=== PATIENT | female | born 1965 | race African-American/Black ===

== ENCOUNTER 2018-12-10 16:48 | Inpatient (IN) | payer MEDICAID, OTHER ==
[~2018-12-10] VITALS: Ht 157.5 cm; Wt 142.2 kg
[~2018-12-10 16:48] MED LIST: AMI2 PO; ATOR-2 PO; CARV6.2548 PO; CLOP75TA15 PO; FERR-63 PO; FURO20TA4 PO; LOSA25TA3 PO; NITR0.4T49 SL
[2018-12-10] MEDS ORDERED: FUROSEMIDE 40MG/4ML VIAL IV ONE (18:30)
[2018-12-10] MEDS ORDERED: NITROGLYCERIN OINT 1GM/INCH UDPKT TD ONE (18:30)
[2018-12-10] MEDS ORDERED: ASPIRIN 81MG TABLET PO ONE (18:30)
[2018-12-10 19:12] LABS: BASOPHILS % 0.8 % (0.0-2.0); EOSINOPHILS % 0.6 % (0.0-5.0); HEMATOCRIT. 39.2 % (36.0-48.0); HEMOGLOBIN. 12.6 g/dL (12.0-16.0); LYMPHOCYTES % 16.9 % (20.0-50.0); MEAN CORPUSCULAR HEMOGLOBIN 26.7 pg (28.0-32.0); MEAN CORPUSCULAR VOLUME 83.1 fL (81.0-99.0); MEAN PLATELET VOLUME 8.8 fl (7.4-10.4); MONOCYTES % 7.5 % (2.0-8.0); NEUTROPHILS % 74.2 % (40.0-76.0); PLATELET 317 x1000/uL (130-400); RED BLOOD CELL COUNT 4.72 mill/uL (4.2-5.4); RED CELL DISTRIBUTION WIDTH 15.3 % (11.6-14.6)
[2018-12-10 19:13] LABS: CHLORIDE 110 mEq/L (98-107)
[2018-12-10 19:16] LABS: INR 1.2; PARTIAL THROMBOPLASTIN TIME 27.7 sec (23.4-31.0)
[2018-12-10] MEDS ORDERED: MAGNESIUM/ALUMINUM HYDROXIDE/SIMETHICONE 30ML UDC PO PRN (21:00)
[2018-12-10] MEDS ORDERED: CLONIDINE 0.1MG TABLET PO PRN (21:00)
[2018-12-10] MEDS ORDERED: IPRATROPIUM/ALBUTEROL 0.5-3(2.5)MG/3ML NEB INH PRN (21:00)
[2018-12-10] MEDS ORDERED: GUAIFENESIN 200MG/10ML SUGAR FREE UDC PO PRN (21:00)
[2018-12-10] MEDS ORDERED: ACETAMINOPHEN 325MG TABLET PO PRN (21:00)
[2018-12-10] MEDS ORDERED: DOCUSATE SODIUM 100MG CAPSULE PO PRN (21:00)
[2018-12-10] MEDS ORDERED: ONDANSETRON HCL 4MG/2ML INJ IV PRN (21:00)
[2018-12-10] MEDS ORDERED: ENOXAPARIN 40MG/0.4ML SYR SUBCUT SCH (21:00)
[2018-12-11 00:39] LABS: CHLORIDE 108 mEq/L (98-107)
[2018-12-11 00:48] LABS: CREATINE KINASE 56 IU/L (26-192)
[2018-12-11 00:50] LABS: CREATINE KINASE MB FRACTION < 1.0 ng/mL (0.5-3.6)
[2018-12-11 05:55] LABS: BASOPHILS % 0.6 % (0.0-2.0); EOSINOPHILS % 0.5 % (0.0-5.0); HEMATOCRIT. 39.4 % (36.0-48.0); HEMOGLOBIN. 12.6 g/dL (12.0-16.0); LYMPHOCYTES % 17.3 % (20.0-50.0); MEAN CORPUSCULAR HEMOGLOBIN 26.4 pg (28.0-32.0); MEAN CORPUSCULAR VOLUME 82.5 fL (81.0-99.0); MEAN PLATELET VOLUME 8.9 fl (7.4-10.4); MONOCYTES % 8.4 % (2.0-8.0); NEUTROPHILS % 73.2 % (40.0-76.0); PLATELET 307 x1000/uL (130-400); RED BLOOD CELL COUNT 4.78 mill/uL (4.2-5.4)
[2018-12-11 05:59] LABS: LDL CHOLESTEROL 97 mg/dL (5-100)
[2018-12-11 06:00] LABS: CREATINE KINASE 61 IU/L (26-192); HDL CHOLESTEROL 45 mg/dL (40-59)
[2018-12-11 06:02] LABS: CREATINE KINASE MB FRACTION < 1.0 ng/mL (0.5-3.6)
[2018-12-11 08:30] VITALS: BP 168/88
[2018-12-11] MEDS: FUROSEMIDE 40MG/4ML VIAL IV SCH ×2 (10:22→17:49)
[2018-12-11] MEDS: HYDROCODONE/ACETAMINOPHEN 5/325MG TABLET PO PRN ×3 (10:23→21:57)
[2018-12-11] MEDS: ENOXAPARIN 30MG/0.3ML SYR SUBCUT SCH ×2 (10:24→21:57)
[2018-12-11 12:00] VITALS: BP 120/56
[2018-12-11 16:00] VITALS: BP 124/70
[2018-12-11 20:28] VITALS: BP 123/52
[2018-12-12] VITALS: BP 135/80
[2018-12-12 04:00] VITALS: BP 128/77
[2018-12-12] MEDS: HYDROCODONE/ACETAMINOPHEN 5/325MG TABLET PO PRN ×2 (05:27→13:01)
[2018-12-12] MEDS: FUROSEMIDE 40MG/4ML VIAL IV SCH ×2 (06:27→17:15)
[2018-12-12 07:51] LABS: CHLORIDE 102 mEq/L (98-107)
[2018-12-12 08:00] VITALS: BP 146/81
[2018-12-12] MEDS ORDERED: CARVEDILOL 6.25 MG TABLET PO SCH (09:00)
[2018-12-12] MEDS ORDERED: CLOPIDOGREL 75MG TABLET PO SCH (09:00)
[2018-12-12] MEDS ORDERED: LOSARTAN POTASSIUM 25 MG TABLET PO SCH (09:00)
[2018-12-12] MEDS ORDERED: AMIODARONE HCL 200 MG TABLET PO SCH (09:00)
[2018-12-12] MEDS: ENOXAPARIN 30MG/0.3ML SYR SUBCUT SCH (09:19)
[2018-12-12 12:00] VITALS: BP 153/84
[2018-12-12] MEDS: FERROUS SULFATE 325MG TABLET PO SCH ×2 (12:53→17:16)
[2018-12-12 14:16] VITALS: BP 140/84
[2018-12-12] MEDS ORDERED: ENOXAPARIN 40MG/0.4ML SYR SUBCUT SCH ×2 (15:57→21:00)
[2018-12-12 16:00] VITALS: BP 140/80
[2018-12-12] MEDS ORDERED: ATORVASTATIN CALCIUM 40MG TABLET PO SCH (21:00)
== END 2018-12-12 17:56 | disposition home or self-care (01) | DRG 194 ==
LOC: ER 16:48 → 6WST 21:54 → EDBEDREQ 21:55 → EDBEDREQTM 21:55 → ENRESERV 12-11 07:15
PROVIDERS: ADMIT Internal Medicine; ATTEND Internal Medicine
DX: I11.0 Hypertensive heart disease with heart failure (principal); J96.10 Chronic respiratory failure, unspecified whether with hypoxia or hypercapnia; I27.20 Pulmonary hypertension, unspecified; I50.23 Acute on chronic systolic (congestive) heart failure; E78.5 Hyperlipidemia, unspecified; D72.829 Elevated white blood cell count, unspecified; G47.00 Insomnia, unspecified; I25.10 Atherosclerotic heart disease of native coronary artery without angina pectoris; I25.2 Old myocardial infarction; Z95.810 Presence of automatic (implantable) cardiac defibrillator; Z86.79 Personal history of other diseases of the circulatory system; Z95.5 Presence of coronary angioplasty implant and graft; Z79.899 Other long term (current) drug therapy
CPT/HCPCS: 36415; 71045; 80048; 80061; 82550; 82553; 83735; 83880; 84443; 84484; 85379; 93005; 93306; 93970; 96374; 99285; J1650; J1940

== ENCOUNTER 2018-12-27 18:05 | Emergency (ER) | payer MEDICAID, OTHER ==
[~2018-12-27] VITALS: Ht 160 cm; Wt 136.0 kg
[2018-12-27] MEDS ORDERED: ACETAMINOPHEN 325MG TABLET PO STA (18:54)
[2018-12-27 19:03] LABS: BASOPHILS % 0.4 % (0.0-2.0); EOSINOPHILS % 0.8 % (0.0-5.0); HEMATOCRIT. 41.2 % (36.0-48.0); HEMOGLOBIN. 13.4 g/dL (12.0-16.0); LYMPHOCYTES % 25.2 % (20.0-50.0); MEAN CORPUSCULAR VOLUME 83.4 fL (81.0-99.0); MONOCYTES % 12.3 % (2.0-8.0); NEUTROPHILS % 61.3 % (40.0-76.0); PLATELET 249 x1000/uL (130-400); RED BLOOD CELL COUNT 4.94 mill/uL (4.2-5.4); RED CELL DISTRIBUTION WIDTH 14.7 % (11.6-14.6)
[2018-12-27 19:07] LABS: CHLORIDE 92 mEq/L (98-107)
[2018-12-27 19:08] LABS: INR 1.1; PROTHROMBIN TIME 11.4 sec (9.6-11.0)
[2018-12-27 20:30] VITALS: BP 127/81
[2018-12-27] MEDS: POTASSIUM CHLORIDE 20MEQ TABLET SR PO NR (20:30)
== END 2018-12-27 20:57 | disposition home or self-care (01) ==
LOC: ER 18:27
DX: I11.0 Hypertensive heart disease with heart failure (principal); I50.9 Heart failure, unspecified; R07.9 Chest pain, unspecified; R06.02 Shortness of breath; I25.2 Old myocardial infarction; Z79.899 Other long term (current) drug therapy; Z88.6 Allergy status to analgesic agent; Z95.0 Presence of cardiac pacemaker
CPT/HCPCS: 36415; 71045; 81025; 84484; 93005; 99284

== ENCOUNTER 2019-01-31 23:36 | Emergency (ER) | payer MEDICAID ==
[~2019-01-31] VITALS: Ht 162.6 cm; Wt 127.0 kg
[2019-02-01] MEDS ORDERED: FUROSEMIDE 40MG/4ML VIAL IV ONE
[2019-02-01] MEDS ORDERED: ASPIRIN 81MG TABLET PO ONE
[2019-02-01 01:01] LABS: CHLORIDE 104 mEq/L (98-107)
[2019-02-01 01:04] LABS: BASOPHILS % 0.4 % (0.0-2.0); EOSINOPHILS % 0.4 % (0.0-5.0); HEMATOCRIT. 37.3 % (36.0-48.0); HEMOGLOBIN. 12.4 g/dL (12.0-16.0); LYMPHOCYTES % 18.3 % (20.0-50.0); MEAN CORPUSCULAR VOLUME 84.5 fL (81.0-99.0); MEAN PLATELET VOLUME 8.6 fl (7.4-10.4); MONOCYTES % 8.7 % (2.0-8.0); NEUTROPHILS % 72.2 % (40.0-76.0); PLATELET 263 x1000/uL (130-400); RED BLOOD CELL COUNT 4.42 mill/uL (4.2-5.4); RED CELL DISTRIBUTION WIDTH 15.5 % (11.6-14.6)
[2019-02-01] MEDS ORDERED: KETOROLAC 30MG/ML VIAL IV ONE (04:00)
[2019-02-01 05:03] VITALS: BP 122/63
== END 2019-02-01 05:04 | disposition home or self-care (01) ==
LOC: ER 23:38
DX: I11.0 Hypertensive heart disease with heart failure (principal); I50.9 Heart failure, unspecified; J44.9 Chronic obstructive pulmonary disease, unspecified; E78.00 Pure hypercholesterolemia, unspecified; Z79.899 Other long term (current) drug therapy; Z88.6 Allergy status to analgesic agent
CPT/HCPCS: 36415; 71045; 80053; 83880; 84484; 85025; 93005; 96374; 96375; 99284; J1885; J1940; Z7610

== ENCOUNTER 2019-02-23 06:32 | Inpatient (IN) | payer MEDICAID, OTHER ==
[~2019-02-23] VITALS: Ht 157.5 cm; Wt 131.1 kg
[2019-02-23 07:33] LABS: BASOPHILS % 0.3 % (0.0-2.0); EOSINOPHILS % 0.8 % (0.0-5.0); HEMOGLOBIN. 13.5 g/dL (12.0-16.0); LYMPHOCYTES % 21.8 % (20.0-50.0); MEAN CORPUSCULAR HEMOGLOBIN 27.5 pg (28.0-32.0); MEAN CORPUSCULAR VOLUME 83.3 fL (81.0-99.0); MONOCYTES % 10.9 % (2.0-8.0); NEUTROPHILS % 66.2 % (40.0-76.0); PLATELET 287 x1000/uL (130-400); RED BLOOD CELL COUNT 4.92 mill/uL (4.2-5.4); RED CELL DISTRIBUTION WIDTH 15.3 % (11.6-14.6)
[2019-02-23 07:50] LABS: CHLORIDE 95 mEq/L (98-107)
[2019-02-23 08:03] LABS: INR 1.2; PARTIAL THROMBOPLASTIN TIME 25.9 sec (23.4-31.0); PROTHROMBIN TIME 11.8 sec (9.6-11.0)
[2019-02-23] MEDS ORDERED: POTASSIUM CHLORIDE 20MEQ TABLET SR PO ONE (08:15)
[2019-02-23] MEDS ORDERED: NITROGLYCERIN OINT 1GM/INCH UDPKT TD ONE (08:15)
[2019-02-23] MEDS ORDERED: MORPHINE SULFATE 4 MG/ML CPJ (NOT FOR IM USE) IV ONE (08:15)
[2019-02-23] MEDS ORDERED: ONDANSETRON HCL 4MG/2ML INJ IV ONE (08:15)
[2019-02-23 09:41] VITALS: BP 116/72
[2019-02-23] MEDS ORDERED: POTA-79 MT (10:07)
[2019-02-23] MEDS ORDERED: NITROGLYCERIN 0.4MG TABLET SL SL PRN (10:45)
[2019-02-23 10:49] VITALS: BP 116/72
[2019-02-23] MEDS: LOSARTAN POTASSIUM 25 MG TABLET PO SCH (11:53)
[2019-02-23] MEDS: CLOPIDOGREL 75MG TABLET PO SCH (11:53)
[2019-02-23] MEDS: FERROUS SULFATE 325MG TABLET PO SCH ×2 (11:54→18:02)
[2019-02-23] MEDS: TRAMADOL 50MG TABLET PO PRN ×2 (11:59→18:02)
[2019-02-23 12:00] VITALS: BP 118/67
[2019-02-23 12:25] VITALS: BP 112/52
[2019-02-23 16:30] VITALS: BP 110/54
[2019-02-23 20:00] VITALS: BP 91/43
[2019-02-23] MEDS: ATORVASTATIN CALCIUM 40MG TABLET PO SCH (20:33)
[2019-02-23] MEDS: CARVEDILOL 6.25 MG TABLET PO SCH (20:33)
[2019-02-23] MEDS ORDERED: CLONIDINE 0.1MG TABLET PO PRN (20:45)
[2019-02-23] MEDS ORDERED: TEMAZEPAM 15MG CAPSULE PO PRN (20:45)
[2019-02-23] MEDS ORDERED: MAGNESIUM HYDROXIDE 400MG/5ML 30ML UDC PO PRN (20:45)
[2019-02-23] MEDS ORDERED: MAGNESIUM/ALUMINUM HYDROXIDE/SIMETHICONE 30ML UDC PO PRN (20:45)
[2019-02-23] MEDS ORDERED: ONDANSETRON HCL 4MG/2ML INJ IV PRN (20:45)
[2019-02-23] MEDS ORDERED: DIPHENHYDRAMINE 50MG/ML VIAL IV PRN (20:45)
[2019-02-23] MEDS ORDERED: GUAIFENESIN 200MG/10ML SUGAR FREE UDC PO PRN (20:45)
[2019-02-23] MEDS ORDERED: CARVEDILOL 6.25 MG TABLET PO SCH (21:00)
[2019-02-23] MEDS ORDERED: AMIODARONE HCL 200 MG TABLET PO SCH (21:00)
[2019-02-23] MEDS ORDERED: ATORVASTATIN CALCIUM 40MG TABLET PO SCH (21:00)
[2019-02-23] MEDS: FAMOTIDINE 20MG TABLET PO SCH (21:13)
[2019-02-23] MEDS: ENOXAPARIN 30MG/0.3ML SYR SUBCUT SCH (21:17)
[2019-02-23] MEDS: SODIUM CHLORIDE 0.9% INJ 3ML FLUSH IVF SCH (22:29)
[2019-02-24] VITALS: BP 97/42
[2019-02-24 04:00] VITALS: BP 111/47
[2019-02-24] MEDS: SODIUM CHLORIDE 0.9% INJ 3ML FLUSH IVF SCH ×3 (05:53→21:17)
[2019-02-24 07:36] VITALS: BP 112/61
[2019-02-24 07:45] LABS: BASOPHILS % 0.5 % (0.0-2.0); EOSINOPHILS % 0.4 % (0.0-5.0); HEMATOCRIT. 37.5 % (36.0-48.0); HEMOGLOBIN. 12.2 g/dL (12.0-16.0); LYMPHOCYTES % 22.5 % (20.0-50.0); MEAN CORPUSCULAR HEMOGLOBIN 27.2 pg (28.0-32.0); MEAN CORPUSCULAR VOLUME 83.8 fL (81.0-99.0); MEAN PLATELET VOLUME 8.9 fl (7.4-10.4); MONOCYTES % 13.4 % (2.0-8.0); NEUTROPHILS % 63.2 % (40.0-76.0); PLATELET 263 x1000/uL (130-400); RED BLOOD CELL COUNT 4.48 mill/uL (4.2-5.4); RED CELL DISTRIBUTION WIDTH 15.1 % (11.6-14.6)
[2019-02-24 08:20] LABS: CHLORIDE 96 mEq/L (98-107)
[2019-02-24] MEDS: FAMOTIDINE 20MG TABLET PO SCH (08:37)
[2019-02-24] MEDS: AMIODARONE HCL 200 MG TABLET PO SCH ×2 (08:38→21:17)
[2019-02-24] MEDS: POTASSIUM CHLORIDE 20MEQ TABLET SR PO SCH (08:39)
[2019-02-24] MEDS: CLOPIDOGREL 75MG TABLET PO SCH (08:39)
[2019-02-24] MEDS: LOSARTAN POTASSIUM 25 MG TABLET PO SCH (08:40)
[2019-02-24] MEDS: FERROUS SULFATE 325MG TABLET PO SCH ×3 (08:40→16:54)
[2019-02-24] MEDS: TRAMADOL 50MG TABLET PO PRN ×2 (08:43→19:20)
[2019-02-24] MEDS: FUROSEMIDE 40MG/4ML VIAL IVP SCH (08:45)
[2019-02-24] MEDS ORDERED: FERROUS SULFATE 325MG TABLET PO SCH (09:00)
[2019-02-24] MEDS ORDERED: LOSARTAN POTASSIUM 25 MG TABLET PO SCH (09:00)
[2019-02-24] MEDS: CARVEDILOL 6.25 MG TABLET PO SCH ×2 (09:00→20:38)
[2019-02-24] MEDS ORDERED: CLOPIDOGREL 75MG TABLET PO SCH (09:00)
[2019-02-24] MEDS ORDERED: POTASSIUM CHLORIDE 20MEQ TABLET SR PO NR ×2 (10:00→12:00)
[2019-02-24] MEDS: ENOXAPARIN 30MG/0.3ML SYR SUBCUT SCH ×2 (10:51→21:16)
[2019-02-24 11:41] LABS: T4 FREE 1.08 ng/dL (0.76-1.46)
[2019-02-24 12:11] VITALS: BP 106/54
[2019-02-24 15:21] LABS: CREATINE KINASE 40 IU/L (26-192)
[2019-02-24 15:22] LABS: CREATINE KINASE MB FRACTION < 1.0 ng/mL (0.5-3.6)
[2019-02-24 16:25] VITALS: BP 96/46
[2019-02-24 20:00] VITALS: BP 109/40
[2019-02-24] MEDS: ATORVASTATIN CALCIUM 40MG TABLET PO SCH (21:17)
[2019-02-25] VITALS: BP 142/87
[2019-02-25 00:21] LABS: CREATINE KINASE 47 IU/L (26-192)
[2019-02-25 00:22] LABS: CREATINE KINASE MB FRACTION < 1.0 ng/mL (0.5-3.6)
[2019-02-25] MEDS: TRAMADOL 50MG TABLET PO PRN ×4 (03:26→20:27)
[2019-02-25 04:00] VITALS: BP 110/45
[2019-02-25 07:47] LABS: CREATINE KINASE 50 IU/L (26-192); CREATINE KINASE MB FRACTION < 1.0 ng/mL (0.5-3.6)
[2019-02-25 08:00] VITALS: BP 114/53
[2019-02-25] MEDS: POTASSIUM CHLORIDE 20MEQ TABLET SR PO SCH (08:31)
[2019-02-25] MEDS: CLOPIDOGREL 75MG TABLET PO SCH (08:31)
[2019-02-25] MEDS: ASPIRIN 81MG TABLET PO SCH (08:31)
[2019-02-25] MEDS: FERROUS SULFATE 325MG TABLET PO SCH ×3 (08:31→20:24)
[2019-02-25] MEDS: AMIODARONE HCL 200 MG TABLET PO SCH ×2 (08:31→20:26)
[2019-02-25] MEDS: FUROSEMIDE 40MG/4ML VIAL IVP SCH (08:32)
[2019-02-25] MEDS: ENOXAPARIN 30MG/0.3ML SYR SUBCUT SCH (08:32)
[2019-02-25] MEDS: LOSARTAN POTASSIUM 25 MG TABLET PO SCH (08:32)
[2019-02-25] MEDS: CARVEDILOL 6.25 MG TABLET PO SCH ×2 (08:32→20:26)
[2019-02-25 12:32] VITALS: BP 98/49
[2019-02-25] MEDS: SODIUM CHLORIDE 0.9% INJ 3ML FLUSH IVF SCH ×2 (14:11→14:12)
[2019-02-25 16:58] VITALS: BP 100/51
[2019-02-25 20:00] VITALS: BP 100/63
[2019-02-25] MEDS: ATORVASTATIN CALCIUM 40MG TABLET PO SCH (20:24)
[2019-02-25] MEDS: FAMOTIDINE 20MG TABLET PO SCH (20:27)
[2019-02-25] MEDS: ENOXAPARIN 40MG/0.4ML SYR SUBCUT SCH (20:28)
[2019-02-26] VITALS: BP 102/55
[2019-02-26] MEDS: TRAMADOL 50MG TABLET PO PRN ×2 (03:36→09:22)
[2019-02-26 04:00] VITALS: BP 101/54
[2019-02-26] MEDS: SODIUM CHLORIDE 0.9% INJ 3ML FLUSH IVF SCH (06:35)
[2019-02-26 08:00] VITALS: BP 102/43
[2019-02-26] MEDS: LOSARTAN POTASSIUM 25 MG TABLET PO SCH ×2 (09:00→09:06)
[2019-02-26] MEDS: CARVEDILOL 6.25 MG TABLET PO SCH (09:00)
[2019-02-26] MEDS: AMIODARONE HCL 200 MG TABLET PO SCH (09:04)
[2019-02-26] MEDS: FUROSEMIDE 40MG/4ML VIAL IVP SCH (09:04)
[2019-02-26] MEDS: ENOXAPARIN 40MG/0.4ML SYR SUBCUT SCH (09:04)
[2019-02-26] MEDS: FERROUS SULFATE 325MG TABLET PO SCH (09:06)
[2019-02-26] MEDS: POTASSIUM CHLORIDE 20MEQ TABLET SR PO SCH (09:06)
[2019-02-26] MEDS: ASPIRIN 81MG TABLET PO SCH (09:06)
[2019-02-26] MEDS: CLOPIDOGREL 75MG TABLET PO SCH (09:06)
[2019-02-26 11:48] VITALS: BP 113/43
[2019-02-26 12:14] VITALS: BP 113/46
[2019-03-08] MEDS ORDERED: CLOP75TA4 PO (01:25)
[2019-03-08] MEDS ORDERED: TRAM50TA3 PO (01:25)
[2019-03-08] MEDS ORDERED: SIMV20TA6 PO (01:25)
== END 2019-02-26 14:40 | disposition home or self-care (01) | DRG 198 ==
LOC: ER 06:32 → EDBEDREQ 07:41 → ENRESERV 08:10 → 7WST 09:25
PROVIDERS: ADMIT Internal Medicine; ATTEND Internal Medicine
DX: I25.9 Chronic ischemic heart disease, unspecified (principal); I50.23 Acute on chronic systolic (congestive) heart failure; I27.20 Pulmonary hypertension, unspecified; I42.9 Cardiomyopathy, unspecified; E66.01 Morbid (severe) obesity due to excess calories; Z68.43 Body mass index [BMI] 50.0-59.9, adult; I11.0 Hypertensive heart disease with heart failure; E78.00 Pure hypercholesterolemia, unspecified; E78.5 Hyperlipidemia, unspecified; I25.10 Atherosclerotic heart disease of native coronary artery without angina pectoris; J44.9 Chronic obstructive pulmonary disease, unspecified; Z95.0 Presence of cardiac pacemaker; Z95.810 Presence of automatic (implantable) cardiac defibrillator; I25.2 Old myocardial infarction; Z88.8 Allergy status to other drugs, medicaments and biological substances; Z95.5 Presence of coronary angioplasty implant and graft; Z88.6 Allergy status to analgesic agent; Z79.899 Other long term (current) drug therapy; Z98.891 History of uterine scar from previous surgery; Z90.49 Acquired absence of other specified parts of digestive tract
CPT/HCPCS: 36415; 71045; 78582; 80048; 80061; 82550; 82553; 83036; 83880; 84439; 84443; 84484; 85379; 93005; 93306; 93970; 99285; A9558; C1893; J1650; J1940; J2270; J2405; J7050

== ENCOUNTER 2019-03-19 15:58 | Emergency (ER) | payer MEDICAID, MEDICARE, OTHER ==
[~2019-03-19] VITALS: Ht 167.6 cm; Wt 136.0 kg
[~2019-03-19 15:58] MED LIST changes: +CLOP75TA4 PO; +POTA-79 MT; +SIMV20TA6 PO; +TRAM50TA3 PO
[2019-03-19 16:45] LABS: BASOPHILS % 0.2 % (0.0-2.0); EOSINOPHILS % 1.3 % (0.0-5.0); HEMATOCRIT. 35.2 % (36.0-48.0); HEMOGLOBIN. 11.4 g/dL (12.0-16.0); LYMPHOCYTES % 12.6 % (20.0-50.0); MEAN CORPUSCULAR HEMOGLOBIN 27.2 pg (28.0-32.0); MEAN CORPUSCULAR VOLUME 84.1 fL (81.0-99.0); MEAN PLATELET VOLUME 8.7 fl (7.4-10.4); MONOCYTES % 10.2 % (2.0-8.0); NEUTROPHILS % 75.7 % (40.0-76.0); PLATELET 247 x1000/uL (130-400); RED BLOOD CELL COUNT 4.19 mill/uL (4.2-5.4); RED CELL DISTRIBUTION WIDTH 15.6 % (11.6-14.6)
[2019-03-19 16:48] LABS: CHLORIDE 104 mEq/L (98-107)
[2019-03-19] MEDS ORDERED: FUROSEMIDE 40MG/4ML VIAL IVP ONE (17:00)
[2019-03-19 18:30] VITALS: BP 132/76
== END 2019-03-19 19:03 | disposition home or self-care (01) ==
LOC: ER 15:58
DX: R06.02 Shortness of breath (principal); D72.829 Elevated white blood cell count, unspecified; D64.9 Anemia, unspecified; I25.2 Old myocardial infarction; J44.9 Chronic obstructive pulmonary disease, unspecified; I11.0 Hypertensive heart disease with heart failure; I50.9 Heart failure, unspecified; Z88.6 Allergy status to analgesic agent; Z79.899 Other long term (current) drug therapy
CPT/HCPCS: 36415; 71045; 80053; 83880; 84484; 85025; 93005; 96374; 99284; J1940

== ENCOUNTER 2019-03-22 18:40 | Inpatient (IN) | payer MEDICAID, OTHER ==
[~2019-03-22] VITALS: Ht 157.5 cm; Wt 115.2 kg
[2019-03-22] MEDS ORDERED: SODIUM CHLORIDE 0.9% 1,000 ML IV ONE (19:34)
[2019-03-22 20:28] LABS: BASOPHILS % 0.3 % (0.0-2.0); EOSINOPHILS % 1.7 % (0.0-5.0); HEMATOCRIT. 37.1 % (36.0-48.0); HEMOGLOBIN. 12.1 g/dL (12.0-16.0); LYMPHOCYTES % 13.4 % (20.0-50.0); MEAN CORPUSCULAR HEMOGLOBIN 27.5 pg (28.0-32.0); MEAN CORPUSCULAR VOLUME 84.6 fL (81.0-99.0); MEAN PLATELET VOLUME 8.8 fl (7.4-10.4); MONOCYTES % 8.1 % (2.0-8.0); NEUTROPHILS % 76.5 % (40.0-76.0); PLATELET 273 x1000/uL (130-400); RED BLOOD CELL COUNT 4.38 mill/uL (4.2-5.4); RED CELL DISTRIBUTION WIDTH 15.6 % (11.6-14.6)
[2019-03-22] MEDS ORDERED: FUROSEMIDE 40MG/4ML VIAL IV ONE (20:45)
[2019-03-22] MEDS ORDERED: ASPIRIN 81MG TABLET PO ONE (20:45)
[2019-03-22] MEDS ORDERED: NITROGLYCERIN OINT 1GM/INCH UDPKT TD ONE (20:45)
[2019-03-22 20:50] LABS: CHLORIDE 102 mEq/L (98-107)
[2019-03-23] VITALS (8 sets, daily range): BP systolic 108–130; BP diastolic 61–92
[2019-03-23] MEDS ORDERED: POTA-9 PO (00:56)
[2019-03-23] MEDS ORDERED: FURO40TA5 PO (00:56)
[2019-03-23] MEDS ORDERED: CARV25TA47 MT (01:02)
[2019-03-23] MEDS ORDERED: MORPHINE SULFATE 2 MG/ML CPJ (NOT FOR IM USE) IV PRN (01:15)
[2019-03-23] MEDS ORDERED: NITROGLYCERIN 0.4MG TABLET SL SL PRN (01:30)
[2019-03-23 06:35] LABS: BASOPHILS % 0.3 % (0.0-2.0); EOSINOPHILS % 1.7 % (0.0-5.0); HEMATOCRIT. 35.1 % (36.0-48.0); HEMOGLOBIN. 11.6 g/dL (12.0-16.0); LYMPHOCYTES % 18.6 % (20.0-50.0); MEAN CORPUSCULAR HEMOGLOBIN 27.8 pg (28.0-32.0); MEAN CORPUSCULAR VOLUME 84.1 fL (81.0-99.0); MEAN PLATELET VOLUME 8.8 fl (7.4-10.4); MONOCYTES % 11.3 % (2.0-8.0); NEUTROPHILS % 68.1 % (40.0-76.0); PLATELET 254 x1000/uL (130-400); RED BLOOD CELL COUNT 4.17 mill/uL (4.2-5.4)
[2019-03-23 06:52] LABS: CHLORIDE 105 mEq/L (98-107)
[2019-03-23] MEDS: FERROUS SULFATE 325MG TABLET PO SCH ×3 (07:50→17:15)
[2019-03-23] MEDS ORDERED: FUROSEMIDE 40MG TABLET PO SCH (09:00)
[2019-03-23] MEDS: FUROSEMIDE 40MG/4ML VIAL IVP SCH ×2 (11:34→17:15)
[2019-03-23] MEDS: ENOXAPARIN 40MG/0.4ML SYR SUBCUT SCH ×2 (11:35→21:46)
[2019-03-23] MEDS: CARVEDILOL 12.5MG TABLET PO SCH ×2 (11:35→21:45)
[2019-03-23] MEDS: POTASSIUM CHLORIDE 10MEQ TABLET SR PO SCH ×2 (11:35→17:15)
[2019-03-23] MEDS: AMIODARONE HCL 200 MG TABLET PO SCH ×2 (11:36→21:45)
[2019-03-23] MEDS: CLOPIDOGREL 75MG TABLET PO SCH (11:36)
[2019-03-23] MEDS ORDERED: ACETAMINOPHEN 325MG TABLET PO PRN (13:15)
[2019-03-23] MEDS: LOSARTAN POTASSIUM 25 MG TABLET PO SCH (13:31)
[2019-03-23] MEDS: TRAMADOL 50MG TABLET PO PRN ×2 (13:38→20:49)
[2019-03-23 14:46] LABS: CLARITY URINE CLEAR (CLEAR); COLOR URINE YELLOW (YELLOW); KETONES URINE NEGATIVE (NEGATIVE); LEUKOCYTE ESTERASE URINE NEGATIVE (NEGATIVE); NITRITE URINE NEGATIVE (NEGATIVE); OCCULT BLOOD URINE NEGATIVE (NEGATIVE); PH URINE 6.5 (4.5-8.0); PROTEIN URINE NEGATIVE (NEGATIVE); SPECIFIC GRAVITY URINE 1.008 (1.005-1.030); UROBILINOGEN URINE 0.2 E.U./dL (0.2-1.0)
[2019-03-23 15:02] LABS: *AMPHETAMINES SCREEN URINE NEGATIVE (NEGATIVE); CANNABINOID URINE SCREEN NEGATIVE (NEGATIVE); PHENCYCLIDINE URINE SCREEN NEGATIVE (NEGATIVE)
[2019-03-23 15:03] LABS: *BARBITURATES SCREEN URINE NEGATIVE (NEGATIVE); *BENZODIAZEPINES SCREEN URINE NEGATIVE (NEGATIVE); *COCAINE SCREEN URINE NEGATIVE (NEGATIVE); METHADONE URINE SCREEN NEGATIVE (NEGATIVE); OPIATES URINE SCREEN PRESUMTIVE POSITIVE (NEGATIVE)
[2019-03-23] MEDS ORDERED: ATORVASTATIN CALCIUM 20MG TABLET PO SCH (21:00)
[2019-03-23] MEDS ORDERED: DOCUSATE SODIUM 250MG CAPSULE PO PRN (21:15)
[2019-03-23] MEDS ORDERED: NA PHOS,M-B/NA PHOS,DI-BA ENEMA 118ML PR PRN (21:15)
[2019-03-24] VITALS: BP 106/53
[2019-03-24 04:30] VITALS: BP 131/60
[2019-03-24] MEDS ORDERED: DOCUSATE SODIUM 250MG CAPSULE PO PRN (05:30)
[2019-03-24] MEDS: TRAMADOL 50MG TABLET PO PRN ×2 (06:41→12:15)
[2019-03-24 08:04] LABS: BASOPHILS % 0.2 % (0.0-2.0); EOSINOPHILS % 0.8 % (0.0-5.0); HEMATOCRIT. 37.9 % (36.0-48.0); HEMOGLOBIN. 12.3 g/dL (12.0-16.0); LYMPHOCYTES % 14.9 % (20.0-50.0); MEAN CORPUSCULAR HEMOGLOBIN 27.7 pg (28.0-32.0); MEAN CORPUSCULAR VOLUME 85.1 fL (81.0-99.0); MEAN PLATELET VOLUME 8.9 fl (7.4-10.4); MONOCYTES % 6.8 % (2.0-8.0); NEUTROPHILS % 77.3 % (40.0-76.0); PLATELET 291 x1000/uL (130-400); RED BLOOD CELL COUNT 4.46 mill/uL (4.2-5.4); RED CELL DISTRIBUTION WIDTH 15.9 % (11.6-14.6)
[2019-03-24 08:13] VITALS: BP 106/64
[2019-03-24 08:13] LABS: CHLORIDE 102 mEq/L (98-107)
[2019-03-24] MEDS: FUROSEMIDE 40MG/4ML VIAL IVP SCH (08:13)
[2019-03-24] MEDS: AMIODARONE HCL 200 MG TABLET PO SCH (08:19)
[2019-03-24] MEDS: CARVEDILOL 12.5MG TABLET PO SCH (08:19)
[2019-03-24] MEDS: CLOPIDOGREL 75MG TABLET PO SCH (08:19)
[2019-03-24] MEDS: LOSARTAN POTASSIUM 25 MG TABLET PO SCH (08:20)
[2019-03-24] MEDS: FERROUS SULFATE 325MG TABLET PO SCH ×2 (08:20→12:10)
[2019-03-24] MEDS: POTASSIUM CHLORIDE 10MEQ TABLET SR PO SCH (08:20)
[2019-03-24] MEDS: ENOXAPARIN 40MG/0.4ML SYR SUBCUT SCH (08:20)
[2019-03-24 12:00] VITALS: BP 105/57
[2019-03-24 13:53] VITALS: BP 105/57
[2019-03-24] MEDS ORDERED: ENOXAPARIN 30MG/0.3ML SYR SUBCUT SCH (21:00)
== END 2019-03-24 15:25 | disposition home or self-care (01) | DRG 194 ==
LOC: ER 18:40 → 6WST 21:23 → EDBEDREQ 21:24 → EDBEDREQTM 21:24 → ENRESERV 23:01
PROVIDERS: ADMIT Internal Medicine; ATTEND Internal Medicine
DX: I11.0 Hypertensive heart disease with heart failure (principal); E66.01 Morbid (severe) obesity due to excess calories; I50.43 Acute on chronic combined systolic (congestive) and diastolic (congestive) heart failure; J44.9 Chronic obstructive pulmonary disease, unspecified; G90.8 Other disorders of autonomic nervous system; I25.10 Atherosclerotic heart disease of native coronary artery without angina pectoris; E78.5 Hyperlipidemia, unspecified; Z95.810 Presence of automatic (implantable) cardiac defibrillator; Z90.49 Acquired absence of other specified parts of digestive tract; I25.2 Old myocardial infarction; Z68.42 Body mass index [BMI] 45.0-49.9, adult; Z88.6 Allergy status to analgesic agent; Z79.899 Other long term (current) drug therapy; Z79.02 Long term (current) use of antithrombotics/antiplatelets; Z71.3 Dietary counseling and surveillance
CPT/HCPCS: 36415; 71045; 80048; 80305; 82962; 83880; 84484; 93005; 96374; 99285; J1650; J1940; J2270; J7030

== ENCOUNTER 2019-05-31 10:40 | Inpatient (IN) | payer MEDICAID ==
[~2019-05-31] VITALS: Ht 160 cm; Wt 128.4 kg
[~2019-05-31 10:40] MED LIST changes: -ATOR-2 PO; +CARV25TA47 MT; -CARV6.2548 PO; -CLOP75TA4 PO; -FURO20TA4 PO; +FURO40TA5 PO; -POTA-79 MT; +POTA-9 PO
[2019-05-31] MEDS ORDERED: SODIUM CHLORIDE 0.9% 1,000 ML IV ONE (11:49)
[2019-05-31] MEDS ORDERED: ONDANSETRON HCL 4MG/2ML INJ IV ONE (12:15)
[2019-05-31 12:16] LABS: BASOPHILS % 0.4 % (0.0-2.0); EOSINOPHILS % 0.4 % (0.0-5.0); HEMATOCRIT. 37.6 % (36.0-48.0); HEMOGLOBIN. 12.3 g/dL (12.0-16.0); LYMPHOCYTES % 18.7 % (20.0-50.0); MEAN CORPUSCULAR HEMOGLOBIN 28.1 pg (28.0-32.0); MEAN CORPUSCULAR VOLUME 85.7 fL (81.0-99.0); MONOCYTES % 7.5 % (2.0-8.0); PLATELET 248 x1000/uL (130-400); RED BLOOD CELL COUNT 4.38 mill/uL (4.2-5.4); RED CELL DISTRIBUTION WIDTH 15.4 % (11.6-14.6)
[2019-05-31 12:19] LABS: CLARITY URINE CLEAR (CLEAR); COLOR URINE YELLOW (YELLOW); KETONES URINE NEGATIVE (NEGATIVE); LEUKOCYTE ESTERASE URINE NEGATIVE (NEGATIVE); NITRITE URINE NEGATIVE (NEGATIVE); OCCULT BLOOD URINE NEGATIVE (NEGATIVE); PROTEIN URINE NEGATIVE (NEGATIVE); SPECIFIC GRAVITY URINE 1.018 (1.005-1.030); UROBILINOGEN URINE 0.2 E.U./dL (0.2-1.0)
[2019-05-31 12:20] LABS: CHLORIDE 103 mEq/L (98-107)
[2019-05-31] MEDS ORDERED: SODIUM CHLORIDE 0.9% 1000ML BAG (SEPSIS BOLUS) IV ONE (13:00)
[2019-05-31] MEDS ORDERED: LEVOFLOXACIN 750MG PREMIX 150 ML IV ONE (13:00)
[2019-05-31] MEDS ORDERED: ASPIRIN 325MG EC TABLET PO ONE (13:00)
[2019-05-31] MEDS ORDERED: POTASSIUM CHLORIDE 20MEQ TABLET SR PO ONE (13:00)
[2019-05-31] MEDS ORDERED: FUROSEMIDE 40MG/4ML VIAL IVP ONE (13:30)
[2019-05-31 17:10] VITALS: BP 127/73
[2019-05-31] MEDS ORDERED: HYDR-4005 MT (18:08)
[2019-05-31] MEDS ORDERED: CLOP75TA4 PO (18:08)
[2019-05-31] MEDS ORDERED: FUROSEMIDE 40MG/4ML VIAL IVP SCH (18:30)
[2019-05-31] MEDS ORDERED: POTASSIUM CHLORIDE 20MEQ TABLET SR PO SCH (18:30)
[2019-05-31] MEDS: CLOPIDOGREL 75MG TABLET PO SCH (18:54)
[2019-05-31] MEDS: HYDROCODONE/ACETAMINOPHEN 10/325MG TABLET PO PRN (18:55)
[2019-05-31 20:00] VITALS: BP 128/65
[2019-05-31] MEDS ORDERED: ONDANSETRON HCL 4MG/2ML INJ IV PRN (20:00)
[2019-05-31] MEDS: CARVEDILOL 12.5MG TABLET PO SCH (21:07)
[2019-05-31] MEDS: ENOXAPARIN 30MG/0.3ML SYR SUBCUT SCH (21:07)
[2019-05-31] MEDS: ATORVASTATIN CALCIUM 20MG TABLET PO SCH (21:08)
[2019-05-31 22:50] VITALS: BP 127/73
[2019-06-01] VITALS: BP 110/57
[2019-06-01] MEDS: HYDROCODONE/ACETAMINOPHEN 10/325MG TABLET PO PRN ×4 (00:58→21:26)
[2019-06-01 04:00] VITALS: BP 111/51
[2019-06-01] MEDS: FUROSEMIDE 40MG/4ML VIAL IVP SCH ×2 (06:27→17:10)
[2019-06-01 08:00] VITALS: BP 107/71
[2019-06-01] MEDS: POTASSIUM CHLORIDE 20MEQ TABLET SR PO SCH ×2 (08:38→17:10)
[2019-06-01] MEDS: CLOPIDOGREL 75MG TABLET PO SCH ×2 (08:38→17:10)
[2019-06-01] MEDS: CARVEDILOL 12.5MG TABLET PO SCH ×2 (08:39→21:06)
[2019-06-01] MEDS: ENOXAPARIN 30MG/0.3ML SYR SUBCUT SCH ×2 (08:39→21:06)
[2019-06-01 12:00] VITALS: BP 105/59
[2019-06-01 16:00] VITALS: BP 115/61
[2019-06-01 20:00] VITALS: BP 117/77
[2019-06-01] MEDS: ATORVASTATIN CALCIUM 20MG TABLET PO SCH (21:05)
[2019-06-02] VITALS: BP 114/65
[2019-06-02 04:00] VITALS: BP 106/59
[2019-06-02] MEDS: HYDROCODONE/ACETAMINOPHEN 10/325MG TABLET PO PRN ×2 (06:27→13:39)
[2019-06-02] MEDS: FUROSEMIDE 40MG/4ML VIAL IVP SCH (06:27)
[2019-06-02 08:00] VITALS: BP 109/60
[2019-06-02 08:05] LABS: CHLORIDE 104 mEq/L (98-107)
[2019-06-02] MEDS ORDERED: LOSARTAN POTASSIUM 25 MG TABLET PO SCH (09:00)
[2019-06-02] MEDS: CARVEDILOL 12.5MG TABLET PO SCH (09:22)
[2019-06-02] MEDS: CLOPIDOGREL 75MG TABLET PO SCH (09:22)
[2019-06-02] MEDS: POTASSIUM CHLORIDE 20MEQ TABLET SR PO SCH (09:22)
[2019-06-02] MEDS: ENOXAPARIN 30MG/0.3ML SYR SUBCUT SCH (09:22)
[2019-06-02 12:00] VITALS: BP 105/61
[2019-06-02 15:37] VITALS: BP 117/60
[2019-06-02] MEDS ORDERED: ENOXAPARIN 40MG/0.4ML SYR SUBCUT SCH (21:00)
== END 2019-06-02 16:37 | disposition home or self-care (01) | DRG 194 ==
LOC: ER 10:40 → 7WST 15:12 → EDBEDREQTM 15:19 → EDBEDREQ 15:19 → EDBEDREQTM 15:21 → ENRESERV 16:11
PROVIDERS: ADMIT Internal Medicine; ATTEND Internal Medicine
DX: I13.0 Hypertensive heart and chronic kidney disease with heart failure and stage 1 through stage 4 chronic kidney disease, or unspecified chronic kidney disease (principal); E11.22 Type 2 diabetes mellitus with diabetic chronic kidney disease; I42.9 Cardiomyopathy, unspecified; Z68.43 Body mass index [BMI] 50.0-59.9, adult; I50.23 Acute on chronic systolic (congestive) heart failure; E66.9 Obesity, unspecified; E78.00 Pure hypercholesterolemia, unspecified; E78.5 Hyperlipidemia, unspecified; E87.6 Hypokalemia; I25.10 Atherosclerotic heart disease of native coronary artery without angina pectoris; K80.20 Calculus of gallbladder without cholecystitis without obstruction; J44.9 Chronic obstructive pulmonary disease, unspecified; N18.9 Chronic kidney disease, unspecified; Z95.810 Presence of automatic (implantable) cardiac defibrillator; Z88.8 Allergy status to other drugs, medicaments and biological substances; Z79.899 Other long term (current) drug therapy; Z71.3 Dietary counseling and surveillance; I25.2 Old myocardial infarction; Z90.49 Acquired absence of other specified parts of digestive tract; Z98.891 History of uterine scar from previous surgery
CPT/HCPCS: 36415; 71045; 80048; 81003; 83605; 83880; 84484; 93005; 96374; 99285; J1650; J1940; J1956; J2405; J7030; J7042

== ENCOUNTER 2019-07-05 21:44 | Inpatient (IN) | payer MEDICAID ==
[~2019-07-05] VITALS: Ht 165.1 cm; Wt 82.0 kg
[~2019-07-05 21:44] MED LIST changes: -AMI2 PO; -CLOP75TA15 PO; +CLOP75TA4 PO; -FERR-63 PO; +HYDR-4005 MT; -LOSA25TA3 PO; -NITR0.4T49 SL; -TRAM50TA3 PO
[2019-07-05] MEDS ORDERED: ASPIRIN 81MG TABLET PO ONE (22:00)
[2019-07-05] MEDS ORDERED: ONDANSETRON HCL 4MG/2ML INJ IV ONE (22:45)
[2019-07-05 23:14] LABS: CHLORIDE 105 mEq/L (98-107)
[2019-07-06 00:50] LABS: BASOPHILS % 0.3 % (0.0-2.0); EOSINOPHILS % 0.7 % (0.0-5.0); HEMATOCRIT. 40.9 % (36.0-48.0); HEMOGLOBIN. 13.4 g/dL (12.0-16.0); LYMPHOCYTES % 20.7 % (20.0-50.0); MEAN CORPUSCULAR HEMOGLOBIN 27.5 pg (28.0-32.0); MEAN CORPUSCULAR VOLUME 83.9 fL (81.0-99.0); MEAN PLATELET VOLUME 8.8 fl (7.4-10.4); NEUTROPHILS % 71.3 % (40.0-76.0); PLATELET 290 x1000/uL (130-400); RED BLOOD CELL COUNT 4.88 mill/uL (4.2-5.4); RED CELL DISTRIBUTION WIDTH 14.9 % (11.6-14.6)
[2019-07-06] MEDS ORDERED: ACETAMINOPHEN 500MG TABLET PO ONE (01:15)
[2019-07-06] MEDS ORDERED: GUAIFENESIN 200MG/10ML SUGAR FREE UDC PO PRN (03:30)
[2019-07-06] MEDS ORDERED: ACETAMINOPHEN 325MG TABLET PO PRN (03:30)
[2019-07-06] MEDS ORDERED: MORPHINE SULFATE 2 MG/ML CPJ (NOT FOR IM USE) IV PRN (03:30)
[2019-07-06] MEDS ORDERED: CLONIDINE 0.1MG TABLET PO PRN (03:30)
[2019-07-06] MEDS ORDERED: ONDANSETRON HCL 4MG/2ML INJ IV PRN (03:30)
[2019-07-06] MEDS ORDERED: FUROSEMIDE 40MG/4ML VIAL IV SCH (09:00)
[2019-07-06] MEDS ORDERED: ENOXAPARIN 40MG/0.4ML SYR SUBCUT SCH (09:00)
[2019-07-06] MEDS ORDERED: CLOPIDOGREL 75MG TABLET PO SCH (09:00)
[2019-07-06] MEDS ORDERED: CARVEDILOL 12.5MG TABLET PO SCH (09:00)
[2019-07-06 10:35] VITALS: BP 128/71
== END 2019-07-06 13:02 | disposition home or self-care (01) | DRG 194 ==
LOC: ER 21:44 → 7WST 07-06 00:03 → EDBEDREQDT 07-06 00:07 → EDBEDREQTM 07-06 00:07 → EDBEDREQ 07-06 00:07 → ENRESERV 07-06 06:56
PROVIDERS: ADMIT Hospitalist; ATTEND Hospitalist
DX: I11.0 Hypertensive heart disease with heart failure (principal); E78.5 Hyperlipidemia, unspecified; I50.21 Acute systolic (congestive) heart failure; I25.10 Atherosclerotic heart disease of native coronary artery without angina pectoris; Z95.5 Presence of coronary angioplasty implant and graft; Z88.6 Allergy status to analgesic agent; Z95.810 Presence of automatic (implantable) cardiac defibrillator
CPT/HCPCS: 36415; 71045; 83880; 84484; 93005; 99285; J2270; J2405

== ENCOUNTER 2019-08-14 00:51 | Inpatient (IN) | payer MEDICAID ==
[~2019-08-14] VITALS: Ht 160 cm; Wt 128.8 kg
[2019-08-14 04:30] LABS: EOSINOPHILS % 1.8 % (0.0-5.0); HEMOGLOBIN. 11.4 g/dL (12.0-16.0); LYMPHOCYTES % 25.9 % (20.0-50.0); MEAN CORPUSCULAR HEMOGLOBIN 27.2 pg (28.0-32.0); MEAN CORPUSCULAR VOLUME 83.3 fL (81.0-99.0); MEAN PLATELET VOLUME 8.6 fl (7.4-10.4); MONOCYTES % 7.7 % (2.0-8.0); NEUTROPHILS % 63.6 % (40.0-76.0); PLATELET 234 x1000/uL (130-400); RED BLOOD CELL COUNT 4.19 mill/uL (4.2-5.4); RED CELL DISTRIBUTION WIDTH 14.7 % (11.6-14.6)
[2019-08-14] MEDS ORDERED: ASPIRIN 81MG TABLET PO ONE (04:30)
[2019-08-14 04:38] LABS: CHLORIDE 110 mEq/L (98-107)
[2019-08-14] MEDS ORDERED: NITROGLYCERIN 0.4MG TABLET SL SL ONE (05:30)
[2019-08-14 10:00] VITALS: BP 135/62
[2019-08-14 10:33] VITALS: BP 135/62
[2019-08-14] MEDS: ASPIRIN 81MG TABLET PO SCH (14:10)
[2019-08-14] MEDS: CARVEDILOL 6.25 MG TABLET PO SCH ×2 (14:10→21:30)
[2019-08-14] MEDS: AMLODIPINE 5MG TABLET PO SCH ×2 (14:11→21:30)
[2019-08-14] MEDS: FUROSEMIDE 40MG TABLET PO SCH (14:11)
[2019-08-14] MEDS ORDERED: ACETAMINOPHEN 325MG TABLET PO PRN (15:15)
[2019-08-14] MEDS ORDERED: CLONIDINE 0.1MG TABLET PO PRN (15:15)
[2019-08-14] MEDS ORDERED: ONDANSETRON HCL 4MG/2ML INJ IV PRN (15:15)
[2019-08-14 16:00] VITALS: BP 121/62
[2019-08-14 20:00] VITALS: BP 121/76
[2019-08-14] MEDS ORDERED: ATORVASTATIN CALCIUM 20MG TABLET PO SCH (21:00)
[2019-08-14] MEDS: ENOXAPARIN 40MG/0.4ML SYR SUBCUT SCH (21:29)
[2019-08-14] MEDS: HYDROCODONE/APAP 7.5/325MG 1 TAB TABLET PO PRN (21:37)
[2019-08-15] VITALS (8 sets, daily range): BP systolic 107–124; BP diastolic 54–70
[2019-08-15 05:49] LABS: CHLORIDE 108 mEq/L (98-107)
[2019-08-15 05:58] LABS: CREATINE KINASE 43 IU/L (26-192)
[2019-08-15 06:00] LABS: BASOPHILS % 0.7 % (0.0-2.0); CREATINE KINASE MB FRACTION < 1.0 ng/mL (0.5-3.6); EOSINOPHILS % 1.7 % (0.0-5.0); HEMATOCRIT. 36.9 % (36.0-48.0); LYMPHOCYTES % 27.9 % (20.0-50.0); MEAN CORPUSCULAR HEMOGLOBIN 27.4 pg (28.0-32.0); MEAN CORPUSCULAR VOLUME 84.5 fL (81.0-99.0); MONOCYTES % 7.8 % (2.0-8.0); NEUTROPHILS % 61.9 % (40.0-76.0); PLATELET 249 x1000/uL (130-400); RED BLOOD CELL COUNT 4.37 mill/uL (4.2-5.4); RED CELL DISTRIBUTION WIDTH 14.8 % (11.6-14.6)
[2019-08-15] MEDS: HYDROCODONE/APAP 7.5/325MG 1 TAB TABLET PO PRN ×3 (06:11→19:26)
[2019-08-15] MEDS: CARVEDILOL 6.25 MG TABLET PO SCH (08:38)
[2019-08-15] MEDS: AMLODIPINE 5MG TABLET PO SCH (08:42)
[2019-08-15] MEDS: FUROSEMIDE 40MG TABLET PO SCH (08:46)
[2019-08-15] MEDS: ASPIRIN 81MG TABLET PO SCH (08:46)
[2019-08-15] MEDS: ENOXAPARIN 40MG/0.4ML SYR SUBCUT SCH (09:47)
[2019-08-15] MEDS ORDERED: MECL-109 PO (17:49)
[2019-08-15] MEDS ORDERED: CLOPIDOGREL 75MG TABLET PO NR (18:00)
[2019-08-15] MEDS ORDERED: MECLIZINE 25MG TABLET PO NR (18:00)
== END 2019-08-15 20:05 | disposition home or self-care (01) | DRG 203 ==
LOC: ER 00:51 → 7WST 06:58 → EDBEDREQ 07:00 → EDBEDREQTM 07:00 → ENRESERV 08:14
PROVIDERS: ADMIT Internal Medicine; ATTEND Internal Medicine
DX: M94.0 Chondrocostal junction syndrome [Tietze] (principal); I11.0 Hypertensive heart disease with heart failure; I50.9 Heart failure, unspecified; I42.9 Cardiomyopathy, unspecified; I25.10 Atherosclerotic heart disease of native coronary artery without angina pectoris; E66.9 Obesity, unspecified; E78.00 Pure hypercholesterolemia, unspecified; E78.5 Hyperlipidemia, unspecified; Z95.5 Presence of coronary angioplasty implant and graft; Z95.810 Presence of automatic (implantable) cardiac defibrillator; Z79.899 Other long term (current) drug therapy; Z68.43 Body mass index [BMI] 50.0-59.9, adult
CPT/HCPCS: 36415; 71045; 80048; 80053; 82550; 82553; 83880; 84484; 85025; 93005; 93970; 99285; J1650; J8597

== ENCOUNTER 2019-09-08 19:31 | Emergency (ER) | payer MEDICAID ==
[~2019-09-08] VITALS: Ht 165.1 cm; Wt 120.0 kg
[~2019-09-08 19:31] MED LIST changes: +MECL-159 PO; +SIMV-43 PO; -SIMV20TA6 PO
[2019-09-08] MEDS ORDERED: MAGNESIUM/ALUMINUM HYDROXIDE/SIMETHICONE 30ML UDC PO ONE (20:00)
[2019-09-08] MEDS ORDERED: VISCOUS LIDOCAINE 2% 15 ML UDC PO ONE (20:00)
[2019-09-08 20:53] LABS: BASOPHILS % 0.7 % (0.0-2.0); EOSINOPHILS % 1.2 % (0.0-5.0); HEMOGLOBIN. 11.7 g/dL (12.0-16.0); LYMPHOCYTES % 22.5 % (20.0-50.0); MEAN CORPUSCULAR HEMOGLOBIN 27.2 pg (28.0-32.0); MEAN CORPUSCULAR VOLUME 83.6 fL (81.0-99.0); MEAN PLATELET VOLUME 8.8 fl (7.4-10.4); MONOCYTES % 7.9 % (2.0-8.0); NEUTROPHILS % 67.7 % (40.0-76.0); PLATELET 259 x1000/uL (130-400); RED CELL DISTRIBUTION WIDTH 15.5 % (11.6-14.6)
[2019-09-08 20:57] LABS: CHLORIDE 109 mEq/L (98-107)
[2019-09-08] MEDS ORDERED: KETOROLAC 30MG/ML VIAL IV NR (21:30)
[2019-09-08 23:14] VITALS: BP 124/57
== END 2019-09-08 23:27 | disposition home or self-care (01) ==
LOC: ER 19:38
DX: R07.89 Other chest pain (principal); I11.0 Hypertensive heart disease with heart failure; I50.9 Heart failure, unspecified; I25.2 Old myocardial infarction; Z95.0 Presence of cardiac pacemaker; Z98.890 Other specified postprocedural states; Z79.899 Other long term (current) drug therapy
CPT/HCPCS: 36415; 71045; 80053; 83880; 84484; 85025; 93005; 96374; 99284; J1885

== ENCOUNTER 2019-09-27 19:34 | Emergency (ER) | payer MEDICAID ==
[~2019-09-27] VITALS: Ht 165.1 cm; Wt 96.0 kg
[2019-09-28] MEDS ORDERED: KETOROLAC 30MG/ML VIAL IV STA ×2 (01:41→06:40)
[2019-09-28] MEDS ORDERED: SODIUM CHLORIDE 0.9% 1,000 ML IV ONE (01:41)
[2019-09-28] MEDS ORDERED: ONDANSETRON HCL 4MG/2ML INJ IV ONE (01:45)
[2019-09-28] MEDS ORDERED: MAGNESIUM/ALUMINUM HYDROXIDE/SIMETHICONE 30ML UDC PO ONE (01:45)
[2019-09-28] MEDS ORDERED: FAMOTIDINE 20MG/2ML VIAL IV ONE ×2 (01:45→06:45)
[2019-09-28 02:06] LABS: CHLORIDE 108 mEq/L (98-107)
[2019-09-28 02:07] LABS: BASOPHILS % 0.8 % (0.0-2.0); HEMATOCRIT. 35.4 % (36.0-48.0); HEMOGLOBIN. 11.5 g/dL (12.0-16.0); LYMPHOCYTES % 19.9 % (20.0-50.0); MEAN CORPUSCULAR VOLUME 83.3 fL (81.0-99.0); MEAN PLATELET VOLUME 8.7 fl (7.4-10.4); MONOCYTES % 6.9 % (2.0-8.0); NEUTROPHILS % 71.4 % (40.0-76.0); PLATELET 244 x1000/uL (130-400); RED BLOOD CELL COUNT 4.25 mill/uL (4.2-5.4); RED CELL DISTRIBUTION WIDTH 15.2 % (11.6-14.6)
[2019-09-28 07:00] VITALS: BP 118/70
== END 2019-09-28 07:25 | disposition home or self-care (01) ==
LOC: ER 19:34
DX: K21.9 Gastro-esophageal reflux disease without esophagitis (principal); R07.9 Chest pain, unspecified; I11.0 Hypertensive heart disease with heart failure; I50.9 Heart failure, unspecified; Z95.0 Presence of cardiac pacemaker; Z98.890 Other specified postprocedural states
CPT/HCPCS: 36415; 71045; 80053; 82962; 83880; 84484; 85025; 93005; 96374; 96375; 96376; 99284; J1885; J2405; J3490; J7030

== ENCOUNTER 2019-10-14 19:49 | Emergency (ER) | payer MEDICAID ==
[~2019-10-14] VITALS: Ht 167.6 cm; Wt 95.0 kg
[2019-10-15] MEDS ORDERED: ONDANSETRON 4MG ODT PO STA (00:04)
[2019-10-15] MEDS ORDERED: HYDROCODONE/ACETAMINOPHEN 5/325MG TABLET PO STA (00:04)
[2019-10-15] MEDS ORDERED: MAGNESIUM/ALUMINUM HYDROXIDE/SIMETHICONE 30ML UDC PO ONE (00:15)
[2019-10-15 00:50] LABS: BASOPHILS % 0.9 % (0.0-2.0); EOSINOPHILS % 0.7 % (0.0-5.0); HEMATOCRIT. 37.9 % (36.0-48.0); HEMOGLOBIN. 12.4 g/dL (12.0-16.0); MEAN CORPUSCULAR HEMOGLOBIN 27.4 pg (28.0-32.0); MEAN CORPUSCULAR VOLUME 83.6 fL (81.0-99.0); MEAN PLATELET VOLUME 8.7 fl (7.4-10.4); MONOCYTES % 8.2 % (2.0-8.0); NEUTROPHILS % 65.2 % (40.0-76.0); PLATELET 251 x1000/uL (130-400); RED BLOOD CELL COUNT 4.54 mill/uL (4.2-5.4); RED CELL DISTRIBUTION WIDTH 15.3 % (11.6-14.6)
[2019-10-15 01:42] LABS: CHLORIDE 106 mEq/L (98-107)
[2019-10-15 03:07] VITALS: BP 112/68
== END 2019-10-15 03:48 | disposition home or self-care (01) ==
LOC: ER 19:49
DX: K21.9 Gastro-esophageal reflux disease without esophagitis (principal); R07.89 Other chest pain; I11.0 Hypertensive heart disease with heart failure; I50.9 Heart failure, unspecified; J44.9 Chronic obstructive pulmonary disease, unspecified; Z88.6 Allergy status to analgesic agent; Z79.899 Other long term (current) drug therapy; Z98.890 Other specified postprocedural states
CPT/HCPCS: 36415; 71045; 80053; 83690; 84484; 85025; 93005; 99285; Q0162

== ENCOUNTER 2019-10-15 04:54 | Emergency (ER) | payer MEDICAID ==
[~2019-10-15] VITALS: Ht 167.6 cm; Wt 111.0 kg
[2019-10-15 05:03] VITALS: BP 126/72
== END 2019-10-15 06:23 | disposition left against medical advice (07) ==
LOC: ER 04:54
DX: R07.9 Chest pain, unspecified (principal); Z53.21 Procedure and treatment not carried out due to patient leaving prior to being seen by health care provider

== ENCOUNTER 2019-11-11 20:12 | Inpatient (IN) | payer MEDICAID ==
[~2019-11-11] VITALS: Ht 165.1 cm; Wt 113.4 kg
[~2019-11-11 20:12] MED LIST changes: +ASPI-1160 PO; -CARV25TA47 MT; +COR12 PO; +FURO20TA4 PO; -FURO40TA5 PO; -POTA-9 PO
[2019-11-11] MEDS ORDERED: MAGNESIUM/ALUMINUM HYDROXIDE/SIMETHICONE 30ML UDC PO ONE (20:30)
[2019-11-11] MEDS ORDERED: VISCOUS LIDOCAINE 2% 15 ML UDC PO ONE (20:30)
[2019-11-11 21:01] LABS: EOSINOPHILS % 2.3 % (0.0-5.0); HEMATOCRIT. 34.7 % (36.0-48.0); HEMOGLOBIN. 11.6 g/dL (12.0-16.0); LYMPHOCYTES % 22.4 % (20.0-50.0); MEAN CORPUSCULAR HEMOGLOBIN 27.8 pg (28.0-32.0); MEAN CORPUSCULAR VOLUME 82.8 fL (81.0-99.0); MONOCYTES % 9.4 % (2.0-8.0); NEUTROPHILS % 64.9 % (40.0-76.0); PLATELET 226 x1000/uL (130-400); RED BLOOD CELL COUNT 4.19 mill/uL (4.2-5.4); RED CELL DISTRIBUTION WIDTH 15.2 % (11.6-14.6)
[2019-11-11 21:05] LABS: CHLORIDE 104 mEq/L (98-107)
[2019-11-11] MEDS ORDERED: ASPIRIN 325MG TABLET PO ONE (22:15)
[2019-11-11] MEDS ORDERED: NITROGLYCERIN 0.4MG TABLET SL SL ONE (22:15)
[2019-11-11] MEDS ORDERED: KETOROLAC 30MG/ML VIAL IV ONE (23:00)
[2019-11-11] MEDS ORDERED: ONDANSETRON HCL 4MG/2ML INJ IV PRN (23:30)
[2019-11-11] MEDS ORDERED: HYDROCODONE/ACETAMINOPHEN 5/325MG TABLET PO PRN (23:30)
[2019-11-11] MEDS ORDERED: LORAZEPAM 2MG/ML CPJ IV PRN (23:30)
[2019-11-12] MEDS ORDERED: THIAMINE HCL 100MG TABLET PO NR (00:15)
[2019-11-12] MEDS: POTASSIUM CHLORIDE 20MEQ TABLET SR PO SCH (01:59)
[2019-11-12] MEDS: MORPHINE SULFATE 2 MG/ML CPJ (NOT FOR IM USE) IV PRN ×4 (03:46→19:12)
[2019-11-12 03:54] VITALS: BP 139/69
[2019-11-12 04:00] VITALS: BP 152/67
[2019-11-12 08:00] VITALS: BP 139/80
[2019-11-12] MEDS: ASPIRIN 81MG EC TABLET PO SCH (08:44)
[2019-11-12] MEDS: ENOXAPARIN 30MG/0.3ML SYR SUBCUT SCH ×2 (08:45→21:08)
[2019-11-12] MEDS: FERROUS SULFATE 325MG TABLET PO SCH (09:00)
[2019-11-12 10:22] LABS: BASOPHILS % 0.4 % (0.0-2.0); EOSINOPHILS % 2.4 % (0.0-5.0); HEMATOCRIT. 37.8 % (36.0-48.0); LYMPHOCYTES % 25.5 % (20.0-50.0); MEAN CORPUSCULAR HEMOGLOBIN 27.2 pg (28.0-32.0); MEAN CORPUSCULAR VOLUME 85.4 fL (81.0-99.0); MEAN PLATELET VOLUME 9.4 fl (7.4-10.4); MONOCYTES % 9.6 % (2.0-8.0); NEUTROPHILS % 62.1 % (40.0-76.0); PLATELET 260 x1000/uL (130-400); RED BLOOD CELL COUNT 4.42 mill/uL (4.2-5.4); RED CELL DISTRIBUTION WIDTH 15.4 % (11.6-14.6)
[2019-11-12 10:29] LABS: CHLORIDE 106 mEq/L (98-107)
[2019-11-12 10:40] LABS: CREATINE KINASE 49 IU/L (26-192)
[2019-11-12 10:43] LABS: CREATINE KINASE MB FRACTION < 1.0 ng/mL (0.5-3.6)
[2019-11-12 12:00] VITALS: BP 139/79
[2019-11-12 16:00] VITALS: BP 105/63
[2019-11-12 17:06] LABS: CREATINE KINASE 51 IU/L (26-192)
[2019-11-12 17:07] LABS: CREATINE KINASE MB FRACTION < 1.0 ng/mL (0.5-3.6)
[2019-11-12 20:00] VITALS: BP 106/56
[2019-11-12] MEDS: CARVEDILOL 12.5MG TABLET PO SCH (21:08)
[2019-11-13] VITALS: BP 105/60
[2019-11-13] MEDS: MORPHINE SULFATE 2 MG/ML CPJ (NOT FOR IM USE) IV PRN ×2 (03:19→09:40)
[2019-11-13 08:00] VITALS: BP 129/69
[2019-11-13] MEDS ORDERED: LOSARTAN POTASSIUM 25 MG TABLET PO SCH (09:00)
[2019-11-13] MEDS ORDERED: ASPIRIN 81MG TABLET PO SCH (09:00)
[2019-11-13] MEDS ORDERED: FUROSEMIDE 20MG TABLET PO SCH (09:00)
[2019-11-13] MEDS ORDERED: THIAMINE HCL 100MG TABLET PO SCH (09:00)
[2019-11-13] MEDS ORDERED: CLOPIDOGREL 75MG TABLET PO SCH (09:00)
[2019-11-13] MEDS: ENOXAPARIN 30MG/0.3ML SYR SUBCUT SCH (10:03)
[2019-11-13] MEDS: FERROUS SULFATE 325MG TABLET PO SCH (10:04)
[2019-11-13] MEDS: POTASSIUM CHLORIDE 20MEQ TABLET SR PO SCH (10:04)
[2019-11-13] MEDS: ASPIRIN 81MG EC TABLET PO SCH (10:04)
[2019-11-13] MEDS: CARVEDILOL 12.5MG TABLET PO SCH (10:05)
[2019-11-13] MEDS ORDERED: HYDR-4005 MT (10:30)
[2019-11-13 12:00] VITALS: BP 130/70
[2019-11-13 12:50] VITALS: BP 129/69
== END 2019-11-13 15:15 | disposition home or self-care (01) | DRG 194 ==
LOC: ER 20:12 → 7WST 22:50 → EDBEDREQTM 22:59 → EDBEDREQ 22:59 → ENRESERV 11-12 02:17
PROVIDERS: ADMIT Internal Medicine Nephrology; ATTEND Internal Medicine Nephrology
DX: I11.0 Hypertensive heart disease with heart failure (principal); Z68.41 Body mass index [BMI] 40.0-44.9, adult; M94.0 Chondrocostal junction syndrome [Tietze]; I50.23 Acute on chronic systolic (congestive) heart failure; E66.9 Obesity, unspecified; I25.10 Atherosclerotic heart disease of native coronary artery without angina pectoris; J44.9 Chronic obstructive pulmonary disease, unspecified; E78.5 Hyperlipidemia, unspecified; E87.6 Hypokalemia; K21.9 Gastro-esophageal reflux disease without esophagitis; Z95.5 Presence of coronary angioplasty implant and graft; Z95.810 Presence of automatic (implantable) cardiac defibrillator; I25.5 Ischemic cardiomyopathy
CPT/HCPCS: 36415; 71045; 80048; 80053; 82550; 82553; 83735; 83880; 84100; 84484; 85025; 93005; 99285; J1650; J1885; J2270

== ENCOUNTER 2020-01-26 03:10 | Inpatient (IN) | payer MEDICAID ==
[~2020-01-26] VITALS: Ht 157.5 cm; Wt 134.7 kg
[2020-01-26 03:53] LABS: CHLORIDE 107 mEq/L (98-107)
[2020-01-26 04:35] LABS: BASOPHILS % 0.4 % (0.0-2.0); EOSINOPHILS % 1.8 % (0.0-5.0); HEMATOCRIT. 35.5 % (36.0-48.0); HEMOGLOBIN. 11.8 g/dL (12.0-16.0); MEAN CORPUSCULAR HEMOGLOBIN 27.4 pg (28.0-32.0); MEAN CORPUSCULAR VOLUME 82.3 fL (81.0-99.0); MEAN PLATELET VOLUME 9.1 fl (7.4-10.4); MONOCYTES % 9.6 % (2.0-8.0); NEUTROPHILS % 60.2 % (40.0-76.0); PLATELET 260 x1000/uL (130-400); RED BLOOD CELL COUNT 4.32 mill/uL (4.2-5.4)
[2020-01-26] MEDS ORDERED: ASPIRIN 81MG TABLET PO ONE (05:00)
[2020-01-26] MEDS ORDERED: VISCOUS LIDOCAINE 2% 15 ML UDC PO ONE (05:00)
[2020-01-26] MEDS ORDERED: MAGNESIUM/ALUMINUM HYDROXIDE/SIMETHICONE 30ML UDC PO ONE (05:00)
[2020-01-26 12:00] VITALS: BP 132/75
[2020-01-26] MEDS ORDERED: SIMV-46 MT (12:50)
[2020-01-26] MEDS ORDERED: POTA20TA82 PO (12:50)
[2020-01-26] MEDS ORDERED: FURO-151 PO (12:52)
[2020-01-26 16:00] VITALS: BP 122/60
[2020-01-26] MEDS ORDERED: LORAZEPAM 0.5MG TABLET PO PRN (16:45)
[2020-01-26] MEDS ORDERED: LORA-249 MT (17:05)
[2020-01-26] MEDS ORDERED: POTASSIUM CHLORIDE 20MEQ TABLET SR PO NR (17:07)
[2020-01-26 22:48] VITALS: BP 130/72
[2020-01-27] VITALS: BP 114/41
[2020-01-27 04:00] VITALS: BP 112/43
[2020-01-27 08:00] VITALS: BP 124/67
[2020-01-27 11:38] VITALS: BP 124/67
[2020-01-27 12:00] VITALS: BP 120/72
== END 2020-01-27 14:30 | disposition home or self-care (01) | DRG 243 ==
LOC: ER 03:20 → 6WST 05:26 → ENRESERV 08:02 → CANRESERV 09:51 → ENRESERV 09:51
PROVIDERS: ADMIT Internal Medicine; ATTEND Internal Medicine
DX: K21.9 Gastro-esophageal reflux disease without esophagitis (principal); I11.0 Hypertensive heart disease with heart failure; E66.01 Morbid (severe) obesity due to excess calories; I50.22 Chronic systolic (congestive) heart failure; Z68.43 Body mass index [BMI] 50.0-59.9, adult; F41.0 Panic disorder [episodic paroxysmal anxiety]; D64.9 Anemia, unspecified; D72.821 Monocytosis (symptomatic); E78.5 Hyperlipidemia, unspecified; E87.6 Hypokalemia; H81.10 Benign paroxysmal vertigo, unspecified ear; I25.10 Atherosclerotic heart disease of native coronary artery without angina pectoris; J44.9 Chronic obstructive pulmonary disease, unspecified; K57.90 Diverticulosis of intestine, part unspecified, without perforation or abscess without bleeding; Z95.5 Presence of coronary angioplasty implant and graft; Z95.810 Presence of automatic (implantable) cardiac defibrillator; Z88.6 Allergy status to analgesic agent; Z88.8 Allergy status to other drugs, medicaments and biological substances; Z79.1 Long term (current) use of non-steroidal anti-inflammatories (NSAID); Z79.899 Other long term (current) drug therapy
CPT/HCPCS: 36415; 71045; 80053; 83880; 84484; 85025; 85379; 93005; 99285

== ENCOUNTER 2020-02-02 22:22 | Inpatient (IN) | payer MEDICAID ==
[~2020-02-02] VITALS: Ht 322.6 cm; Wt 112.5 kg
[~2020-02-02 22:22] MED LIST changes: +FURO-151 PO; -FURO20TA4 PO; +LORA-249 MT; +POTA20TA82 PO; -SIMV-43 PO; +SIMV-46 MT
[2020-02-02] MEDS ORDERED: ONDANSETRON HCL 4MG/2ML INJ IV STA (22:51)
[2020-02-02] MEDS ORDERED: MORPHINE SULFATE 4 MG/ML CPJ (NOT FOR IM USE) IV STA (22:51)
[2020-02-02] MEDS ORDERED: NITROGLYCERIN OINT 1GM/INCH UDPKT TD ONE (23:00)
[2020-02-02 23:10] LABS: BASOPHILS % 0.5 % (0.0-2.0); EOSINOPHILS % 1.4 % (0.0-5.0); HEMATOCRIT. 36.5 % (36.0-48.0); HEMOGLOBIN. 11.9 g/dL (12.0-16.0); LYMPHOCYTES % 18.4 % (20.0-50.0); MEAN CORPUSCULAR HEMOGLOBIN 26.9 pg (28.0-32.0); MEAN CORPUSCULAR VOLUME 82.2 fL (81.0-99.0); MEAN PLATELET VOLUME 8.7 fl (7.4-10.4); MONOCYTES % 7.3 % (2.0-8.0); NEUTROPHILS % 72.4 % (40.0-76.0); PLATELET 269 x1000/uL (130-400); RED BLOOD CELL COUNT 4.44 mill/uL (4.2-5.4)
[2020-02-02 23:16] LABS: CHLORIDE 105 mEq/L (98-107)
[2020-02-03] MEDS ORDERED: ONDANSETRON HCL 4MG/2ML INJ IV PRN (09:45)
[2020-02-03] MEDS ORDERED: CLONIDINE 0.1MG TABLET PO PRN (09:45)
[2020-02-03] MEDS: MORPHINE SULFATE 2 MG/ML CPJ (NOT FOR IM USE) IV PRN ×3 (10:20→23:00)
[2020-02-03] MEDS: ENOXAPARIN 40MG/0.4ML SYR SUBCUT SCH (10:20)
[2020-02-03 10:58] LABS: PHOSPHORUS 3.7 mg/dL (2.5-4.9)
[2020-02-03] MEDS: LOSARTAN POTASSIUM 25 MG TABLET PO SCH (15:31)
[2020-02-03 15:57] VITALS: BP 111/61
[2020-02-03 16:41] VITALS: BP 128/78
[2020-02-03 20:00] VITALS: BP 131/75
[2020-02-03] MEDS ORDERED: ATORVASTATIN CALCIUM 20MG TABLET PO SCH (21:00)
[2020-02-03] MEDS: CARVEDILOL 6.25 MG TABLET PO SCH (21:26)
[2020-02-04] VITALS: BP 127/71
[2020-02-04 04:00] VITALS: BP 125/69
[2020-02-04 06:45] LABS: CHLORIDE 105 mEq/L (98-107)
[2020-02-04 06:52] LABS: BASOPHILS % 0.2 % (0.0-2.0); EOSINOPHILS % 1.2 % (0.0-5.0); HEMATOCRIT. 35.1 % (36.0-48.0); HEMOGLOBIN. 11.5 g/dL (12.0-16.0); LYMPHOCYTES % 16.4 % (20.0-50.0); MEAN CORPUSCULAR HEMOGLOBIN 27.1 pg (28.0-32.0); MEAN CORPUSCULAR VOLUME 82.9 fL (81.0-99.0); MEAN PLATELET VOLUME 9.1 fl (7.4-10.4); MONOCYTES % 8.7 % (2.0-8.0); NEUTROPHILS % 73.5 % (40.0-76.0); PLATELET 226 x1000/uL (130-400); RED BLOOD CELL COUNT 4.24 mill/uL (4.2-5.4); RED CELL DISTRIBUTION WIDTH 14.9 % (11.6-14.6)
[2020-02-04 06:59] LABS: LDL CHOLESTEROL 85 mg/dL (5-100)
[2020-02-04 07:00] LABS: HDL CHOLESTEROL 42 mg/dL (40-59)
[2020-02-04 08:04] VITALS: BP 119/73
[2020-02-04] MEDS ORDERED: ASPIRIN 81MG TABLET PO SCH (09:00)
[2020-02-04] MEDS: CARVEDILOL 6.25 MG TABLET PO SCH (09:11)
[2020-02-04] MEDS: ENOXAPARIN 40MG/0.4ML SYR SUBCUT SCH (09:11)
[2020-02-04] MEDS: LOSARTAN POTASSIUM 25 MG TABLET PO SCH (09:11)
[2020-02-04] MEDS: MORPHINE SULFATE 2 MG/ML CPJ (NOT FOR IM USE) IV PRN ×2 (09:48→15:47)
[2020-02-04 11:35] VITALS: BP 109/55
[2020-02-04] MEDS ORDERED: POTASSIUM CHLORIDE 20MEQ TABLET SR PO SCH (12:00)
[2020-02-04] MEDS ORDERED: CYCL5TAB MT (13:18)
[2020-02-04 15:53] VITALS: BP 115/70
[2020-02-04 18:46] VITALS: BP 115/70
== END 2020-02-04 20:25 | disposition home or self-care (01) | DRG 198 ==
LOC: ER 22:22 → 6WST 02-03 01:42 → EDBEDREQTM 02-03 01:50 → EDBEDREQ 02-03 01:50 → EDBEDREQDT 02-03 01:50 → ENRESERV 02-03 11:13
PROVIDERS: ADMIT Internal Medicine; ATTEND Internal Medicine
DX: R07.89 Other chest pain (principal); I25.10 Atherosclerotic heart disease of native coronary artery without angina pectoris; I11.0 Hypertensive heart disease with heart failure; I42.9 Cardiomyopathy, unspecified; I50.22 Chronic systolic (congestive) heart failure; E66.9 Obesity, unspecified; E78.5 Hyperlipidemia, unspecified; J44.9 Chronic obstructive pulmonary disease, unspecified; Z90.49 Acquired absence of other specified parts of digestive tract; Z95.5 Presence of coronary angioplasty implant and graft; Z88.8 Allergy status to other drugs, medicaments and biological substances; Z79.82 Long term (current) use of aspirin; Z79.899 Other long term (current) drug therapy; Z98.891 History of uterine scar from previous surgery; Z71.3 Dietary counseling and surveillance
CPT/HCPCS: 36415; 71045; 80053; 80061; 83735; 83880; 84100; 84443; 84484; 85025; 93005; 93970; 99285; J1650; J2270; J2405

== ENCOUNTER 2020-02-11 11:44 | Inpatient (IN) | payer MEDICAID ==
[~2020-02-11] VITALS: Ht 157.5 cm; Wt 128.4 kg
[~2020-02-11 11:44] MED LIST changes: +CYCL5TAB MT
[2020-02-11] MEDS ORDERED: ONDANSETRON HCL 4MG/2ML INJ IV STA (12:10)
[2020-02-11] MEDS ORDERED: MORPHINE SULFATE 4 MG/ML CPJ (NOT FOR IM USE) IV STA (12:10)
[2020-02-11] MEDS ORDERED: NITROGLYCERIN OINT 1GM/INCH UDPKT TD ONE (12:15)
[2020-02-11 12:48] LABS: BASOPHILS % 0.6 % (0.0-2.0); EOSINOPHILS % 5.9 % (0.0-5.0); HEMATOCRIT. 36.7 % (36.0-48.0); HEMOGLOBIN. 11.9 g/dL (12.0-16.0); LYMPHOCYTES % 23.1 % (20.0-50.0); MEAN CORPUSCULAR HEMOGLOBIN 26.6 pg (28.0-32.0); MEAN CORPUSCULAR VOLUME 82.1 fL (81.0-99.0); MEAN PLATELET VOLUME 8.8 fl (7.4-10.4); MONOCYTES % 8.9 % (2.0-8.0); NEUTROPHILS % 61.5 % (40.0-76.0); PLATELET 235 x1000/uL (130-400); RED BLOOD CELL COUNT 4.47 mill/uL (4.2-5.4); RED CELL DISTRIBUTION WIDTH 14.4 % (11.6-14.6)
[2020-02-11 12:55] LABS: CHLORIDE 107 mEq/L (98-107)
[2020-02-11] MEDS ORDERED: LORAZEPAM 2MG/ML CPJ ONE (13:22)
[2020-02-11 14:24] LABS: INR 1.2; PROTHROMBIN TIME 12.6 sec (9.6-11.0)
[2020-02-11] MEDS ORDERED: IPRATROPIUM/ALBUTEROL 0.5-3(2.5)MG/3ML NEB HHN PRN (15:45)
[2020-02-11] MEDS ORDERED: LORAZEPAM 2MG/ML CPJ IV PRN (15:45)
[2020-02-11] MEDS ORDERED: CLONIDINE 0.1MG TABLET PO PRN (15:45)
[2020-02-11] MEDS ORDERED: GUAIFENESIN 200MG/10ML SUGAR FREE UDC PO PRN (15:45)
[2020-02-11] MEDS ORDERED: MAGNESIUM/ALUMINUM HYDROXIDE/SIMETHICONE 30ML UDC PO PRN (15:45)
[2020-02-11] MEDS ORDERED: ONDANSETRON HCL 4MG/2ML INJ IV PRN (15:45)
[2020-02-11] MEDS ORDERED: DOCUSATE SODIUM 100MG CAPSULE PO PRN (15:45)
[2020-02-11] MEDS ORDERED: ENOXAPARIN 40MG/0.4ML SYR SUBCUT SCH (15:45)
[2020-02-11] MEDS ORDERED: HYDRALAZINE 20MG/ML VIAL IV PRN (15:45)
[2020-02-11] MEDS ORDERED: DIPHENHYDRAMINE 50MG/ML VIAL IV PRN (15:45)
[2020-02-11] MEDS: MORPHINE SULFATE 2 MG/ML CPJ (NOT FOR IM USE) IV PRN ×2 (17:50→23:02)
[2020-02-11 21:50] VITALS: BP 127/88
[2020-02-11 22:00] VITALS: BP 128/64
[2020-02-11] MEDS: SODIUM CHLORIDE 0.9% INJ 3ML FLUSH IVF SCH (22:00)
[2020-02-11] MEDS: ENOXAPARIN 30MG/0.3ML SYR SUBCUT SCH (23:10)
[2020-02-12] VITALS (11 sets, daily range): BP systolic 118–135; BP diastolic 55–82
[2020-02-12 00:38] LABS: CREATINE KINASE 51 IU/L (26-192)
[2020-02-12 00:39] LABS: CREATINE KINASE MB FRACTION < 1.0 ng/mL (0.5-3.6)
[2020-02-12] MEDS: MORPHINE SULFATE 2 MG/ML CPJ (NOT FOR IM USE) IV PRN ×3 (04:15→14:37)
[2020-02-12] MEDS: SODIUM CHLORIDE 0.9% INJ 3ML FLUSH IVF SCH ×2 (06:54→14:37)
[2020-02-12 06:56] LABS: BASOPHILS % 0.4 % (0.0-2.0); EOSINOPHILS % 5.5 % (0.0-5.0); HEMATOCRIT. 34.9 % (36.0-48.0); HEMOGLOBIN. 11.4 g/dL (12.0-16.0); LYMPHOCYTES % 22.2 % (20.0-50.0); MEAN CORPUSCULAR HEMOGLOBIN 26.6 pg (28.0-32.0); MEAN CORPUSCULAR VOLUME 81.3 fL (81.0-99.0); MEAN PLATELET VOLUME 9.2 fl (7.4-10.4); MONOCYTES % 9.1 % (2.0-8.0); NEUTROPHILS % 62.8 % (40.0-76.0); PLATELET 223 x1000/uL (130-400); RED BLOOD CELL COUNT 4.29 mill/uL (4.2-5.4); RED CELL DISTRIBUTION WIDTH 14.7 % (11.6-14.6)
[2020-02-12 07:02] LABS: CHLORIDE 107 mEq/L (98-107)
[2020-02-12 07:15] LABS: CREATINE KINASE 47 IU/L (26-192)
[2020-02-12 07:19] LABS: CREATINE KINASE MB FRACTION < 1.0 ng/mL (0.5-3.6)
[2020-02-12] MEDS: ENOXAPARIN 30MG/0.3ML SYR SUBCUT SCH (09:03)
== END 2020-02-12 20:44 | disposition home or self-care (01) | DRG 198 ==
LOC: ER 11:44 → 3WST 15:14 → EDBEDREQ 15:18 → ENRESERV 16:13
PROVIDERS: ADMIT Internal Medicine; ATTEND Internal Medicine
DX: R07.89 Other chest pain (principal); I25.10 Atherosclerotic heart disease of native coronary artery without angina pectoris; I42.9 Cardiomyopathy, unspecified; E46 Unspecified protein-calorie malnutrition; I11.0 Hypertensive heart disease with heart failure; I50.9 Heart failure, unspecified; Z68.43 Body mass index [BMI] 50.0-59.9, adult; J44.9 Chronic obstructive pulmonary disease, unspecified; Z95.5 Presence of coronary angioplasty implant and graft; Z95.810 Presence of automatic (implantable) cardiac defibrillator; Z88.8 Allergy status to other drugs, medicaments and biological substances; Z79.82 Long term (current) use of aspirin; Z79.899 Other long term (current) drug therapy; Z90.49 Acquired absence of other specified parts of digestive tract; Z98.891 History of uterine scar from previous surgery
CPT/HCPCS: 36415; 71045; 80053; 82550; 82553; 83880; 84484; 85025; 93005; 93970; 96374; 99285; J1650; J2060; J2270; J2405

== ENCOUNTER 2020-03-01 21:23 | Inpatient (IN) | payer MEDICAID ==
[~2020-03-01] VITALS: Ht 157.5 cm; Wt 138.4 kg
[2020-03-01] MEDS ORDERED: FUROSEMIDE 20MG/2ML VIAL IVP ONE (22:15)
[2020-03-01 22:42] LABS: BASOPHILS % 0.5 % (0.0-2.0); EOSINOPHILS % 1.2 % (0.0-5.0); HEMOGLOBIN. 11.7 g/dL (12.0-16.0); LYMPHOCYTES % 23.1 % (20.0-50.0); MEAN CORPUSCULAR HEMOGLOBIN 27.3 pg (28.0-32.0); MEAN CORPUSCULAR VOLUME 81.4 fL (81.0-99.0); MEAN PLATELET VOLUME 8.8 fl (7.4-10.4); MONOCYTES % 8.4 % (2.0-8.0); NEUTROPHILS % 66.8 % (40.0-76.0); PLATELET 251 x1000/uL (130-400); RED CELL DISTRIBUTION WIDTH 15.3 % (11.6-14.6)
[2020-03-01 22:49] LABS: CHLORIDE 105 mEq/L (98-107)
[2020-03-02] MEDS ORDERED: POTASSIUM CHLORIDE 20MEQ TABLET SR PO ONE (00:45)
[2020-03-02] MEDS ORDERED: MORPHINE SULFATE 4 MG/ML CPJ (NOT FOR IM USE) IV ONE (01:45)
[2020-03-02] MEDS ORDERED: LORAZEPAM 0.5MG TABLET PO PRN (11:45)
[2020-03-02] MEDS ORDERED: ACETAMINOPHEN 325MG TABLET PO PRN (12:00)
[2020-03-02] MEDS ORDERED: ONDANSETRON HCL 4MG/2ML INJ IV PRN (12:00)
[2020-03-02] MEDS: HYDROCODONE/APAP 7.5/325MG 1 TAB TABLET PO PRN ×2 (12:53→19:52)
[2020-03-02] MEDS: ENOXAPARIN 40MG/0.4ML SYR SUBCUT SCH ×2 (14:22→22:55)
[2020-03-02 15:00] LABS: CREATINE KINASE 33 IU/L (26-192)
[2020-03-02 15:03] LABS: CREATINE KINASE MB FRACTION < 1.0 ng/mL (0.5-3.6)
[2020-03-02] MEDS ORDERED: MORPHINE SULFATE 2 MG/ML CPJ (NOT FOR IM USE) IV PRN (16:15)
[2020-03-02] MEDS: FUROSEMIDE 40MG TABLET PO SCH (18:11)
[2020-03-02 21:00] VITALS: BP 120/89
[2020-03-02] MEDS: CARVEDILOL 12.5MG TABLET PO SCH (22:55)
[2020-03-03 00:10] LABS: CREATINE KINASE 40 IU/L (26-192)
[2020-03-03 00:12] LABS: CREATINE KINASE MB FRACTION < 1.0 ng/mL (0.5-3.6)
[2020-03-03 00:42] VITALS: BP 103/53
[2020-03-03 04:43] VITALS: BP 114/70
[2020-03-03 06:31] LABS: CHLORIDE 103 mEq/L (98-107)
[2020-03-03 06:32] LABS: BASOPHILS % 0.5 % (0.0-2.0); EOSINOPHILS % 2.5 % (0.0-5.0); HEMATOCRIT. 34.3 % (36.0-48.0); HEMOGLOBIN. 11.2 g/dL (12.0-16.0); LYMPHOCYTES % 19.7 % (20.0-50.0); MEAN CORPUSCULAR HEMOGLOBIN 26.7 pg (28.0-32.0); NEUTROPHILS % 69.3 % (40.0-76.0); PLATELET 234 x1000/uL (130-400); RED BLOOD CELL COUNT 4.18 mill/uL (4.2-5.4); RED CELL DISTRIBUTION WIDTH 15.2 % (11.6-14.6)
[2020-03-03] MEDS: FUROSEMIDE 40MG TABLET PO SCH ×2 (07:05→17:38)
[2020-03-03] MEDS: HYDROCODONE/APAP 7.5/325MG 1 TAB TABLET PO PRN ×3 (07:32→19:34)
[2020-03-03 08:00] VITALS: BP 116/80
[2020-03-03] MEDS: CARVEDILOL 12.5MG TABLET PO SCH ×2 (08:34→21:32)
[2020-03-03] MEDS: CLOPIDOGREL 75MG TABLET PO SCH (08:34)
[2020-03-03] MEDS: ASPIRIN 81MG TABLET PO SCH (08:34)
[2020-03-03] MEDS: ENOXAPARIN 40MG/0.4ML SYR SUBCUT SCH ×2 (08:35→21:28)
[2020-03-03 12:14] VITALS: BP 100/59
[2020-03-03 16:08] VITALS: BP 105/51
[2020-03-03 20:00] VITALS: BP 107/63
[2020-03-04] VITALS: BP 102/60
[2020-03-04 04:48] VITALS: BP 100/49
[2020-03-04] MEDS: FUROSEMIDE 40MG TABLET PO SCH (05:41)
[2020-03-04 08:00] VITALS: BP 109/63
[2020-03-04] MEDS: CARVEDILOL 12.5MG TABLET PO SCH (09:00)
[2020-03-04] MEDS: ASPIRIN 81MG TABLET PO SCH (09:01)
[2020-03-04] MEDS: CLOPIDOGREL 75MG TABLET PO SCH (09:01)
[2020-03-04] MEDS: ENOXAPARIN 40MG/0.4ML SYR SUBCUT SCH (09:02)
[2020-03-04 09:27] VITALS: BP 110/60
[2020-03-04] MEDS: HYDROCODONE/APAP 7.5/325MG 1 TAB TABLET PO PRN (09:54)
[2020-03-04 12:00] VITALS: BP 105/64
[2020-05-05] MEDS ORDERED: HYDR-4005 MT (16:15)
[2020-05-26] MEDS ORDERED: HYDR-4001 MT (14:08)
[2020-05-26] MEDS ORDERED: HYDR-4005 MT (14:08)
== END 2020-03-04 14:10 | disposition home or self-care (01) | DRG 198 ==
LOC: ER 21:23 → 6WST 03-02 00:51 → EDBEDREQ 03-02 00:55 → EDBEDREQTM 03-02 00:55 → EDBEDREQDT 03-02 00:55 → ENRESERV 03-02 19:58
PROVIDERS: ADMIT Internal Medicine; ATTEND Internal Medicine
DX: I25.10 Atherosclerotic heart disease of native coronary artery without angina pectoris (principal); I11.0 Hypertensive heart disease with heart failure; J44.9 Chronic obstructive pulmonary disease, unspecified; E11.9 Type 2 diabetes mellitus without complications; E78.00 Pure hypercholesterolemia, unspecified; I25.5 Ischemic cardiomyopathy; Z95.5 Presence of coronary angioplasty implant and graft; Z95.810 Presence of automatic (implantable) cardiac defibrillator; Z88.8 Allergy status to other drugs, medicaments and biological substances; Z79.82 Long term (current) use of aspirin; Z79.899 Other long term (current) drug therapy; I50.23 Acute on chronic systolic (congestive) heart failure
CPT/HCPCS: 36415; 71045; 80048; 80053; 82550; 82553; 83880; 84132; 84484; 85025; 93005; 93970; 99285; J1650; J1940; J2270

== ENCOUNTER 2020-07-09 20:28 | Inpatient (IN) | payer MEDICAID ==
[~2020-07-09] VITALS: Ht 157.5 cm; Wt 124.7 kg
[~2020-07-09 20:28] MED LIST changes: -HYDR-4005 MT
[2020-07-09] MEDS ORDERED: ONDANSETRON HCL 4MG/2ML INJ IV STA (21:56)
[2020-07-09] MEDS ORDERED: MORPHINE SULFATE 4 MG/ML CPJ (NOT FOR IM USE) IV STA (21:56)
[2020-07-09 22:43] LABS: BASOPHILS % 0.9 % (0.0-2.0); EOSINOPHILS % 1.4 % (0.0-5.0); HEMATOCRIT. 37.1 % (36.0-48.0); LYMPHOCYTES % 25.7 % (20.0-50.0); MEAN CORPUSCULAR HEMOGLOBIN 26.7 pg (28.0-32.0); MEAN CORPUSCULAR VOLUME 82.2 fL (81.0-99.0); MEAN PLATELET VOLUME 9.3 fl (7.4-10.4); MONOCYTES % 9.3 % (2.0-8.0); NEUTROPHILS % 62.7 % (40.0-76.0); PLATELET 261 x1000/uL (130-400); RED BLOOD CELL COUNT 4.51 mill/uL (4.2-5.4); RED CELL DISTRIBUTION WIDTH 15.4 % (11.6-14.6)
[2020-07-09 22:48] LABS: CHLORIDE 106 mEq/L (98-107)
[2020-07-09 22:53] LABS: D-DIMER 0.25 mg/L FEU (<0.50); INR 1.1; PARTIAL THROMBOPLASTIN TIME 26.9 sec (23.4-31.0)
[2020-07-09] MEDS ORDERED: POTASSIUM CHLORIDE 20MEQ TABLET SR PO ONE (23:15)
[2020-07-10] MEDS: MORPHINE SULFATE 2 MG/ML CPJ (NOT FOR IM USE) IV PRN ×2 (04:01→08:58)
[2020-07-10 05:00] VITALS: BP 145/78
[2020-07-10] MEDS ORDERED: POTA-79 PO (05:37)
[2020-07-10 08:00] VITALS: BP 128/79
[2020-07-10] MEDS ORDERED: CLOPIDOGREL 75MG TABLET PO SCH (09:00)
[2020-07-10] MEDS ORDERED: CARVEDILOL 12.5MG TABLET PO SCH (09:00)
[2020-07-10] MEDS ORDERED: POTASSIUM CHLORIDE 20MEQ TABLET SR PO SCH (09:00)
[2020-07-10] MEDS ORDERED: ENOXAPARIN 40MG/0.4ML SYR SUBCUT SCH (09:00)
[2020-07-10] MEDS ORDERED: NON FORMULARY PATIENT HOME MED PO SCH (09:00)
[2020-07-10] MEDS ORDERED: FUROSEMIDE 40MG TABLET PO SCH (09:00)
[2020-07-10 09:09] LABS: BASOPHILS % 0.3 % (0.0-2.0); EOSINOPHILS % 1.3 % (0.0-5.0); HEMATOCRIT. 38.3 % (36.0-48.0); HEMOGLOBIN. 12.3 g/dL (12.0-16.0); LYMPHOCYTES % 25.1 % (20.0-50.0); MEAN CORPUSCULAR HEMOGLOBIN 26.5 pg (28.0-32.0); MEAN CORPUSCULAR VOLUME 82.6 fL (81.0-99.0); MONOCYTES % 8.7 % (2.0-8.0); NEUTROPHILS % 64.6 % (40.0-76.0); PLATELET 248 x1000/uL (130-400); RED BLOOD CELL COUNT 4.63 mill/uL (4.2-5.4); RED CELL DISTRIBUTION WIDTH 15.3 % (11.6-14.6)
[2020-07-10 09:20] LABS: CHLORIDE 107 mEq/L (98-107)
[2020-07-10] MEDS ORDERED: TRAMADOL 50MG TABLET PO PRN (11:45)
[2020-07-10 12:00] VITALS: BP 108/60
[2020-07-10] MEDS ORDERED: TRAM50TA MT (14:29)
[2020-07-10 16:00] VITALS: BP 110/70
[2020-07-10] MEDS ORDERED: ATORVASTATIN CALCIUM 20MG TABLET PO SCH (21:00)
== END 2020-07-10 17:30 | disposition home or self-care (01) | DRG 203 ==
LOC: ER 20:28 → 5WST 07-10 00:39 → ENRESERV 07-10 04:12
PROVIDERS: ADMIT Internal Medicine; ATTEND Internal Medicine
DX: M94.0 Chondrocostal junction syndrome [Tietze] (principal); E11.9 Type 2 diabetes mellitus without complications; E44.1 Mild protein-calorie malnutrition; E66.9 Obesity, unspecified; E78.00 Pure hypercholesterolemia, unspecified; E78.5 Hyperlipidemia, unspecified; E87.6 Hypokalemia; I11.0 Hypertensive heart disease with heart failure; I25.10 Atherosclerotic heart disease of native coronary artery without angina pectoris; I42.9 Cardiomyopathy, unspecified; I50.23 Acute on chronic systolic (congestive) heart failure; Z95.5 Presence of coronary angioplasty implant and graft; Z95.810 Presence of automatic (implantable) cardiac defibrillator; Z88.8 Allergy status to other drugs, medicaments and biological substances; Z79.82 Long term (current) use of aspirin; Z79.899 Other long term (current) drug therapy; I25.2 Old myocardial infarction; Z71.3 Dietary counseling and surveillance; Z68.43 Body mass index [BMI] 50.0-59.9, adult
CPT/HCPCS: 36415; 71045; 80048; 80053; 83036; 83880; 84484; 85025; 85379; 93005; 99285; J1650; J2270; J2405

== ENCOUNTER 2020-11-28 19:07 | Inpatient (IN) | payer MEDICAID ==
[~2020-11-28] VITALS: Ht 157.5 cm; Wt 139.3 kg
[~2020-11-28 19:07] MED LIST changes: -ASPI-1160 PO; +CLOP-31 PO; -CLOP75TA4 PO; -CYCL5TAB MT; -LORA-249 MT; -MECL-159 PO; +POTA-79 PO; -POTA20TA82 PO
[2020-11-28] MEDS ORDERED: ASPIRIN 325MG EC TABLET PO ONE (19:45)
[2020-11-28] MEDS: NITROGLYCERIN 0.4MG TABLET SL SL PRN ×3 (20:14→20:25)
[2020-11-28 20:19] LABS: BASOPHILS % 1.2 % (0.0-2.0); EOSINOPHILS % 1.6 % (0.0-5.0); HEMATOCRIT. 37.7 % (36.0-48.0); HEMOGLOBIN. 12.5 g/dL (12.0-16.0); LYMPHOCYTES % 22.8 % (20.0-50.0); MEAN CORPUSCULAR VOLUME 81.1 fL (81.0-99.0); MEAN PLATELET VOLUME 8.5 fl (7.4-10.4); MONOCYTES % 9.9 % (2.0-8.0); NEUTROPHILS % 64.5 % (40.0-76.0); PLATELET 296 x1000/uL (130-400); RED BLOOD CELL COUNT 4.64 mill/uL (4.2-5.4); RED CELL DISTRIBUTION WIDTH 15.3 % (11.6-14.6)
[2020-11-28 20:21] LABS: CHLORIDE 101 mEq/L (98-107)
[2020-11-28 20:26] LABS: D-DIMER 0.31 mg/L FEU (<0.50); INR 1.1
[2020-11-28] MEDS ORDERED: MORPHINE SULFATE 4 MG/ML CPJ (NOT FOR IM USE) IV ONE (20:45)
[2020-11-29 01:00] VITALS: BP 116/71
[2020-11-29] MEDS ORDERED: POTA20TA82 MT (02:52)
[2020-11-29] MEDS ORDERED: MORPHINE SULFATE 2 MG/ML CPJ (NOT FOR IM USE) IV PRN (03:00)
[2020-11-29 04:00] VITALS: BP 93/45
[2020-11-29] MEDS ORDERED: ENOXAPARIN 40MG/0.4ML SYR SUBCUT SCH (04:00)
[2020-11-29] MEDS: FUROSEMIDE 40MG TABLET PO SCH ×2 (06:24→17:10)
[2020-11-29] MEDS: ENOXAPARIN 40MG/0.4ML SYR SUBCUT SCH ×2 (06:24→17:11)
[2020-11-29 06:27] LABS: BASOPHILS % 0.4 % (0.0-2.0); CHLORIDE 101 mEq/L (98-107); EOSINOPHILS % 1.8 % (0.0-5.0); HEMATOCRIT. 38.3 % (36.0-48.0); HEMOGLOBIN. 12.5 g/dL (12.0-16.0); LYMPHOCYTES % 21.8 % (20.0-50.0); MEAN CORPUSCULAR HEMOGLOBIN 26.6 pg (28.0-32.0); MEAN CORPUSCULAR VOLUME 81.3 fL (81.0-99.0); MEAN PLATELET VOLUME 8.3 fl (7.4-10.4); MONOCYTES % 10.6 % (2.0-8.0); NEUTROPHILS % 65.4 % (40.0-76.0); PLATELET 304 x1000/uL (130-400); RED BLOOD CELL COUNT 4.71 mill/uL (4.2-5.4); RED CELL DISTRIBUTION WIDTH 15.8 % (11.6-14.6)
[2020-11-29 07:52] VITALS: BP 124/54
[2020-11-29] MEDS: CARVEDILOL 12.5MG TABLET PO SCH ×2 (08:40→20:23)
[2020-11-29 11:40] VITALS: BP 126/60
[2020-11-29] MEDS: CLOPIDOGREL 75MG TABLET PO SCH (14:46)
[2020-11-29] MEDS: TRAMADOL 50MG TABLET PO PRN ×2 (14:47→21:03)
[2020-11-29 15:54] VITALS: BP 116/54
[2020-11-29] MEDS: POTASSIUM CHLORIDE 20MEQ TABLET SR PO SCH (17:10)
[2020-11-29 20:00] VITALS: BP 128/73
[2020-11-29] MEDS: ATORVASTATIN CALCIUM 40MG TABLET PO SCH (20:23)
[2020-11-29] MEDS ORDERED: CARVEDILOL 12.5MG TABLET PO SCH (21:00)
[2020-11-30] VITALS: BP 118/74
[2020-11-30] MEDS: TRAMADOL 50MG TABLET PO PRN ×3 (03:42→20:56)
[2020-11-30 04:00] VITALS: BP 121/64
[2020-11-30] MEDS: ENOXAPARIN 40MG/0.4ML SYR SUBCUT SCH ×2 (05:45→17:23)
[2020-11-30 06:01] LABS: CHLORIDE 100 mEq/L (98-107)
[2020-11-30] MEDS: FUROSEMIDE 40MG TABLET PO SCH ×2 (06:10→17:22)
[2020-11-30 06:19] LABS: BASOPHILS % 0.3 % (0.0-2.0); HEMATOCRIT. 39.2 % (36.0-48.0); HEMOGLOBIN. 12.6 g/dL (12.0-16.0); LYMPHOCYTES % 34.1 % (20.0-50.0); MEAN CORPUSCULAR HEMOGLOBIN 26.3 pg (28.0-32.0); MEAN CORPUSCULAR VOLUME 81.9 fL (81.0-99.0); MEAN PLATELET VOLUME 8.9 fl (7.4-10.4); MONOCYTES % 9.6 % (2.0-8.0); PLATELET 297 x1000/uL (130-400); RED BLOOD CELL COUNT 4.79 mill/uL (4.2-5.4); RED CELL DISTRIBUTION WIDTH 15.6 % (11.6-14.6)
[2020-11-30 08:00] VITALS: BP 118/66
[2020-11-30] MEDS: LOSARTAN POTASSIUM 25 MG TABLET PO SCH (08:25)
[2020-11-30] MEDS: CARVEDILOL 12.5MG TABLET PO SCH ×2 (08:25→20:53)
[2020-11-30] MEDS: POTASSIUM CHLORIDE 20MEQ TABLET SR PO SCH ×2 (08:25→17:25)
[2020-11-30] MEDS: CLOPIDOGREL 75MG TABLET PO SCH (08:25)
[2020-11-30 12:00] VITALS: BP 106/66
[2020-11-30 16:00] VITALS: BP 137/74
[2020-11-30 20:00] VITALS: BP 132/64
[2020-11-30] MEDS: ATORVASTATIN CALCIUM 40MG TABLET PO SCH (20:53)
[2020-12-01] VITALS: BP 124/65
[2020-12-01 04:00] VITALS: BP 118/55
[2020-12-01] MEDS: ENOXAPARIN 40MG/0.4ML SYR SUBCUT SCH (05:55)
[2020-12-01] MEDS: TRAMADOL 50MG TABLET PO PRN ×2 (05:56→12:13)
[2020-12-01] MEDS: FUROSEMIDE 40MG TABLET PO SCH (06:43)
[2020-12-01] MEDS: LOSARTAN POTASSIUM 25 MG TABLET PO SCH (09:53)
[2020-12-01] MEDS: CLOPIDOGREL 75MG TABLET PO SCH (09:53)
[2020-12-01] MEDS: CARVEDILOL 12.5MG TABLET PO SCH (09:53)
[2020-12-01] MEDS: POTASSIUM CHLORIDE 20MEQ TABLET SR PO SCH (09:54)
[2020-12-01] MEDS ORDERED: LOSA25TA3 PO (11:17)
[2020-12-01 12:52] VITALS: BP 112/65
== END 2020-12-01 16:38 | disposition home or self-care (01) | DRG 203 ==
LOC: ER 19:07 → 6WST 23:37 → ENRESERV 11-29 00:07
PROVIDERS: ADMIT Internal Medicine; ATTEND Internal Medicine
DX: M94.0 Chondrocostal junction syndrome [Tietze] (principal); I11.0 Hypertensive heart disease with heart failure; I42.9 Cardiomyopathy, unspecified; I50.22 Chronic systolic (congestive) heart failure; I25.10 Atherosclerotic heart disease of native coronary artery without angina pectoris; E78.5 Hyperlipidemia, unspecified; E78.00 Pure hypercholesterolemia, unspecified; E66.9 Obesity, unspecified; E11.9 Type 2 diabetes mellitus without complications; G89.29 Other chronic pain; Z95.5 Presence of coronary angioplasty implant and graft; Z95.810 Presence of automatic (implantable) cardiac defibrillator; Z68.43 Body mass index [BMI] 50.0-59.9, adult; Z88.6 Allergy status to analgesic agent; Z88.8 Allergy status to other drugs, medicaments and biological substances; Z79.899 Other long term (current) drug therapy
CPT/HCPCS: 36415; 71045; 80048; 80053; 83880; 84484; 85025; 85379; 93005; 93306; 93970; 99285; J1650; J2270

== ENCOUNTER 2020-12-15 23:00 | Inpatient (IN) | payer MEDICAID ==
[~2020-12-15] VITALS: Ht 157.5 cm; Wt 114.1 kg
[~2020-12-15 23:00] MED LIST changes: +LOSA25TA3 PO; -POTA-79 PO; +POTA20TA82 MT
[2020-12-15] MEDS ORDERED: ONDANSETRON HCL 4MG/2ML INJ IV STA (23:34)
[2020-12-15] MEDS ORDERED: MORPHINE SULFATE 4 MG/ML CPJ (NOT FOR IM USE) IV STA (23:34)
[2020-12-15] MEDS ORDERED: FUROSEMIDE 20MG/2ML VIAL IVP ONE (23:45)
[2020-12-16 00:42] LABS: BASOPHILS % 0.6 % (0.0-2.0); EOSINOPHILS % 0.2 % (0.0-5.0); HEMATOCRIT. 38.4 % (36.0-48.0); HEMOGLOBIN. 12.5 g/dL (12.0-16.0); LYMPHOCYTES % 20.7 % (20.0-50.0); MEAN CORPUSCULAR HEMOGLOBIN 26.7 pg (28.0-32.0); MEAN CORPUSCULAR VOLUME 82.1 fL (81.0-99.0); MEAN PLATELET VOLUME 8.5 fl (7.4-10.4); NEUTROPHILS % 70.5 % (40.0-76.0); PLATELET 312 x1000/uL (130-400); RED BLOOD CELL COUNT 4.67 mill/uL (4.2-5.4); RED CELL DISTRIBUTION WIDTH 15.3 % (11.6-14.6)
[2020-12-16 00:46] LABS: CHLORIDE 108 mEq/L (98-107)
[2020-12-16] MEDS ORDERED: MORPHINE SULFATE 2 MG/ML CPJ (NOT FOR IM USE) IV PRN (06:45)
[2020-12-16 09:30] VITALS: BP 127/71
[2020-12-16] MEDS ORDERED: ONDANSETRON HCL 4MG/2ML INJ IV PRN (10:00)
[2020-12-16] MEDS: TRAMADOL 50MG TABLET PO PRN ×2 (11:44→17:47)
[2020-12-16 12:00] VITALS: BP 125/68
[2020-12-16] MEDS: ENOXAPARIN 30MG/0.3ML SYR SUBCUT SCH (12:17)
[2020-12-16 16:00] VITALS: BP 115/60
[2020-12-16 20:00] VITALS: BP 125/77
[2020-12-17] VITALS: BP 116/62
[2020-12-17] MEDS: ENOXAPARIN 30MG/0.3ML SYR SUBCUT SCH (01:19)
[2020-12-17] MEDS: TRAMADOL 50MG TABLET PO PRN ×2 (01:25→08:32)
[2020-12-17 04:00] VITALS: BP 101/53
[2020-12-17 07:53] VITALS: BP 115/70
[2020-12-17] MEDS ORDERED: FUROSEMIDE 40MG TABLET PO SCH (09:00)
[2020-12-17] MEDS ORDERED: ASPIRIN 81MG TABLET PO SCH (09:00)
[2020-12-17 10:24] VITALS: BP 124/70
== END 2020-12-17 12:19 | disposition home or self-care (01) | DRG 203 ==
LOC: ER 23:00 → 6WST 12-16 00:34 → EDBEDREQDT 12-16 00:36 → EDBEDREQTM 12-16 00:36 → EDBEDREQ 12-16 00:36 → ENRESERV 12-16 07:40
PROVIDERS: ADMIT Internal Medicine; ATTEND Internal Medicine
DX: M94.0 Chondrocostal junction syndrome [Tietze] (principal); I50.23 Acute on chronic systolic (congestive) heart failure; I42.9 Cardiomyopathy, unspecified; R65.10 Systemic inflammatory response syndrome (SIRS) of non-infectious origin without acute organ dysfunction; E87.8 Other disorders of electrolyte and fluid balance, not elsewhere classified; Z68.42 Body mass index [BMI] 45.0-49.9, adult; I11.0 Hypertensive heart disease with heart failure; E11.9 Type 2 diabetes mellitus without complications; E66.9 Obesity, unspecified; E78.5 Hyperlipidemia, unspecified; J44.9 Chronic obstructive pulmonary disease, unspecified; Z82.49 Family history of ischemic heart disease and other diseases of the circulatory system; Z95.810 Presence of automatic (implantable) cardiac defibrillator; Z90.49 Acquired absence of other specified parts of digestive tract; Z88.8 Allergy status to other drugs, medicaments and biological substances; Z79.899 Other long term (current) drug therapy; Z71.3 Dietary counseling and surveillance
CPT/HCPCS: 36415; 71045; 80053; 82962; 83880; 84484; 85025; 93005; 99291; J1650; J1940; J2270; J2405

== ENCOUNTER 2021-01-02 12:34 | Emergency (ER) | payer MEDICAID ==
[~2021-01-02] VITALS: Ht 157.5 cm; Wt 122.0 kg
[2021-01-02] MEDS ORDERED: ASPIRIN 81MG TABLET PO ONE (13:00)
[2021-01-02 13:17] LABS: BASOPHILS % 0.4 % (0.0-2.0); HEMATOCRIT. 38.6 % (36.0-48.0); HEMOGLOBIN. 12.4 g/dL (12.0-16.0); LYMPHOCYTES % 19.8 % (20.0-50.0); MEAN CORPUSCULAR HEMOGLOBIN 26.7 pg (28.0-32.0); MEAN CORPUSCULAR VOLUME 83.5 fL (81.0-99.0); MEAN PLATELET VOLUME 8.4 fl (7.4-10.4); NEUTROPHILS % 70.8 % (40.0-76.0); PLATELET 259 x1000/uL (130-400); RED BLOOD CELL COUNT 4.62 mill/uL (4.2-5.4); RED CELL DISTRIBUTION WIDTH 15.1 % (11.6-14.6)
[2021-01-02 13:25] LABS: CHLORIDE 104 mEq/L (98-107)
[2021-01-02] MEDS ORDERED: TRAMADOL 50MG TABLET PO ONE (14:00)
[2021-01-02] MEDS ORDERED: TRAM50TA3 MT (17:00)
[2021-01-02 17:55] VITALS: BP 150/78
== END 2021-01-02 17:57 | disposition home or self-care (01) ==
LOC: ER 12:34
DX: R07.9 Chest pain, unspecified (principal); I11.0 Hypertensive heart disease with heart failure; I50.9 Heart failure, unspecified; E11.9 Type 2 diabetes mellitus without complications; J44.9 Chronic obstructive pulmonary disease, unspecified; Z88.6 Allergy status to analgesic agent; Z90.49 Acquired absence of other specified parts of digestive tract
CPT/HCPCS: 36415; 71045; 80053; 83690; 83735; 83880; 84484; 85025; 85379; 99285; Z7610

== ENCOUNTER 2021-04-14 22:22 | Inpatient (IN) | payer MEDICAID ==
[~2021-04-14] VITALS: Ht 160 cm; Wt 113.9 kg
[~2021-04-14 22:22] MED LIST changes: -CLOP-31 PO; +CLOP75TA4 PO; +TRAM50TA3 MT
[2021-04-14 23:58] LABS: BASOPHILS % 0.9 % (0.0-2.0); EOSINOPHILS % 2.8 % (0.0-5.0); HEMOGLOBIN. 12.1 g/dL (12.0-16.0); LYMPHOCYTES % 19.1 % (20.0-50.0); MEAN CORPUSCULAR HEMOGLOBIN 26.3 pg (28.0-32.0); MEAN CORPUSCULAR VOLUME 80.3 fL (81.0-99.0); MEAN PLATELET VOLUME 8.4 fl (7.4-10.4); MONOCYTES % 7.8 % (2.0-8.0); NEUTROPHILS % 69.4 % (40.0-76.0); PLATELET 304 x1000/uL (130-400); RED BLOOD CELL COUNT 4.61 mill/uL (4.2-5.4); RED CELL DISTRIBUTION WIDTH 15.2 % (11.6-14.6)
[2021-04-15 00:05] LABS: CHLORIDE 109 mEq/L (98-107)
[2021-04-15] MEDS: SODIUM CHLORIDE 0.9% INJ 3ML FLUSH IVF SCH ×2 (03:50→14:25)
[2021-04-15] MEDS ORDERED: DIPHENHYDRAMINE 50MG/ML VIAL IV PRN (08:45)
[2021-04-15] MEDS ORDERED: ENOXAPARIN 40MG/0.4ML SYR SUBCUT SCH (08:45)
[2021-04-15] MEDS ORDERED: ONDANSETRON HCL 4MG/2ML INJ IV PRN (08:45)
[2021-04-15] MEDS ORDERED: HYDRALAZINE 20MG/ML VIAL IV PRN (08:45)
[2021-04-15] MEDS ORDERED: IPRATROPIUM/ALBUTEROL 0.5-3(2.5)MG/3ML NEB HHN PRN (08:45)
[2021-04-15] MEDS ORDERED: CLONIDINE 0.1MG TABLET PO PRN (08:45)
[2021-04-15] MEDS ORDERED: MAGNESIUM/ALUMINUM HYDROXIDE/SIMETHICONE 30ML UDC PO PRN (08:45)
[2021-04-15] MEDS ORDERED: GUAIFENESIN 200MG/10ML SUGAR FREE UDC PO PRN (08:45)
[2021-04-15] MEDS ORDERED: LORAZEPAM 2MG/ML CPJ IV PRN (08:45)
[2021-04-15] MEDS ORDERED: DOCUSATE SODIUM 100MG CAPSULE PO PRN (08:45)
[2021-04-15] MEDS ORDERED: NALOXONE HCL 0.4MG/ML VIAL IV PRN (09:15)
[2021-04-15] MEDS: MORPHINE SULFATE 2 MG/ML CPJ (NOT FOR IM USE) IV PRN ×3 (09:18→21:04)
[2021-04-15] MEDS: ENOXAPARIN 30MG/0.3ML SYR SUBCUT SCH (09:19)
[2021-04-15 13:23] LABS: *AMPHETAMINES SCREEN URINE NEGATIVE (NEGATIVE)
[2021-04-15 13:24] LABS: *BARBITURATES SCREEN URINE NEGATIVE (NEGATIVE); *BENZODIAZEPINES SCREEN URINE NEGATIVE (NEGATIVE); *COCAINE SCREEN URINE NEGATIVE (NEGATIVE); CANNABINOID URINE SCREEN NEGATIVE (NEGATIVE); METHADONE URINE SCREEN NEGATIVE (NEGATIVE); OPIATES URINE SCREEN PRESUMTIVE POSITIVE (NEGATIVE); PHENCYCLIDINE URINE SCREEN NEGATIVE (NEGATIVE)
[2021-04-15 16:10] LABS: CREATINE KINASE MB FRACTION < 1.0 ng/mL (0.5-3.6)
[2021-04-15 16:28] LABS: CREATINE KINASE 84 IU/L (26-192)
[2021-04-15 22:00] VITALS: BP 125/83
[2021-04-16] VITALS (7 sets, daily range): BP systolic 117–155; BP diastolic 67–90
[2021-04-16 00:17] LABS: CREATINE KINASE 41 IU/L (26-192)
[2021-04-16 00:18] LABS: CREATINE KINASE MB FRACTION < 1.0 ng/mL (0.5-3.6)
[2021-04-16] MEDS: MORPHINE SULFATE 2 MG/ML CPJ (NOT FOR IM USE) IV PRN ×3 (03:53→17:25)
[2021-04-16] MEDS: ENOXAPARIN 30MG/0.3ML SYR SUBCUT SCH ×3 (04:06→21:00)
[2021-04-16] MEDS: SODIUM CHLORIDE 0.9% INJ 3ML FLUSH IVF SCH ×3 (06:00→21:01)
[2021-04-16 09:29] LABS: BASOPHILS % 0.5 % (0.0-2.0); EOSINOPHILS % 2.6 % (0.0-5.0); HEMATOCRIT. 37.5 % (36.0-48.0); HEMOGLOBIN. 11.7 g/dL (12.0-16.0); LYMPHOCYTES % 24.8 % (20.0-50.0); MEAN CORPUSCULAR HEMOGLOBIN 25.9 pg (28.0-32.0); MEAN CORPUSCULAR VOLUME 82.7 fL (81.0-99.0); MEAN PLATELET VOLUME 8.6 fl (7.4-10.4); MONOCYTES % 7.1 % (2.0-8.0); PLATELET 289 x1000/uL (130-400); RED BLOOD CELL COUNT 4.54 mill/uL (4.2-5.4); RED CELL DISTRIBUTION WIDTH 15.4 % (11.6-14.6)
[2021-04-16 09:30] LABS: CHLORIDE 110 mEq/L (98-107)
[2021-04-16] MEDS ORDERED: POTASSIUM CHLORIDE 20MEQ/PACKET PO NR (17:30)
[2021-04-17] VITALS: BP 121/62
[2021-04-17] MEDS: MORPHINE SULFATE 2 MG/ML CPJ (NOT FOR IM USE) IV PRN ×4 (00:16→20:52)
[2021-04-17 04:00] VITALS: BP 109/64
[2021-04-17 06:34] LABS: CHLORIDE 108 mEq/L (98-107)
[2021-04-17 06:46] LABS: BASOPHILS % 0.6 % (0.0-2.0); EOSINOPHILS % 3.1 % (0.0-5.0); HEMATOCRIT. 37.6 % (36.0-48.0); HEMOGLOBIN. 12.1 g/dL (12.0-16.0); LYMPHOCYTES % 29.4 % (20.0-50.0); MEAN CORPUSCULAR HEMOGLOBIN 26.6 pg (28.0-32.0); MEAN CORPUSCULAR VOLUME 82.5 fL (81.0-99.0); MONOCYTES % 5.8 % (2.0-8.0); NEUTROPHILS % 61.1 % (40.0-76.0); PLATELET 292 x1000/uL (130-400); RED BLOOD CELL COUNT 4.56 mill/uL (4.2-5.4); RED CELL DISTRIBUTION WIDTH 15.9 % (11.6-14.6)
[2021-04-17] MEDS: SODIUM CHLORIDE 0.9% INJ 3ML FLUSH IVF SCH ×3 (06:59→22:00)
[2021-04-17 08:20] VITALS: BP 111/75
[2021-04-17] MEDS: FUROSEMIDE 40MG TABLET PO SCH (08:52)
[2021-04-17] MEDS: ENOXAPARIN 30MG/0.3ML SYR SUBCUT SCH ×2 (08:53→20:52)
[2021-04-17 12:04] VITALS: BP 131/75
[2021-04-17 15:43] VITALS: BP 134/77
[2021-04-17 20:00] VITALS: BP 129/73
[2021-04-18] VITALS: BP 141/66
[2021-04-18] MEDS: MORPHINE SULFATE 2 MG/ML CPJ (NOT FOR IM USE) IV PRN ×2 (03:29→10:06)
[2021-04-18 04:00] VITALS: BP 135/81
[2021-04-18] MEDS: SODIUM CHLORIDE 0.9% INJ 3ML FLUSH IVF SCH (05:42)
[2021-04-18 08:00] VITALS: BP 124/67
[2021-04-18] MEDS: FUROSEMIDE 40MG TABLET PO SCH (08:44)
[2021-04-18] MEDS: ENOXAPARIN 30MG/0.3ML SYR SUBCUT SCH (08:44)
[2021-04-18 12:18] VITALS: BP 124/67
[2021-04-18 12:22] VITALS: BP 106/53
== END 2021-04-18 15:00 | disposition home or self-care (01) | DRG 206 ==
LOC: ER 22:22 → MICUSO 04-15 00:18 → 6WST 04-15 20:51
PROVIDERS: ADMIT Internal Medicine; ATTEND Internal Medicine
PROC: 4B02XTZ Measurement of Cardiac Defibrillator, External Approach (ICD-10-PCS; principal; 2021-04-16)
DX: T82.897A Other specified complication of cardiac prosthetic devices, implants and grafts, initial encounter (principal); I49.01 Ventricular fibrillation; I50.23 Acute on chronic systolic (congestive) heart failure; I42.9 Cardiomyopathy, unspecified; I11.0 Hypertensive heart disease with heart failure; E66.9 Obesity, unspecified; I25.10 Atherosclerotic heart disease of native coronary artery without angina pectoris; E11.9 Type 2 diabetes mellitus without complications; Z88.6 Allergy status to analgesic agent; Z88.8 Allergy status to other drugs, medicaments and biological substances; Z59.0 Homelessness; E78.5 Hyperlipidemia, unspecified; Z95.5 Presence of coronary angioplasty implant and graft; Z68.41 Body mass index [BMI] 40.0-44.9, adult; Z71.3 Dietary counseling and surveillance; Z45.02 Encounter for adjustment and management of automatic implantable cardiac defibrillator
CPT/HCPCS: 36415; 71045; 80048; 80053; 80305; 82550; 82553; 83735; 83880; 84443; 84484; 85025; 93005; 93970; 99285; J0360; J1650; J2270

== ENCOUNTER 2021-06-12 07:58 | Inpatient (IN) | payer MEDICAID ==
[~2021-06-12] VITALS: Ht 165.1 cm; Wt 135.6 kg
[~2021-06-12 07:58] MED LIST changes: +CLOP-31 PO; -CLOP75TA4 PO
[2021-06-12 10:36] LABS: BASOPHILS % 0.6 % (0.0-2.0); EOSINOPHILS % 1.6 % (0.0-5.0); HEMATOCRIT. 39.4 % (36.0-48.0); HEMOGLOBIN. 12.7 g/dL (12.0-16.0); LYMPHOCYTES % 28.4 % (20.0-50.0); MEAN CORPUSCULAR HEMOGLOBIN 26.5 pg (28.0-32.0); MEAN CORPUSCULAR VOLUME 82.3 fL (81.0-99.0); MEAN PLATELET VOLUME 8.2 fl (7.4-10.4); MONOCYTES % 10.2 % (2.0-8.0); NEUTROPHILS % 59.2 % (40.0-76.0); PLATELET 352 x1000/uL (130-400); RED BLOOD CELL COUNT 4.79 mill/uL (4.2-5.4); RED CELL DISTRIBUTION WIDTH 15.5 % (11.6-14.6)
[2021-06-12 10:43] LABS: CHLORIDE 108 mEq/L (98-107)
[2021-06-12] MEDS ORDERED: ASPIRIN 81MG TABLET PO ONE (10:45)
[2021-06-12 10:46] LABS: INR 1.1; PROTHROMBIN TIME 12.1 sec (9.6-11.0)
[2021-06-12] MEDS: NITROGLYCERIN 0.4MG TABLET SL SL PRN ×2 (11:33→14:09)
[2021-06-12 15:00] VITALS: BP 129/75
[2021-06-12] MEDS ORDERED: MORPHINE SULFATE 2 MG/ML CPJ (NOT FOR IM USE) IV ONE (15:15)
[2021-06-12] MEDS ORDERED: NALOXONE HCL 0.4MG/ML VIAL IV PRN (15:30)
[2021-06-12] MEDS: MORPHINE SULFATE 2 MG/ML CPJ (NOT FOR IM USE) IV PRN ×2 (15:51→20:10)
[2021-06-12] MEDS: CARVEDILOL 3.125 MG TABLET PO SCH (16:01)
[2021-06-12 20:00] VITALS: BP 169/72
[2021-06-12] MEDS: ATORVASTATIN CALCIUM 20MG TABLET PO SCH (20:09)
[2021-06-12] MEDS: HYDROCODONE/ACETAMINOPHEN 5/325MG TABLET PO PRN (21:44)
[2021-06-13] VITALS: BP 134/61
[2021-06-13] MEDS: MORPHINE SULFATE 2 MG/ML CPJ (NOT FOR IM USE) IV PRN ×6 (00:21→23:25)
[2021-06-13 04:00] VITALS: BP 155/91
[2021-06-13 05:39] LABS: BASOPHILS % 0.5 % (0.0-2.0); EOSINOPHILS % 1.5 % (0.0-5.0); HEMATOCRIT. 38.5 % (36.0-48.0); HEMOGLOBIN. 12.5 g/dL (12.0-16.0); MEAN CORPUSCULAR HEMOGLOBIN 26.9 pg (28.0-32.0); MEAN CORPUSCULAR VOLUME 82.7 fL (81.0-99.0); MEAN PLATELET VOLUME 8.9 fl (7.4-10.4); MONOCYTES % 10.3 % (2.0-8.0); NEUTROPHILS % 63.7 % (40.0-76.0); PLATELET 347 x1000/uL (130-400); RED BLOOD CELL COUNT 4.66 mill/uL (4.2-5.4); RED CELL DISTRIBUTION WIDTH 15.7 % (11.6-14.6)
[2021-06-13] MEDS ORDERED: CLONIDINE 0.1MG TABLET PO PRN (05:45)
[2021-06-13 05:56] LABS: CHLORIDE 104 mEq/L (98-107)
[2021-06-13 06:04] LABS: LDL CHOLESTEROL 125 mg/dL (5-100)
[2021-06-13 06:05] LABS: CREATINE KINASE 31 IU/L (26-192); CREATINE KINASE MB FRACTION < 1.0 ng/mL (0.5-3.6); HDL CHOLESTEROL 42 mg/dL (40-59)
[2021-06-13 08:00] VITALS: BP 148/85
[2021-06-13] MEDS: FUROSEMIDE 40MG/4ML VIAL IVP SCH (08:37)
[2021-06-13] MEDS: CARVEDILOL 3.125 MG TABLET PO SCH (08:37)
[2021-06-13] MEDS: CLOPIDOGREL 75MG TABLET PO SCH (08:38)
[2021-06-13] MEDS: POTASSIUM CHLORIDE 20MEQ TABLET SR PO SCH (08:52)
[2021-06-13] MEDS: HYDROCODONE/ACETAMINOPHEN 5/325MG TABLET PO PRN (10:50)
[2021-06-13 12:30] VITALS: BP 140/90
[2021-06-13] MEDS: LOSARTAN POTASSIUM 25 MG TABLET PO SCH (15:42)
[2021-06-13 15:47] VITALS: BP 145/88
[2021-06-13] MEDS: CARVEDILOL 12.5MG TABLET PO SCH (17:08)
[2021-06-13 20:00] VITALS: BP 124/84
[2021-06-13] MEDS: ATORVASTATIN CALCIUM 20MG TABLET PO SCH (21:02)
[2021-06-13 22:53] LABS: *AMPHETAMINES SCREEN URINE NEGATIVE (NEGATIVE); *BARBITURATES SCREEN URINE NEGATIVE (NEGATIVE); *BENZODIAZEPINES SCREEN URINE NEGATIVE (NEGATIVE); *COCAINE SCREEN URINE NEGATIVE (NEGATIVE)
[2021-06-13 22:54] LABS: CANNABINOID URINE SCREEN NEGATIVE (NEGATIVE); METHADONE URINE SCREEN NEGATIVE (NEGATIVE); OPIATES URINE SCREEN PRESUMTIVE POSITIVE (NEGATIVE); PHENCYCLIDINE URINE SCREEN NEGATIVE (NEGATIVE)
[2021-06-14] VITALS: BP 136/84
[2021-06-14 04:00] VITALS: BP 125/59
[2021-06-14] MEDS: MORPHINE SULFATE 2 MG/ML CPJ (NOT FOR IM USE) IV PRN ×2 (05:45→12:29)
[2021-06-14 07:38] LABS: CHLORIDE 105 mEq/L (98-107)
[2021-06-14 07:48] LABS: CREATINE KINASE 29 IU/L (26-192)
[2021-06-14 07:52] LABS: CREATINE KINASE MB FRACTION < 1.0 ng/mL (0.5-3.6)
[2021-06-14 08:00] VITALS: BP 123/69
[2021-06-14] MEDS: CARVEDILOL 12.5MG TABLET PO SCH (09:20)
[2021-06-14] MEDS: FUROSEMIDE 40MG/4ML VIAL IVP SCH (09:20)
[2021-06-14] MEDS: LOSARTAN POTASSIUM 25 MG TABLET PO SCH (09:20)
[2021-06-14] MEDS: CLOPIDOGREL 75MG TABLET PO SCH (09:20)
[2021-06-14] MEDS: POTASSIUM CHLORIDE 20MEQ TABLET SR PO SCH (09:20)
[2021-06-14 12:00] VITALS: BP 128/75
[2021-06-14 14:23] VITALS: BP 128/75
== END 2021-06-14 19:09 | disposition home or self-care (01) | DRG 198 ==
LOC: ER 08:15 → 6WST 11:17 → SUPCPDRO 13:40 → ENRESERV 14:52
PROVIDERS: ADMIT Internal Medicine; ATTEND Internal Medicine
DX: R07.89 Other chest pain (principal); I25.10 Atherosclerotic heart disease of native coronary artery without angina pectoris; I50.23 Acute on chronic systolic (congestive) heart failure; I42.9 Cardiomyopathy, unspecified; I11.0 Hypertensive heart disease with heart failure; E78.00 Pure hypercholesterolemia, unspecified; F17.210 Nicotine dependence, cigarettes, uncomplicated; E66.01 Morbid (severe) obesity due to excess calories; E78.5 Hyperlipidemia, unspecified; J44.9 Chronic obstructive pulmonary disease, unspecified; Z79.02 Long term (current) use of antithrombotics/antiplatelets; Z95.5 Presence of coronary angioplasty implant and graft; Z82.49 Family history of ischemic heart disease and other diseases of the circulatory system; Z68.42 Body mass index [BMI] 45.0-49.9, adult; Z88.8 Allergy status to other drugs, medicaments and biological substances; Z79.899 Other long term (current) drug therapy
CPT/HCPCS: 36415; 71045; 80053; 80061; 80305; 82550; 82553; 83605; 83735; 83880; 84443; 84484; 85025; 85379; 93005; 93306; 93970; 99285; J1940; J2270

== ENCOUNTER 2021-07-04 19:30 | Inpatient (IN) | payer MEDICAID ==
[~2021-07-04] VITALS: Ht 157.5 cm; Wt 94.8 kg
[2021-07-04 22:38] LABS: BASOPHILS % 0.7 % (0.0-2.0); EOSINOPHILS % 0.9 % (0.0-5.0); HEMATOCRIT. 39.2 % (36.0-48.0); HEMOGLOBIN. 12.7 g/dL (12.0-16.0); LYMPHOCYTES % 21.3 % (20.0-50.0); MEAN CORPUSCULAR HEMOGLOBIN 26.4 pg (28.0-32.0); MEAN CORPUSCULAR VOLUME 81.2 fL (81.0-99.0); MEAN PLATELET VOLUME 8.2 fl (7.4-10.4); MONOCYTES % 10.1 % (2.0-8.0); PLATELET 297 x1000/uL (130-400); RED BLOOD CELL COUNT 4.83 mill/uL (4.2-5.4); RED CELL DISTRIBUTION WIDTH 14.9 % (11.6-14.6)
[2021-07-04 22:44] LABS: CHLORIDE 98 mEq/L (98-107)
[2021-07-04] MEDS ORDERED: NITROGLYCERIN 0.4MG TABLET SL SL PRN (23:00)
[2021-07-05] MEDS ORDERED: POTASSIUM CHLORIDE INJ 40 MEQ in DEXT 5% WATER 250 ML IV ONE (00:30)
[2021-07-05] MEDS ORDERED: KCL 20MEQ/100ML PREMIX 100 ML IV NR ×2 (01:00→03:00)
[2021-07-05] MEDS ORDERED: CLONIDINE 0.1MG TABLET PO PRN (02:15)
[2021-07-05] MEDS ORDERED: MAGNESIUM/ALUMINUM HYDROXIDE/SIMETHICONE 30ML UDC PO PRN (02:15)
[2021-07-05] MEDS ORDERED: DOCUSATE SODIUM 100MG CAPSULE PO PRN (02:15)
[2021-07-05] MEDS ORDERED: IPRATROPIUM/ALBUTEROL 0.5-3(2.5)MG/3ML NEB NEB PRN (02:15)
[2021-07-05] MEDS ORDERED: ONDANSETRON HCL 4MG/2ML INJ IV PRN (02:15)
[2021-07-05] MEDS ORDERED: ACETAMINOPHEN 325MG TABLET PO PRN (02:15)
[2021-07-05] MEDS ORDERED: NALOXONE HCL 0.4MG/ML VIAL IV PRN (02:45)
[2021-07-05 03:05] LABS: CHLORIDE 100 mEq/L (98-107)
[2021-07-05] MEDS: ENOXAPARIN 30MG/0.3ML SYR SUBCUT SCH ×2 (03:42→20:54)
[2021-07-05 04:18] LABS: CLARITY URINE CLEAR (CLEAR); COLOR URINE YELLOW (YELLOW); KETONES URINE NEGATIVE (NEGATIVE); LEUKOCYTE ESTERASE URINE NEGATIVE (NEGATIVE); NITRITE URINE NEGATIVE (NEGATIVE); OCCULT BLOOD URINE NEGATIVE (NEGATIVE); PH URINE 5.5 (4.5-8.0); PROTEIN URINE NEGATIVE (NEGATIVE); SPECIFIC GRAVITY URINE 1.012 (1.005-1.030); UROBILINOGEN URINE 0.2 E.U./dL (0.2-1.0)
[2021-07-05 04:34] LABS: *AMPHETAMINES SCREEN URINE NEGATIVE (NEGATIVE); *BARBITURATES SCREEN URINE NEGATIVE (NEGATIVE); *BENZODIAZEPINES SCREEN URINE NEGATIVE (NEGATIVE); *COCAINE SCREEN URINE NEGATIVE (NEGATIVE); METHADONE URINE SCREEN NEGATIVE (NEGATIVE)
[2021-07-05 04:35] LABS: CANNABINOID URINE SCREEN NEGATIVE (NEGATIVE); OPIATES URINE SCREEN PRESUMTIVE POSITIVE (NEGATIVE); PHENCYCLIDINE URINE SCREEN NEGATIVE (NEGATIVE)
[2021-07-05] MEDS: ASPIRIN 81MG EC TABLET PO SCH (12:09)
[2021-07-05] MEDS: HYDROCODONE/ACETAMINOPHEN 5/325MG TABLET PO PRN ×2 (12:10→18:34)
[2021-07-05] MEDS: CLOPIDOGREL 75MG TABLET PO SCH (14:10)
[2021-07-05] MEDS: FUROSEMIDE 40MG/4ML VIAL IVP SCH (14:11)
[2021-07-05 16:00] VITALS: BP 119/61
[2021-07-05 16:06] VITALS: BP 121/78
[2021-07-05 20:00] VITALS: BP 103/69
[2021-07-05 20:36] LABS: BASOPHILS % 0.5 % (0.0-2.0); EOSINOPHILS % 1.9 % (0.0-5.0); HEMATOCRIT. 37.1 % (36.0-48.0); HEMOGLOBIN. 11.9 g/dL (12.0-16.0); LYMPHOCYTES % 26.8 % (20.0-50.0); MEAN CORPUSCULAR HEMOGLOBIN 26.2 pg (28.0-32.0); MEAN CORPUSCULAR VOLUME 81.7 fL (81.0-99.0); MEAN PLATELET VOLUME 8.5 fl (7.4-10.4); NEUTROPHILS % 59.8 % (40.0-76.0); PLATELET 280 x1000/uL (130-400); RED BLOOD CELL COUNT 4.54 mill/uL (4.2-5.4); RED CELL DISTRIBUTION WIDTH 15.1 % (11.6-14.6)
[2021-07-05] MEDS: CARVEDILOL 12.5MG TABLET PO SCH (20:50)
[2021-07-05 20:52] LABS: CREATINE KINASE 30 IU/L (26-192); CREATINE KINASE MB FRACTION < 1.0 ng/mL (0.5-3.6)
[2021-07-05] MEDS: ATORVASTATIN CALCIUM 40MG TABLET PO SCH (20:53)
[2021-07-06] VITALS (9 sets, daily range): BP systolic 105–126; BP diastolic 53–70
[2021-07-06] MEDS: HYDROCODONE/ACETAMINOPHEN 5/325MG TABLET PO PRN ×5 (05:39→22:01)
[2021-07-06] MEDS: ENOXAPARIN 30MG/0.3ML SYR SUBCUT SCH ×2 (09:04→20:19)
[2021-07-06] MEDS: FUROSEMIDE 40MG/4ML VIAL IVP SCH (09:04)
[2021-07-06 09:07] LABS: BASOPHILS % 0.4 % (0.0-2.0); EOSINOPHILS % 2.2 % (0.0-5.0); HEMATOCRIT. 37.4 % (36.0-48.0); HEMOGLOBIN. 11.9 g/dL (12.0-16.0); LYMPHOCYTES % 23.8 % (20.0-50.0); MEAN CORPUSCULAR HEMOGLOBIN 26.2 pg (28.0-32.0); MEAN CORPUSCULAR VOLUME 82.2 fL (81.0-99.0); MEAN PLATELET VOLUME 8.5 fl (7.4-10.4); MONOCYTES % 10.2 % (2.0-8.0); NEUTROPHILS % 63.4 % (40.0-76.0); PLATELET 281 x1000/uL (130-400); RED BLOOD CELL COUNT 4.55 mill/uL (4.2-5.4); RED CELL DISTRIBUTION WIDTH 15.1 % (11.6-14.6)
[2021-07-06] MEDS: CARVEDILOL 12.5MG TABLET PO SCH ×2 (09:07→20:18)
[2021-07-06] MEDS: ASPIRIN 81MG EC TABLET PO SCH ×2 (09:07→09:22)
[2021-07-06] MEDS: CLOPIDOGREL 75MG TABLET PO SCH (09:07)
[2021-07-06] MEDS: LOSARTAN POTASSIUM 25 MG TABLET PO SCH (09:07)
[2021-07-06] MEDS: POTASSIUM CHLORIDE 20MEQ TABLET SR PO SCH ×2 (09:07→17:18)
[2021-07-06 09:14] LABS: CHLORIDE 101 mEq/L (98-107)
[2021-07-06] MEDS: ATORVASTATIN CALCIUM 40MG TABLET PO SCH (20:18)
[2021-07-07 04:00] VITALS: BP 105/63
[2021-07-07] MEDS: HYDROCODONE/ACETAMINOPHEN 5/325MG TABLET PO PRN ×5 (05:07→22:02)
[2021-07-07 08:00] VITALS: BP 126/69
[2021-07-07] MEDS: ENOXAPARIN 30MG/0.3ML SYR SUBCUT SCH ×2 (09:04→21:09)
[2021-07-07] MEDS: FUROSEMIDE 40MG/4ML VIAL IVP SCH (09:04)
[2021-07-07] MEDS: CLOPIDOGREL 75MG TABLET PO SCH (09:05)
[2021-07-07] MEDS: LOSARTAN POTASSIUM 25 MG TABLET PO SCH (09:05)
[2021-07-07] MEDS: ASPIRIN 81MG EC TABLET PO SCH (09:05)
[2021-07-07] MEDS: CARVEDILOL 12.5MG TABLET PO SCH ×2 (09:05→21:00)
[2021-07-07] MEDS: POTASSIUM CHLORIDE 20MEQ TABLET SR PO SCH ×2 (09:05→17:42)
[2021-07-07 12:00] VITALS: BP 118/64
[2021-07-07 16:00] VITALS: BP 123/70
[2021-07-07 20:00] VITALS: BP 106/66
[2021-07-07] MEDS: ATORVASTATIN CALCIUM 40MG TABLET PO SCH (21:08)
[2021-07-08] VITALS: BP 109/62
[2021-07-08 04:00] VITALS: BP 111/61
[2021-07-08] MEDS: HYDROCODONE/ACETAMINOPHEN 5/325MG TABLET PO PRN ×3 (04:53→15:20)
[2021-07-08 08:00] VITALS: BP 107/70
[2021-07-08] MEDS: CARVEDILOL 12.5MG TABLET PO SCH (08:54)
[2021-07-08] MEDS: LOSARTAN POTASSIUM 25 MG TABLET PO SCH (08:54)
[2021-07-08] MEDS ORDERED: FUROSEMIDE 40MG TABLET PO SCH (09:00)
[2021-07-08] MEDS: POTASSIUM CHLORIDE 20MEQ TABLET SR PO SCH (09:02)
[2021-07-08] MEDS: ASPIRIN 81MG EC TABLET PO SCH (09:03)
[2021-07-08] MEDS: CLOPIDOGREL 75MG TABLET PO SCH (09:03)
[2021-07-08] MEDS: ENOXAPARIN 30MG/0.3ML SYR SUBCUT SCH (09:05)
[2021-07-08 12:00] VITALS: BP 113/68
[2021-07-08 15:27] VITALS: BP 115/76
[2021-07-08 16:00] VITALS: BP 117/73
== END 2021-07-08 17:04 | disposition home or self-care (01) | DRG 194 ==
LOC: ER 19:30 → 8WST 07-05 00:29 → ENRESERV 07-05 14:24
PROVIDERS: ADMIT Internal Medicine; ATTEND Internal Medicine
DX: I11.0 Hypertensive heart disease with heart failure (principal); R65.11 Systemic inflammatory response syndrome (SIRS) of non-infectious origin with acute organ dysfunction; I24.9 Acute ischemic heart disease, unspecified; I42.9 Cardiomyopathy, unspecified; I50.23 Acute on chronic systolic (congestive) heart failure; I25.10 Atherosclerotic heart disease of native coronary artery without angina pectoris; E66.9 Obesity, unspecified; E78.5 Hyperlipidemia, unspecified; E87.6 Hypokalemia; E78.00 Pure hypercholesterolemia, unspecified; Z95.5 Presence of coronary angioplasty implant and graft; Z95.810 Presence of automatic (implantable) cardiac defibrillator; Z88.6 Allergy status to analgesic agent; Z88.0 Allergy status to penicillin; Z88.8 Allergy status to other drugs, medicaments and biological substances; Z79.899 Other long term (current) drug therapy; Z79.84 Long term (current) use of oral hypoglycemic drugs; Z82.49 Family history of ischemic heart disease and other diseases of the circulatory system; Z68.38 Body mass index [BMI] 38.0-38.9, adult
CPT/HCPCS: 36415; 71045; 80048; 80053; 80061; 80305; 81003; 82550; 82553; 83036; 83735; 83880; 84132; 84443; 84484; 85025; 93005; 93970; 97162; 99285; C1893; J1650; J1940; J3480

== ENCOUNTER 2021-08-09 18:07 | Inpatient (IN) | payer MEDICAID ==
[~2021-08-09] VITALS: Ht 157.5 cm; Wt 122.5 kg
[2021-08-09 19:16] LABS: BASOPHILS % 0.5 % (0.0-2.0); EOSINOPHILS % 0.6 % (0.0-5.0); HEMATOCRIT. 39.5 % (36.0-48.0); HEMOGLOBIN. 12.5 g/dL (12.0-16.0); LYMPHOCYTES % 20.6 % (20.0-50.0); MEAN CORPUSCULAR HEMOGLOBIN 25.8 pg (28.0-32.0); MEAN CORPUSCULAR VOLUME 81.8 fL (81.0-99.0); MEAN PLATELET VOLUME 8.6 fl (7.4-10.4); MONOCYTES % 8.5 % (2.0-8.0); NEUTROPHILS % 69.8 % (40.0-76.0); PLATELET 297 x1000/uL (130-400); RED BLOOD CELL COUNT 4.83 mill/uL (4.2-5.4); RED CELL DISTRIBUTION WIDTH 14.7 % (11.6-14.6)
[2021-08-09 19:24] LABS: CHLORIDE 106 mEq/L (98-107)
[2021-08-09] MEDS ORDERED: NITROGLYCERIN SPRAY/4.9GM CAN TL NR (21:15)
[2021-08-09] MEDS ORDERED: POTASSIUM CHLORIDE 20MEQ TABLET SR PO NR (21:15)
[2021-08-09] MEDS ORDERED: MORPHINE SULFATE 4 MG/ML CPJ (NOT FOR IM USE) IV NR (21:30)
[2021-08-09] MEDS ORDERED: NITROGLYCERIN 0.4MG TABLET SL SL NR (22:30)
[2021-08-09] MEDS ORDERED: MAGNESIUM/ALUMINUM HYDROXIDE/SIMETHICONE 30ML UDC PO ONE (23:30)
[2021-08-09] MEDS ORDERED: NITROGLYCERIN 0.4MG TABLET SL SL ONE (23:30)
[2021-08-09] MEDS ORDERED: MORPHINE SULFATE 4 MG/ML CPJ (NOT FOR IM USE) IV ONE (23:30)
[2021-08-09] MEDS ORDERED: FAMOTIDINE 20MG TABLET PO ONE (23:30)
[2021-08-10 01:43] VITALS: BP 136/85
[2021-08-10] MEDS ORDERED: TRAMADOL 50MG TABLET PO PRN (02:15)
[2021-08-10] MEDS: MORPHINE SULFATE 2 MG/ML CPJ (NOT FOR IM USE) IV PRN ×5 (02:39→21:28)
[2021-08-10 04:00] VITALS: BP 140/81
[2021-08-10] MEDS: PANTOPRAZOLE 40MG DR TABLET PO SCH (06:17)
[2021-08-10 09:12] LABS: HEMATOCRIT 39.4 % (36.0-48.0); HEMOGLOBIN 12.4 g/dL (12.0-16.0); MEAN CORPUSCULAR HEMOGLOBIN 26.1 pg (28.0-32.0); MEAN CORPUSCULAR VOLUME 82.8 fL (81.0-99.0); PLATELET 302 x1000/uL (130-400); RED BLOOD CELL COUNT 4.76 mill/uL (4.2-5.4); RED CELL DISTRIBUTION WIDTH 14.9 % (11.6-14.6)
[2021-08-10 09:13] LABS: CHLORIDE 106 mEq/L (98-107)
[2021-08-10] MEDS: LOSARTAN POTASSIUM 25 MG TABLET PO SCH (09:26)
[2021-08-10] MEDS: FUROSEMIDE 40MG TABLET PO SCH (09:26)
[2021-08-10] MEDS: CLOPIDOGREL 75MG TABLET PO SCH (09:26)
[2021-08-10] MEDS: CARVEDILOL 12.5MG TABLET PO SCH ×2 (09:27→21:27)
[2021-08-10 12:00] VITALS: BP 125/75
[2021-08-10 16:00] VITALS: BP 124/71
[2021-08-10 20:00] VITALS: BP 118/72
[2021-08-10] MEDS ORDERED: ATORVASTATIN CALCIUM 40MG TABLET PO SCH (21:00)
[2021-08-11] VITALS: BP 111/63
[2021-08-11] MEDS: MORPHINE SULFATE 2 MG/ML CPJ (NOT FOR IM USE) IV PRN ×3 (01:54→10:15)
[2021-08-11 04:00] VITALS: BP 104/61
[2021-08-11 04:36] LABS: BASOPHILS % 0.5 % (0.0-2.0); EOSINOPHILS % 2.1 % (0.0-5.0); HEMOGLOBIN. 12.5 g/dL (12.0-16.0); LYMPHOCYTES % 21.7 % (20.0-50.0); MEAN CORPUSCULAR VOLUME 80.8 fL (81.0-99.0); MEAN PLATELET VOLUME 8.7 fl (7.4-10.4); MONOCYTES % 9.4 % (2.0-8.0); NEUTROPHILS % 66.3 % (40.0-76.0); PLATELET 299 x1000/uL (130-400); RED BLOOD CELL COUNT 4.82 mill/uL (4.2-5.4); RED CELL DISTRIBUTION WIDTH 14.6 % (11.6-14.6)
[2021-08-11 04:45] LABS: CHLORIDE 105 mEq/L (98-107)
[2021-08-11] MEDS: PANTOPRAZOLE 40MG DR TABLET PO SCH (06:46)
[2021-08-11 08:00] VITALS: BP 106/58
[2021-08-11] MEDS: CARVEDILOL 12.5MG TABLET PO SCH (08:37)
[2021-08-11] MEDS: FUROSEMIDE 40MG TABLET PO SCH (08:37)
[2021-08-11] MEDS: LOSARTAN POTASSIUM 25 MG TABLET PO SCH (08:37)
[2021-08-11] MEDS: CLOPIDOGREL 75MG TABLET PO SCH (08:37)
[2021-08-11 12:00] VITALS: BP 99/44
[2021-08-12] MEDS ORDERED: FAMOTIDINE 20MG TABLET PO SCH (07:10)
== END 2021-08-11 17:00 | disposition home or self-care (01) | DRG 198 ==
LOC: ER 18:07 → 8WST 21:23 → EDBEDREQTM 21:26 → EDBEDREQ 21:26 → ENRESERV 08-10 00:10
PROVIDERS: ADMIT Internal Medicine; ATTEND Internal Medicine
DX: R07.89 Other chest pain (principal); I25.10 Atherosclerotic heart disease of native coronary artery without angina pectoris; I50.43 Acute on chronic combined systolic (congestive) and diastolic (congestive) heart failure; I42.9 Cardiomyopathy, unspecified; I11.0 Hypertensive heart disease with heart failure; E87.6 Hypokalemia; E78.5 Hyperlipidemia, unspecified; E66.9 Obesity, unspecified; E11.9 Type 2 diabetes mellitus without complications; J44.9 Chronic obstructive pulmonary disease, unspecified; E78.00 Pure hypercholesterolemia, unspecified; Z82.49 Family history of ischemic heart disease and other diseases of the circulatory system; Z68.42 Body mass index [BMI] 45.0-49.9, adult; I25.2 Old myocardial infarction; Z95.810 Presence of automatic (implantable) cardiac defibrillator; Z88.8 Allergy status to other drugs, medicaments and biological substances; Z71.3 Dietary counseling and surveillance
CPT/HCPCS: 36415; 71045; 80048; 80053; 83880; 84484; 85025; 85027; 93005; 99285; J2270

== ENCOUNTER 2021-10-04 21:44 | Emergency (ER) | payer MEDICAID ==
[~2021-10-04] VITALS: Ht 165.1 cm; Wt 91.0 kg
[2021-10-04] MEDS ORDERED: TRAMADOL 50MG TABLET PO ONE (23:15)
[2021-10-05 00:01] LABS: BASOPHILS % 0.8 % (0.0-2.0); EOSINOPHILS % 4.4 % (0.0-5.0); HEMATOCRIT. 39.8 % (36.0-48.0); HEMOGLOBIN. 12.7 g/dL (12.0-16.0); LYMPHOCYTES % 24.5 % (20.0-50.0); MEAN CORPUSCULAR HEMOGLOBIN 25.8 pg (28.0-32.0); MEAN CORPUSCULAR VOLUME 80.7 fL (81.0-99.0); MEAN PLATELET VOLUME 8.6 fl (7.4-10.4); MONOCYTES % 6.4 % (2.0-8.0); NEUTROPHILS % 63.9 % (40.0-76.0); PLATELET 260 x1000/uL (130-400); RED BLOOD CELL COUNT 4.93 mill/uL (4.2-5.4); RED CELL DISTRIBUTION WIDTH 15.6 % (11.6-14.6)
[2021-10-05 00:09] LABS: CHLORIDE 105 mEq/L (98-107)
[2021-10-05 04:07] VITALS: BP 137/81
== END 2021-10-05 04:08 | disposition home or self-care (01) ==
LOC: ER 21:44
DX: R07.89 Other chest pain (principal); I11.0 Hypertensive heart disease with heart failure; I50.9 Heart failure, unspecified; E11.9 Type 2 diabetes mellitus without complications; Z79.899 Other long term (current) drug therapy
CPT/HCPCS: 36415; 71045; 80053; 83880; 84484; 85025; 85379; 93005; 99285

== ENCOUNTER 2021-10-26 02:26 | Inpatient (IN) | payer MEDICAID ==
[~2021-10-26] VITALS: Ht 157.5 cm; Wt 125.7 kg
[~2021-10-26 02:26] MED LIST changes: +MECL-159 MT
[2021-10-26] MEDS ORDERED: DIPHENHYDRAMINE 50MG/ML VIAL IV ONE (04:00)
[2021-10-26 04:07] LABS: BASOPHILS % 0.3 % (0.0-2.0); EOSINOPHILS % 1.7 % (0.0-5.0); HEMATOCRIT. 38.3 % (36.0-48.0); HEMOGLOBIN. 12.4 g/dL (12.0-16.0); MEAN CORPUSCULAR HEMOGLOBIN 26.3 pg (28.0-32.0); MEAN CORPUSCULAR VOLUME 81.2 fL (81.0-99.0); MEAN PLATELET VOLUME 8.8 fl (7.4-10.4); MONOCYTES % 11.1 % (2.0-8.0); NEUTROPHILS % 65.9 % (40.0-76.0); PLATELET 265 x1000/uL (130-400); RED BLOOD CELL COUNT 4.71 mill/uL (4.2-5.4); RED CELL DISTRIBUTION WIDTH 15.8 % (11.6-14.6)
[2021-10-26 04:17] LABS: CHLORIDE 105 mEq/L (98-107)
[2021-10-26] MEDS ORDERED: FUROSEMIDE 40MG/4ML VIAL IVP NR (04:30)
[2021-10-26] MEDS ORDERED: TRAMADOL 50MG TABLET PO PRN (08:30)
[2021-10-26] MEDS ORDERED: DEXTROSE 50% WATER 50ML SYRINGE IV PRN (08:30)
[2021-10-26] MEDS ORDERED: GUAIFENESIN 200MG/10ML SUGAR FREE UDC PO PRN (08:30)
[2021-10-26] MEDS ORDERED: MAGNESIUM/ALUMINUM HYDROXIDE/SIMETHICONE 30ML UDC PO PRN (08:30)
[2021-10-26] MEDS ORDERED: ONDANSETRON HCL 4MG/2ML INJ IV PRN (08:30)
[2021-10-26] MEDS ORDERED: CLONIDINE 0.1MG TABLET PO PRN (08:30)
[2021-10-26] MEDS ORDERED: IPRATROPIUM/ALBUTEROL 0.5-3(2.5)MG/3ML NEB HHN PRN (08:30)
[2021-10-26] MEDS ORDERED: DOCUSATE SODIUM 100MG CAPSULE PO PRN (08:30)
[2021-10-26] MEDS ORDERED: DIPHENHYDRAMINE 50MG/ML VIAL IV PRN (08:30)
[2021-10-26] MEDS ORDERED: ENOXAPARIN 40MG/0.4ML SYR SUBCUT SCH (09:00)
[2021-10-26] MEDS: BLOOD SUGAR DIAGNOSTIC STRIP TEST SCH ×4 (09:31→21:00)
[2021-10-26] MEDS ORDERED: NALOXONE HCL 0.4MG/ML VIAL IV PRN (14:30)
[2021-10-26] MEDS: TRAMADOL 50MG TABLET PO PRN (14:45)
[2021-10-26] MEDS: SODIUM CHLORIDE 0.9% INJ 3ML FLUSH IVF SCH ×2 (14:51→23:17)
[2021-10-26 16:14] LABS: CREATINE KINASE 41 IU/L (26-192)
[2021-10-26 16:16] LABS: CREATINE KINASE MB FRACTION < 1.0 ng/mL (0.5-3.6)
[2021-10-26] MEDS: MECLIZINE 25MG TABLET PO PRN (16:22)
[2021-10-26] MEDS: INSULIN LISPRO 100 UNITS/ML SUBCUT SCH (21:00)
[2021-10-26 22:08] VITALS: BP 111/61
[2021-10-26] MEDS: ENOXAPARIN 30MG/0.3ML SYR SUBCUT SCH (23:16)
[2021-10-26 23:44] LABS: CREATINE KINASE 37 IU/L (26-192)
[2021-10-26 23:46] LABS: CREATINE KINASE MB FRACTION < 1.0 ng/mL (0.5-3.6)
[2021-10-27] VITALS: BP 122/68
[2021-10-27] MEDS: TRAMADOL 50MG TABLET PO PRN ×4 (00:23→22:48)
[2021-10-27] MEDS: MECLIZINE 25MG TABLET PO PRN ×3 (00:23→22:47)
[2021-10-27 04:00] VITALS: BP 121/70
[2021-10-27] MEDS: SODIUM CHLORIDE 0.9% INJ 3ML FLUSH IVF SCH ×3 (06:39→22:30)
[2021-10-27] MEDS: BLOOD SUGAR DIAGNOSTIC STRIP TEST SCH ×2 (06:39→13:01)
[2021-10-27 06:52] LABS: BASOPHILS % 0.4 % (0.0-2.0); EOSINOPHILS % 1.6 % (0.0-5.0); HEMATOCRIT. 36.8 % (36.0-48.0); LYMPHOCYTES % 28.3 % (20.0-50.0); MEAN CORPUSCULAR HEMOGLOBIN 26.5 pg (28.0-32.0); MEAN PLATELET VOLUME 8.8 fl (7.4-10.4); MONOCYTES % 14.2 % (2.0-8.0); NEUTROPHILS % 55.5 % (40.0-76.0); PLATELET 277 x1000/uL (130-400); RED BLOOD CELL COUNT 4.54 mill/uL (4.2-5.4); RED CELL DISTRIBUTION WIDTH 16.2 % (11.6-14.6)
[2021-10-27 07:08] LABS: CHLORIDE 106 mEq/L (98-107)
[2021-10-27] MEDS: INSULIN LISPRO 100 UNITS/ML SUBCUT SCH ×2 (07:40→12:40)
[2021-10-27 08:00] VITALS: BP 128/78
[2021-10-27] MEDS: LORAZEPAM 2MG/ML CPJ IV PRN ×2 (11:26→22:47)
[2021-10-27] MEDS: ENOXAPARIN 30MG/0.3ML SYR SUBCUT SCH ×2 (11:27→22:29)
[2021-10-27 16:00] VITALS: BP 118/68
[2021-10-27 20:00] VITALS: BP 124/55
[2021-10-28] VITALS: BP 136/85
[2021-10-28 04:00] VITALS: BP 131/88
[2021-10-28 06:27] LABS: CHLORIDE 106 mEq/L (98-107)
[2021-10-28] MEDS: SODIUM CHLORIDE 0.9% INJ 3ML FLUSH IVF SCH ×2 (06:27→13:29)
[2021-10-28] MEDS: LORAZEPAM 2MG/ML CPJ IV PRN ×2 (06:27→13:27)
[2021-10-28] MEDS: MECLIZINE 25MG TABLET PO PRN (06:28)
[2021-10-28] MEDS: TRAMADOL 50MG TABLET PO PRN ×2 (06:28→13:27)
[2021-10-28 06:30] LABS: BASOPHILS % 0.2 % (0.0-2.0); EOSINOPHILS % 1.6 % (0.0-5.0); HEMOGLOBIN. 12.5 g/dL (12.0-16.0); LYMPHOCYTES % 30.1 % (20.0-50.0); MEAN CORPUSCULAR HEMOGLOBIN 26.4 pg (28.0-32.0); MEAN CORPUSCULAR VOLUME 82.1 fL (81.0-99.0); MEAN PLATELET VOLUME 9.1 fl (7.4-10.4); NEUTROPHILS % 59.1 % (40.0-76.0); PLATELET 273 x1000/uL (130-400); RED BLOOD CELL COUNT 4.75 mill/uL (4.2-5.4); RED CELL DISTRIBUTION WIDTH 15.8 % (11.6-14.6)
[2021-10-28] MEDS: ENOXAPARIN 30MG/0.3ML SYR SUBCUT SCH (09:59)
[2021-10-28 15:32] VITALS: BP 128/78
== END 2021-10-28 15:45 | disposition home or self-care (01) | DRG 198 ==
LOC: ER 02:26 → ENRESERV 20:28 → 8WST 22:23
PROVIDERS: ADMIT Internal Medicine; ATTEND Internal Medicine
DX: R07.89 Other chest pain (principal); I25.10 Atherosclerotic heart disease of native coronary artery without angina pectoris; I11.0 Hypertensive heart disease with heart failure; I50.22 Chronic systolic (congestive) heart failure; Z68.43 Body mass index [BMI] 50.0-59.9, adult; E78.5 Hyperlipidemia, unspecified; H93.19 Tinnitus, unspecified ear; Z20.822 Contact with and (suspected) exposure to COVID-19; E66.01 Morbid (severe) obesity due to excess calories; Z95.810 Presence of automatic (implantable) cardiac defibrillator; Z95.5 Presence of coronary angioplasty implant and graft; Z76.5 Malingerer [conscious simulation]; Z79.4 Long term (current) use of insulin; Z88.8 Allergy status to other drugs, medicaments and biological substances; R42 Dizziness and giddiness; E11.9 Type 2 diabetes mellitus without complications
CPT/HCPCS: 36415; 71045; 80048; 80053; 82550; 82553; 82962; 83036; 84484; 85025; 87426; 93005; 93970; 97161; 99285; J1200; J1650; J1940; J2060; J8597

== ENCOUNTER 2021-11-01 17:18 | Inpatient (IN) | payer MEDICAID ==
[~2021-11-01] VITALS: Ht 165.1 cm; Wt 99.8 kg
[2021-11-01] MEDS ORDERED: MECLIZINE 25MG TABLET PO ONE (18:30)
[2021-11-01 21:29] LABS: BASOPHILS % 0.5 % (0.0-2.0); EOSINOPHILS % 0.8 % (0.0-5.0); HEMATOCRIT. 40.7 % (36.0-48.0); HEMOGLOBIN. 13.1 g/dL (12.0-16.0); LYMPHOCYTES % 29.1 % (20.0-50.0); MEAN CORPUSCULAR HEMOGLOBIN 26.3 pg (28.0-32.0); MEAN CORPUSCULAR VOLUME 81.5 fL (81.0-99.0); MEAN PLATELET VOLUME 8.8 fl (7.4-10.4); MONOCYTES % 9.7 % (2.0-8.0); NEUTROPHILS % 59.9 % (40.0-76.0); PLATELET 294 x1000/uL (130-400); RED BLOOD CELL COUNT 4.99 mill/uL (4.2-5.4); RED CELL DISTRIBUTION WIDTH 16.2 % (11.6-14.6)
[2021-11-01 21:35] LABS: CHLORIDE 105 mEq/L (98-107)
[2021-11-01] MEDS ORDERED: NITROGLYCERIN 0.4MG TABLET SL SL ONE (23:00)
[2021-11-01] MEDS ORDERED: ASPIRIN 325MG EC TABLET PO ONE (23:00)
[2021-11-02] MEDS ORDERED: FUROSEMIDE 20MG/2ML VIAL IVP ONE
[2021-11-02] MEDS ORDERED: MORPHINE SULFATE 2 MG/ML CPJ (NOT FOR IM USE) IV PRN (03:45)
[2021-11-02] MEDS ORDERED: NALOXONE HCL 0.4 MG/ML 1ML VIAL IV PRN (03:45)
[2021-11-02] MEDS ORDERED: LORAZEPAM 1MG TABLET PO PRN (04:00)
[2021-11-02 04:35] VITALS: BP 141/81
[2021-11-02 08:00] VITALS: BP 133/74
[2021-11-02] MEDS ORDERED: FUROSEMIDE 40MG/4ML VIAL IVP SCH (09:00)
[2021-11-02] MEDS: ASPIRIN 81MG TABLET PO SCH (09:09)
[2021-11-02 12:00] VITALS: BP 115/68
[2021-11-02 16:00] VITALS: BP 124/67
[2021-11-02] MEDS: FUROSEMIDE 40MG/4ML VIAL IVP SCH (16:27)
[2021-11-02] MEDS: TRAMADOL 50MG TABLET PO PRN ×2 (16:27→22:50)
[2021-11-02 20:11] VITALS: BP 123/74
[2021-11-02 23:48] VITALS: BP 118/62
[2021-11-03 04:16] VITALS: BP 139/72
[2021-11-03] MEDS: TRAMADOL 50MG TABLET PO PRN ×2 (05:09→11:25)
[2021-11-03] MEDS: FUROSEMIDE 40MG/4ML VIAL IVP SCH ×2 (06:23→15:18)
[2021-11-03 08:00] VITALS: BP 129/45
[2021-11-03] MEDS: ASPIRIN 81MG TABLET PO SCH (08:55)
[2021-11-03 12:00] VITALS: BP 119/61
[2021-11-03 15:40] VITALS: BP 119/61
[2021-11-03 16:00] VITALS: BP 127/77
== END 2021-11-03 20:00 | disposition home or self-care (01) | DRG 194 ==
LOC: ER 17:18 → MICUSO 11-02 00:35 → 6WST 11-02 03:55
PROVIDERS: ADMIT Internal Medicine; ATTEND Internal Medicine
DX: I11.0 Hypertensive heart disease with heart failure (principal); I42.9 Cardiomyopathy, unspecified; E88.09 Other disorders of plasma-protein metabolism, not elsewhere classified; I50.23 Acute on chronic systolic (congestive) heart failure; E11.9 Type 2 diabetes mellitus without complications; E66.9 Obesity, unspecified; Z68.36 Body mass index [BMI] 36.0-36.9, adult; Z95.810 Presence of automatic (implantable) cardiac defibrillator; Z88.8 Allergy status to other drugs, medicaments and biological substances; Z71.3 Dietary counseling and surveillance
CPT/HCPCS: 36415; 71045; 80053; 83880; 84484; 85025; 87426; 93005; 93306; 99285; J1940; J2270

== ENCOUNTER 2021-11-17 17:37 | Inpatient (IN) | payer MEDICAID ==
[~2021-11-17] VITALS: Ht 165.1 cm; Wt 74.8 kg
[2021-11-17] MEDS ORDERED: MORPHINE SULFATE 4 MG/ML CPJ (NOT FOR IM USE) IV STA (18:10)
[2021-11-17] MEDS ORDERED: ONDANSETRON HCL 4MG/2ML INJ IV STA (18:10)
[2021-11-17] MEDS ORDERED: NITROGLYCERIN OINT 1GM/INCH UDPKT TD ONE (18:15)
[2021-11-17] MEDS ORDERED: ASPIRIN 81MG TABLET PO ONE (18:15)
[2021-11-17 18:22] LABS: BASOPHILS % 0.4 % (0.0-2.0); EOSINOPHILS % 0.7 % (0.0-5.0); HEMATOCRIT. 36.9 % (36.0-48.0); HEMOGLOBIN. 12.3 g/dL (12.0-16.0); LYMPHOCYTES % 20.4 % (20.0-50.0); MEAN CORPUSCULAR HEMOGLOBIN 26.8 pg (28.0-32.0); MEAN CORPUSCULAR VOLUME 80.8 fL (81.0-99.0); MEAN PLATELET VOLUME 8.7 fl (7.4-10.4); MONOCYTES % 9.9 % (2.0-8.0); NEUTROPHILS % 68.6 % (40.0-76.0); PLATELET 254 x1000/uL (130-400); RED BLOOD CELL COUNT 4.57 mill/uL (4.2-5.4); RED CELL DISTRIBUTION WIDTH 15.2 % (11.6-14.6)
[2021-11-17 18:31] LABS: CHLORIDE 102 mEq/L (98-107)
[2021-11-17 18:36] LABS: ETHANOL BLOOD < 10 mg/dL
[2021-11-17 20:40] VITALS: BP 104/43
[2021-11-17] MEDS ORDERED: CLONIDINE 0.1MG TABLET PO PRN (22:15)
[2021-11-17] MEDS: MORPHINE SULFATE 2 MG/ML CPJ (NOT FOR IM USE) IV PRN (22:25)
[2021-11-17] MEDS: ZOLPIDEM TARTRATE 5MG TABLET PO PRN (23:28)
[2021-11-18] VITALS (7 sets, daily range): BP systolic 102–133; BP diastolic 59–80
[2021-11-18 04:08] LABS: *BARBITURATES SCREEN URINE NEGATIVE (NEGATIVE)
[2021-11-18 04:09] LABS: *AMPHETAMINES SCREEN URINE NEGATIVE (NEGATIVE); *BENZODIAZEPINES SCREEN URINE NEGATIVE (NEGATIVE); *COCAINE SCREEN URINE NEGATIVE (NEGATIVE); METHADONE URINE SCREEN NEGATIVE (NEGATIVE); OPIATES URINE SCREEN PRESUMTIVE POSITIVE (NEGATIVE); PHENCYCLIDINE URINE SCREEN NEGATIVE (NEGATIVE)
[2021-11-18 04:10] LABS: CANNABINOID URINE SCREEN NEGATIVE (NEGATIVE)
[2021-11-18] MEDS: MORPHINE SULFATE 2 MG/ML CPJ (NOT FOR IM USE) IV PRN (06:44)
[2021-11-18 07:06] LABS: BASOPHILS % 0.3 % (0.0-2.0); EOSINOPHILS % 0.6 % (0.0-5.0); HEMATOCRIT. 34.7 % (36.0-48.0); HEMOGLOBIN. 11.3 g/dL (12.0-16.0); LYMPHOCYTES % 26.4 % (20.0-50.0); MEAN CORPUSCULAR HEMOGLOBIN 26.7 pg (28.0-32.0); MEAN CORPUSCULAR VOLUME 81.7 fL (81.0-99.0); MEAN PLATELET VOLUME 8.7 fl (7.4-10.4); MONOCYTES % 13.9 % (2.0-8.0); NEUTROPHILS % 58.8 % (40.0-76.0); PLATELET 230 x1000/uL (130-400); RED BLOOD CELL COUNT 4.25 mill/uL (4.2-5.4); RED CELL DISTRIBUTION WIDTH 15.3 % (11.6-14.6)
[2021-11-18 07:10] LABS: CHLORIDE 104 mEq/L (98-107)
[2021-11-18 07:18] LABS: LDL CHOLESTEROL 94 mg/dL (5-100)
[2021-11-18 07:20] LABS: HDL CHOLESTEROL 40 mg/dL (40-59)
[2021-11-18 07:29] LABS: CREATINE KINASE 54 IU/L (26-192)
[2021-11-18 07:30] LABS: CREATINE KINASE MB FRACTION < 1.0 ng/mL (0.5-3.6)
[2021-11-18] MEDS: FUROSEMIDE 40MG/4ML VIAL IVP SCH ×2 (10:26→17:57)
[2021-11-18] MEDS: TRAMADOL 50MG TABLET PO PRN ×3 (10:27→17:57)
[2021-11-18] MEDS: ASPIRIN 81MG TABLET PO SCH (10:27)
[2021-11-18] MEDS: ENOXAPARIN 40MG/0.4ML SYR SUBCUT SCH (10:28)
[2021-11-18 16:38] LABS: CREATINE KINASE 49 IU/L (26-192)
[2021-11-18 16:39] LABS: CREATINE KINASE MB FRACTION < 1.0 ng/mL (0.5-3.6)
[2021-11-18] MEDS: ZOLPIDEM TARTRATE 5MG TABLET PO PRN (20:34)
[2021-11-19] VITALS: BP 120/69
[2021-11-19] MEDS: TRAMADOL 50MG TABLET PO PRN (03:06)
[2021-11-19 04:00] VITALS: BP 137/76
[2021-11-19 07:40] VITALS: BP 108/53
[2021-11-19] MEDS: ASPIRIN 81MG TABLET PO SCH (08:24)
[2021-11-19] MEDS: ENOXAPARIN 40MG/0.4ML SYR SUBCUT SCH (08:24)
[2021-11-19] MEDS: FUROSEMIDE 40MG/4ML VIAL IVP SCH ×2 (08:24→17:00)
[2021-11-19 11:50] VITALS: BP 107/70
[2021-11-19] MEDS ORDERED: NITR0.4T49 SL (12:20)
[2021-11-19 12:47] VITALS: BP 107/70
[2021-11-19 16:15] VITALS: BP 111/69
== END 2021-11-19 17:31 | disposition home or self-care (01) | DRG 194 ==
LOC: ER 17:37 → 6WST 18:49 → ENRESERV 19:46
PROVIDERS: ADMIT Internal Medicine; ATTEND Internal Medicine
DX: I11.0 Hypertensive heart disease with heart failure (principal); E44.1 Mild protein-calorie malnutrition; I42.9 Cardiomyopathy, unspecified; I50.23 Acute on chronic systolic (congestive) heart failure; J44.9 Chronic obstructive pulmonary disease, unspecified; E11.9 Type 2 diabetes mellitus without complications; Z68.27 Body mass index [BMI] 27.0-27.9, adult; Z82.49 Family history of ischemic heart disease and other diseases of the circulatory system; Z88.1 Allergy status to other antibiotic agents; Z88.8 Allergy status to other drugs, medicaments and biological substances; Z95.810 Presence of automatic (implantable) cardiac defibrillator; Z76.5 Malingerer [conscious simulation]
CPT/HCPCS: 36415; 71045; 80048; 80053; 80061; 80305; 80320; 82550; 82553; 83880; 84484; 85025; 93005; 93970; 99291; J1650; J1940; J2270; J2405; G0480

== ENCOUNTER 2021-12-27 22:48 | Inpatient (IN) | payer MEDICAID ==
[~2021-12-27] VITALS: Ht 157.5 cm; Wt 131.5 kg
[~2021-12-27 22:48] MED LIST changes: +NITR0.4T49 SL
[2021-12-27] MEDS ORDERED: MORPHINE SULFATE 4 MG/ML CPJ (NOT FOR IM USE) IV STA (23:37)
[2021-12-27] MEDS ORDERED: ONDANSETRON HCL 4MG/2ML INJ IV STA (23:37)
[2021-12-28] LABS: BASOPHILS % 0.5 % (0.0-2.0); HEMATOCRIT. 37.3 % (36.0-48.0); HEMOGLOBIN. 12.2 g/dL (12.0-16.0); LYMPHOCYTES % 21.8 % (20.0-50.0); MEAN CORPUSCULAR HEMOGLOBIN 27.3 pg (28.0-32.0); MEAN CORPUSCULAR VOLUME 83.5 fL (81.0-99.0); MEAN PLATELET VOLUME 8.8 fl (7.4-10.4); MONOCYTES % 8.4 % (2.0-8.0); NEUTROPHILS % 68.3 % (40.0-76.0); PLATELET 260 x1000/uL (130-400); RED BLOOD CELL COUNT 4.47 mill/uL (4.2-5.4); RED CELL DISTRIBUTION WIDTH 15.4 % (11.6-14.6)
[2021-12-28 00:05] LABS: CHLORIDE 106 mEq/L (98-107)
[2021-12-28 08:45] VITALS: BP 128/72
[2021-12-28] MEDS ORDERED: DIPHENHYDRAMINE 50MG/ML VIAL IV PRN (09:15)
[2021-12-28] MEDS ORDERED: ONDANSETRON HCL 4MG/2ML INJ IV PRN (09:15)
[2021-12-28] MEDS ORDERED: IPRATROPIUM/ALBUTEROL 0.5-3(2.5)MG/3ML NEB HHN PRN (09:15)
[2021-12-28] MEDS ORDERED: CLONIDINE 0.1MG TABLET PO PRN (09:15)
[2021-12-28] MEDS: MORPHINE SULFATE 2 MG/ML CPJ (NOT FOR IM USE) IV PRN ×4 (09:29→22:24)
[2021-12-28] MEDS ORDERED: NALOXONE HCL 0.4MG/ML VIAL IV PRN (09:30)
[2021-12-28 12:00] VITALS: BP 130/67
[2021-12-28 16:00] VITALS: BP 130/71
[2021-12-28] MEDS: FUROSEMIDE 40MG TABLET PO SCH (16:32)
[2021-12-28 20:00] VITALS: BP 126/60
[2021-12-28] MEDS ORDERED: ATORVASTATIN CALCIUM 40MG TABLET PO SCH (21:00)
[2021-12-28] MEDS: CARVEDILOL 12.5MG TABLET PO SCH (21:01)
[2021-12-29] VITALS: BP 108/63
[2021-12-29] MEDS: MORPHINE SULFATE 2 MG/ML CPJ (NOT FOR IM USE) IV PRN ×3 (03:50→12:52)
[2021-12-29 06:47] VITALS: BP 106/70
[2021-12-29 06:53] LABS: BASOPHILS % 0.5 % (0.0-2.0); EOSINOPHILS % 1.5 % (0.0-5.0); HEMATOCRIT. 37.8 % (36.0-48.0); LYMPHOCYTES % 22.5 % (20.0-50.0); MEAN CORPUSCULAR HEMOGLOBIN 26.6 pg (28.0-32.0); MEAN PLATELET VOLUME 8.6 fl (7.4-10.4); MONOCYTES % 9.7 % (2.0-8.0); NEUTROPHILS % 65.8 % (40.0-76.0); PLATELET 261 x1000/uL (130-400); RED BLOOD CELL COUNT 4.51 mill/uL (4.2-5.4); RED CELL DISTRIBUTION WIDTH 15.8 % (11.6-14.6)
[2021-12-29 07:00] LABS: CHLORIDE 106 mEq/L (98-107)
[2021-12-29 07:54] VITALS: BP 135/71
[2021-12-29] MEDS: FUROSEMIDE 40MG TABLET PO SCH ×2 (08:35→17:00)
[2021-12-29] MEDS: CARVEDILOL 12.5MG TABLET PO SCH (08:36)
[2021-12-29] MEDS ORDERED: LOSARTAN POTASSIUM 25 MG TABLET PO SCH (09:00)
[2021-12-29] MEDS ORDERED: CLOPIDOGREL 75MG TABLET PO SCH (09:00)
[2021-12-29 12:00] VITALS: BP 116/65
[2021-12-29 14:26] VITALS: BP 132/69
[2021-12-29 16:00] VITALS: BP 121/77
== END 2021-12-29 18:36 | disposition home or self-care (01) | DRG 206 ==
LOC: ER 22:48 → MICUSO 12-28 03:52 → 6WST 12-28 08:48
PROVIDERS: ADMIT Internal Medicine; ATTEND Internal Medicine
PROC: 4B02XTZ Measurement of Cardiac Defibrillator, External Approach (ICD-10-PCS; principal; 2021-12-28)
DX: T82.897A Other specified complication of cardiac prosthetic devices, implants and grafts, initial encounter (principal); I42.0 Dilated cardiomyopathy; I50.9 Heart failure, unspecified; I11.0 Hypertensive heart disease with heart failure; R07.89 Other chest pain; I25.10 Atherosclerotic heart disease of native coronary artery without angina pectoris; F17.200 Nicotine dependence, unspecified, uncomplicated; J44.9 Chronic obstructive pulmonary disease, unspecified; I49.9 Cardiac arrhythmia, unspecified; E11.9 Type 2 diabetes mellitus without complications; Z95.810 Presence of automatic (implantable) cardiac defibrillator; I25.2 Old myocardial infarction; Z82.49 Family history of ischemic heart disease and other diseases of the circulatory system; Z90.49 Acquired absence of other specified parts of digestive tract; Z95.5 Presence of coronary angioplasty implant and graft; Z88.8 Allergy status to other drugs, medicaments and biological substances; Z79.899 Other long term (current) drug therapy
CPT/HCPCS: 36415; 71045; 80053; 83880; 84484; 85025; 93005; 93970; 99291; J2270; J2405

== ENCOUNTER 2022-02-07 01:15 | Emergency (ER) | payer MEDICAID ==
[~2022-02-07] VITALS: Ht 157.5 cm; Wt 123.0 kg
[~2022-02-07 01:15] MED LIST changes: +POTA-205 MT; -POTA20TA82 MT; -TRAM50TA3 MT
[2022-02-07 01:25] VITALS: BP 157/97
[2022-02-07 02:58] LABS: BASOPHILS % 0.3 % (0.0-2.0); EOSINOPHILS % 0.9 % (0.0-5.0); HEMATOCRIT. 37.6 % (36.0-48.0); LYMPHOCYTES % 14.2 % (20.0-50.0); MEAN CORPUSCULAR HEMOGLOBIN 26.6 pg (28.0-32.0); MEAN CORPUSCULAR VOLUME 83.2 fL (81.0-99.0); MEAN PLATELET VOLUME 8.9 fl (7.4-10.4); MONOCYTES % 7.8 % (2.0-8.0); NEUTROPHILS % 76.8 % (40.0-76.0); PLATELET 262 x1000/uL (130-400); RED BLOOD CELL COUNT 4.51 mill/uL (4.2-5.4); RED CELL DISTRIBUTION WIDTH 15.2 % (11.6-14.6)
[2022-02-07 03:02] LABS: CHLORIDE 103 mEq/L (98-107)
== END 2022-02-07 04:51 | disposition home or self-care (01) ==
LOC: ER 01:15
DX: R07.89 Other chest pain (principal); I11.0 Hypertensive heart disease with heart failure; I50.9 Heart failure, unspecified; I25.10 Atherosclerotic heart disease of native coronary artery without angina pectoris; Z95.0 Presence of cardiac pacemaker; Z98.61 Coronary angioplasty status; Z88.6 Allergy status to analgesic agent
CPT/HCPCS: 36415; 71045; 80053; 84484; 85025; 93005; 99285

== ENCOUNTER 2022-02-08 22:40 | Emergency (ER) | payer MEDICAID ==
[~2022-02-08] VITALS: Ht 162.6 cm; Wt 102.0 kg
[2022-02-08 23:05] VITALS: BP 112/50
[2022-02-09 00:27] LABS: BASOPHILS % 0.4 % (0.0-2.0); EOSINOPHILS % 1.6 % (0.0-5.0); HEMATOCRIT. 36.4 % (36.0-48.0); HEMOGLOBIN. 11.6 g/dL (12.0-16.0); LYMPHOCYTES % 18.4 % (20.0-50.0); MEAN CORPUSCULAR HEMOGLOBIN 26.7 pg (28.0-32.0); MEAN CORPUSCULAR VOLUME 83.5 fL (81.0-99.0); MEAN PLATELET VOLUME 8.5 fl (7.4-10.4); MONOCYTES % 11.9 % (2.0-8.0); NEUTROPHILS % 67.7 % (40.0-76.0); PLATELET 258 x1000/uL (130-400); RED BLOOD CELL COUNT 4.36 mill/uL (4.2-5.4); RED CELL DISTRIBUTION WIDTH 15.2 % (11.6-14.6)
[2022-02-09 00:28] LABS: CHLORIDE 105 mEq/L (98-107)
[2022-02-09] MEDS ORDERED: IOHEXOL-350 100 ML BOTTLE ONE (03:10)
== END 2022-02-09 06:11 | disposition home or self-care (01) ==
LOC: ER 22:40
DX: R07.9 Chest pain, unspecified (principal); I11.0 Hypertensive heart disease with heart failure; I25.10 Atherosclerotic heart disease of native coronary artery without angina pectoris; I50.9 Heart failure, unspecified; J44.9 Chronic obstructive pulmonary disease, unspecified; Z95.0 Presence of cardiac pacemaker; Z88.6 Allergy status to analgesic agent
CPT/HCPCS: 36415; 71045; 71275; 80053; 83880; 84484; 85025; 85379; 93005; 99285; Q9967

== ENCOUNTER 2022-03-16 21:35 | Emergency (ER) | payer MEDICAID ==
[~2022-03-16] VITALS: Ht 162.6 cm; Wt 163.6 kg
[~2022-03-16 21:35] MED LIST changes: +ISOS30TA91 MT
[2022-03-16 23:08] LABS: BASOPHILS % 0.4 % (0.0-2.0); EOSINOPHILS % 0.3 % (0.0-5.0); HEMOGLOBIN. 11.1 g/dL (12.0-16.0); LYMPHOCYTES % 28.6 % (20.0-50.0); MEAN CORPUSCULAR HEMOGLOBIN 26.5 pg (28.0-32.0); MEAN CORPUSCULAR VOLUME 83.7 fL (81.0-99.0); MEAN PLATELET VOLUME 8.3 fl (7.4-10.4); MONOCYTES % 11.2 % (2.0-8.0); NEUTROPHILS % 59.5 % (40.0-76.0); PLATELET 276 x1000/uL (130-400); RED BLOOD CELL COUNT 4.18 mill/uL (4.2-5.4)
[2022-03-16 23:17] LABS: CHLORIDE 107 mEq/L (98-107)
[2022-03-16] MEDS ORDERED: ONDANSETRON HCL 4MG/2ML INJ IV STA (23:48)
[2022-03-16] MEDS ORDERED: MORPHINE SULFATE 4 MG/ML CPJ (NOT FOR IM USE) IV STA (23:48)
[2022-03-17 04:40] VITALS: BP 133/88
== END 2022-03-17 04:40 | disposition home or self-care (01) ==
LOC: ER 21:35
DX: R07.9 Chest pain, unspecified (principal); I11.0 Hypertensive heart disease with heart failure; I50.9 Heart failure, unspecified; J44.9 Chronic obstructive pulmonary disease, unspecified; R73.03 Prediabetes; Z88.6 Allergy status to analgesic agent; Z95.0 Presence of cardiac pacemaker; Z98.62 Peripheral vascular angioplasty status
CPT/HCPCS: 36415; 71045; 80053; 83880; 84484; 85025; 93005; 96374; 96375; 99285; J2270; J2405

== ENCOUNTER 2022-04-03 01:32 | Emergency (ER) | payer MEDICAID ==
[~2022-04-03] VITALS: Ht 167.6 cm; Wt 96.0 kg
[2022-04-03] MEDS ORDERED: MORPHINE SULFATE 4 MG/ML CPJ (NOT FOR IM USE) IV ONE (03:15)
[2022-04-03 03:32] LABS: BASOPHILS % 1.2 % (0.0-2.0); HEMATOCRIT. 37.3 % (36.0-48.0); HEMOGLOBIN. 12.1 g/dL (12.0-16.0); LYMPHOCYTES % 25.2 % (20.0-50.0); MEAN CORPUSCULAR HEMOGLOBIN 26.7 pg (28.0-32.0); MEAN CORPUSCULAR VOLUME 82.5 fL (81.0-99.0); MEAN PLATELET VOLUME 8.6 fl (7.4-10.4); MONOCYTES % 11.1 % (2.0-8.0); NEUTROPHILS % 61.5 % (40.0-76.0); PLATELET 290 x1000/uL (130-400); RED BLOOD CELL COUNT 4.52 mill/uL (4.2-5.4); RED CELL DISTRIBUTION WIDTH 15.2 % (11.6-14.6)
[2022-04-03 03:41] LABS: CHLORIDE 104 mEq/L (98-107)
[2022-04-03 03:48] VITALS: BP 119/75
== END 2022-04-03 06:57 | disposition home or self-care (01) ==
LOC: ER 01:32
DX: R07.89 Other chest pain (principal); R06.02 Shortness of breath; I11.0 Hypertensive heart disease with heart failure; I50.9 Heart failure, unspecified; J44.9 Chronic obstructive pulmonary disease, unspecified; Z95.0 Presence of cardiac pacemaker; Z79.899 Other long term (current) drug therapy
CPT/HCPCS: 36415; 71045; 80053; 83880; 84484; 85025; 85379; 93005; 96374; 99285; J2270

== ENCOUNTER 2022-04-05 06:04 | Emergency (ER) | payer MEDICAID ==
[~2022-04-05] VITALS: Ht 170.2 cm; Wt 110.0 kg
[2022-04-05] MEDS ORDERED: LORAZEPAM 1MG TABLET PO ONE (08:00)
[2022-04-05 08:30] LABS: BASOPHILS % 0.4 % (0.0-2.0); HEMATOCRIT. 36.1 % (36.0-48.0); HEMOGLOBIN. 11.5 g/dL (12.0-16.0); LYMPHOCYTES % 24.9 % (20.0-50.0); MEAN CORPUSCULAR HEMOGLOBIN 26.5 pg (28.0-32.0); MEAN CORPUSCULAR VOLUME 83.2 fL (81.0-99.0); MEAN PLATELET VOLUME 8.8 fl (7.4-10.4); MONOCYTES % 10.8 % (2.0-8.0); NEUTROPHILS % 62.9 % (40.0-76.0); PLATELET 264 x1000/uL (130-400); RED BLOOD CELL COUNT 4.34 mill/uL (4.2-5.4); RED CELL DISTRIBUTION WIDTH 15.2 % (11.6-14.6)
[2022-04-05 08:32] LABS: CHLORIDE 104 mEq/L (98-107)
[2022-04-05 13:45] VITALS: BP 138/75
== END 2022-04-05 13:49 | disposition home or self-care (01) ==
LOC: ER 06:04
DX: R07.89 Other chest pain (principal); I11.0 Hypertensive heart disease with heart failure; I50.9 Heart failure, unspecified; E78.00 Pure hypercholesterolemia, unspecified; Z88.6 Allergy status to analgesic agent; Z79.899 Other long term (current) drug therapy
CPT/HCPCS: 36415; 71045; 80053; 83880; 84484; 85025; 93005; 99285

== ENCOUNTER 2022-05-09 23:05 | Emergency (ER) | payer MEDICAID ==
[~2022-05-09] VITALS: Ht 165.1 cm; Wt 113.0 kg
[2022-05-10 00:13] LABS: BASOPHILS % 0.5 % (0.0-2.0); EOSINOPHILS % 0.1 % (0.0-5.0); HEMATOCRIT. 37.5 % (36.0-48.0); HEMOGLOBIN. 12.2 g/dL (12.0-16.0); MEAN CORPUSCULAR HEMOGLOBIN 27.1 pg (28.0-32.0); MEAN CORPUSCULAR VOLUME 83.5 fL (81.0-99.0); MEAN PLATELET VOLUME 8.8 fl (7.4-10.4); MONOCYTES % 13.5 % (2.0-8.0); NEUTROPHILS % 61.9 % (40.0-76.0); PLATELET 269 x1000/uL (130-400); RED BLOOD CELL COUNT 4.49 mill/uL (4.2-5.4); RED CELL DISTRIBUTION WIDTH 15.7 % (11.6-14.6)
[2022-05-10 00:28] LABS: CHLORIDE 104 mEq/L (98-107)
[2022-05-10 07:45] VITALS: BP 135/68
[2022-05-10] MEDS ORDERED: OXYCODONE HCL 5MG TABLET PO ONE (07:45)
== END 2022-05-10 07:40 | disposition home or self-care (01) ==
LOC: ER 23:05
DX: R07.89 Other chest pain (principal); I11.0 Hypertensive heart disease with heart failure; I50.9 Heart failure, unspecified; I25.10 Atherosclerotic heart disease of native coronary artery without angina pectoris; J44.9 Chronic obstructive pulmonary disease, unspecified; I25.2 Old myocardial infarction; E66.9 Obesity, unspecified; Z68.41 Body mass index [BMI] 40.0-44.9, adult; Z95.810 Presence of automatic (implantable) cardiac defibrillator; Z88.6 Allergy status to analgesic agent
CPT/HCPCS: 36415; 71045; 80053; 83880; 84484; 85025; 93005; 99285

== ENCOUNTER 2022-06-05 06:58 | Inpatient (IN) | payer MEDICAID ==
[~2022-06-05] VITALS: Ht 157.5 cm; Wt 109.8 kg
[2022-06-05] MEDS ORDERED: ASPIRIN 81MG TABLET PO ONE (07:30)
[2022-06-05] MEDS ORDERED: MORPHINE SULFATE 2 MG/ML CPJ (NOT FOR IM USE) IV ONE (08:30)
[2022-06-05 09:18] LABS: BASOPHILS % 0.5 % (0.0-2.0); EOSINOPHILS % 0.3 % (0.0-5.0); HEMATOCRIT. 37.5 % (36.0-48.0); HEMOGLOBIN. 12.1 g/dL (12.0-16.0); LYMPHOCYTES % 24.8 % (20.0-50.0); MEAN CORPUSCULAR HEMOGLOBIN 26.7 pg (28.0-32.0); MEAN CORPUSCULAR VOLUME 82.9 fL (81.0-99.0); MEAN PLATELET VOLUME 9.1 fl (7.4-10.4); NEUTROPHILS % 63.4 % (40.0-76.0); PLATELET 251 x1000/uL (130-400); RED BLOOD CELL COUNT 4.53 mill/uL (4.2-5.4); RED CELL DISTRIBUTION WIDTH 15.7 % (11.6-14.6)
[2022-06-05 09:40] LABS: CHLORIDE 103 mEq/L (98-107)
[2022-06-05] MEDS ORDERED: ASPIRIN 81MG TABLET PO NR (10:30)
[2022-06-05] MEDS ORDERED: MORPHINE SULFATE 2 MG/ML CPJ (NOT FOR IM USE) IV NR (10:30)
[2022-06-05] MEDS ORDERED: ACETAMINOPHEN 650MG/20.3ML UDC PO ONE (11:30)
[2022-06-05] MEDS ORDERED: LORAZEPAM 2MG/ML CPJ IV ONE (11:30)
[2022-06-05] MEDS ORDERED: ONDANSETRON HCL 4MG/2ML INJ IV PRN (12:30)
[2022-06-05] MEDS ORDERED: ACETAMINOPHEN 325MG TABLET PO PRN ×2 (12:30)
[2022-06-05] MEDS ORDERED: NITROGLYCERIN 0.4MG TABLET SL SL PRN (12:30)
[2022-06-05] MEDS ORDERED: MAGNESIUM/ALUMINUM HYDROXIDE/SIMETHICONE 30ML UDC PO PRN (12:30)
[2022-06-05] MEDS ORDERED: CLONIDINE 0.1MG TABLET PO PRN (12:30)
[2022-06-05] MEDS ORDERED: DOCUSATE SODIUM 100MG CAPSULE PO PRN (12:30)
[2022-06-05 13:55] VITALS: BP 136/55
[2022-06-05 14:00] VITALS: BP 136/55
[2022-06-05] MEDS ORDERED: FUROSEMIDE 40MG/4ML VIAL IVP SCH (15:00)
[2022-06-05 16:00] VITALS: BP 116/80
[2022-06-05] MEDS: FUROSEMIDE 40MG/4ML VIAL IVP SCH (18:08)
[2022-06-05] MEDS: POTASSIUM CHLORIDE 20MEQ TABLET SR PO SCH (18:08)
[2022-06-05] MEDS: SODIUM CHLORIDE 0.9% INJ 3ML FLUSH IVF SCH ×3 (18:08→23:50)
[2022-06-05] MEDS: ENOXAPARIN 30MG/0.3ML SYR SUBCUT SCH ×2 (18:08→23:48)
[2022-06-05 19:56] LABS: CREATINE KINASE 45 IU/L (26-192); CREATINE KINASE MB FRACTION < 1.0 ng/mL (0.5-3.6)
[2022-06-05] MEDS: CARVEDILOL 12.5MG TABLET PO SCH (20:36)
[2022-06-05] MEDS ORDERED: ATORVASTATIN CALCIUM 40MG TABLET PO SCH (21:00)
[2022-06-06 00:12] LABS: CREATINE KINASE 40 IU/L (26-192); CREATINE KINASE MB FRACTION < 1.0 ng/mL (0.5-3.6)
[2022-06-06 00:45] VITALS: BP 120/61
[2022-06-06 04:00] VITALS: BP 120/72
[2022-06-06 05:20] LABS: BASOPHILS % 0.3 % (0.0-2.0); EOSINOPHILS % 0.4 % (0.0-5.0); HEMOGLOBIN. 12.3 g/dL (12.0-16.0); LYMPHOCYTES % 30.2 % (20.0-50.0); MEAN CORPUSCULAR HEMOGLOBIN 26.8 pg (28.0-32.0); MEAN CORPUSCULAR VOLUME 83.1 fL (81.0-99.0); MEAN PLATELET VOLUME 9.1 fl (7.4-10.4); MONOCYTES % 11.8 % (2.0-8.0); NEUTROPHILS % 57.3 % (40.0-76.0); PLATELET 261 x1000/uL (130-400); RED BLOOD CELL COUNT 4.57 mill/uL (4.2-5.4); RED CELL DISTRIBUTION WIDTH 15.6 % (11.6-14.6)
[2022-06-06] MEDS: SODIUM CHLORIDE 0.9% INJ 3ML FLUSH IVF SCH ×2 (05:29→14:00)
[2022-06-06 06:10] LABS: CHLORIDE 102 mEq/L (98-107)
[2022-06-06 06:24] LABS: HDL CHOLESTEROL 46 mg/dL (40-59); LDL CHOLESTEROL 137 mg/dL (5-100); PHOSPHORUS 4.1 mg/dL (2.5-4.9)
[2022-06-06] MEDS ORDERED: POTASSIUM CHLORIDE 20MEQ TABLET SR PO NR ×2 (07:15→12:30)
[2022-06-06 08:00] VITALS: BP 152/83
[2022-06-06] MEDS ORDERED: KCL 20MEQ/100ML PREMIX 100 ML IV NR ×2 (08:30→10:00)
[2022-06-06] MEDS ORDERED: LOSARTAN POTASSIUM 25 MG TABLET PO SCH (09:00)
[2022-06-06] MEDS ORDERED: ASPIRIN 81MG EC TABLET PO SCH (09:00)
[2022-06-06] MEDS ORDERED: CLOPIDOGREL 75MG TABLET PO SCH (09:00)
[2022-06-06] MEDS ORDERED: ISOSORBIDE MONONITRATE 30MG TABLET SR 24HR PO SCH (09:00)
[2022-06-06] MEDS: ENOXAPARIN 30MG/0.3ML SYR SUBCUT SCH (09:57)
[2022-06-06] MEDS: FUROSEMIDE 40MG/4ML VIAL IVP SCH (09:57)
[2022-06-06] MEDS: CARVEDILOL 12.5MG TABLET PO SCH (09:58)
[2022-06-06] MEDS: POTASSIUM CHLORIDE 20MEQ TABLET SR PO SCH (09:58)
[2022-06-06 12:00] VITALS: BP 111/52
[2022-06-06 13:05] LABS: CLARITY URINE CLEAR (CLEAR); COLOR URINE YELLOW (YELLOW); KETONES URINE NEGATIVE (NEGATIVE); LEUKOCYTE ESTERASE URINE NEGATIVE (NEGATIVE); NITRITE URINE POSITIVE (NEGATIVE); OCCULT BLOOD URINE NEGATIVE (NEGATIVE); PH URINE 7.5 (4.5-8.0); PROTEIN URINE NEGATIVE (NEGATIVE)
[2022-06-06 14:03] LABS: *AMPHETAMINES SCREEN URINE NEGATIVE (NEGATIVE); *BARBITURATES SCREEN URINE NEGATIVE (NEGATIVE); *BENZODIAZEPINES SCREEN URINE NEGATIVE (NEGATIVE); *COCAINE SCREEN URINE NEGATIVE (NEGATIVE); CANNABINOID URINE SCREEN NEGATIVE (NEGATIVE); METHADONE URINE SCREEN NEGATIVE (NEGATIVE); OPIATES URINE SCREEN PRESUMTIVE POSITIVE (NEGATIVE); PHENCYCLIDINE URINE SCREEN NEGATIVE (NEGATIVE)
== END 2022-06-06 16:06 | disposition home or self-care (01) | DRG 198 ==
LOC: ER 07:24 → CANBEDREQ 10:15 → 6WST 11:12 → ENRESERV 12:25
PROVIDERS: ADMIT Internal Medicine; ATTEND Internal Medicine
DX: R07.9 Chest pain, unspecified (principal); I25.10 Atherosclerotic heart disease of native coronary artery without angina pectoris; I11.0 Hypertensive heart disease with heart failure; I50.9 Heart failure, unspecified; E66.9 Obesity, unspecified; F41.9 Anxiety disorder, unspecified; J44.9 Chronic obstructive pulmonary disease, unspecified; R73.03 Prediabetes; Z20.822 Contact with and (suspected) exposure to COVID-19; I25.2 Old myocardial infarction; Z68.41 Body mass index [BMI] 40.0-44.9, adult; Z88.6 Allergy status to analgesic agent; Z88.3 Allergy status to other anti-infective agents; Z82.49 Family history of ischemic heart disease and other diseases of the circulatory system; Z83.3 Family history of diabetes mellitus
CPT/HCPCS: 36415; 71045; 80048; 80053; 80061; 80305; 81003; 82330; 82550; 82553; 83036; 83735; 83880; 84100; 84484; 85025; 87426; 93005; 99285; C9803; J1650; J1940; J2060; J2270; J3480

== ENCOUNTER 2022-08-01 02:26 | Inpatient (IN) | payer MEDICAID ==
[~2022-08-01] VITALS: Ht 157.5 cm; Wt 127.1 kg
[~2022-08-01 02:26] MED LIST changes: +HYDR-4001 MT; +HYDR-4005 MT
[2022-08-01 04:54] LABS: BASOPHILS % 0.3 % (0.0-2.0); EOSINOPHILS % 0.9 % (0.0-5.0); HEMATOCRIT. 36.9 % (36.0-48.0); LYMPHOCYTES % 27.2 % (20.0-50.0); MEAN CORPUSCULAR HEMOGLOBIN 27.5 pg (28.0-32.0); MEAN CORPUSCULAR VOLUME 84.4 fL (81.0-99.0); MEAN PLATELET VOLUME 8.7 fl (7.4-10.4); MONOCYTES % 9.4 % (2.0-8.0); NEUTROPHILS % 62.2 % (40.0-76.0); PLATELET 241 x1000/uL (130-400); RED BLOOD CELL COUNT 4.37 mill/uL (4.2-5.4); RED CELL DISTRIBUTION WIDTH 15.9 % (11.6-14.6)
[2022-08-01 05:08] LABS: CHLORIDE 106 mEq/L (98-107)
[2022-08-01 05:24] LABS: INR 1.1; PROTHROMBIN TIME 11.9 sec (9.6-11.0)
[2022-08-01] MEDS ORDERED: ALBUTEROL (0.5%) 2.5MG/0.5ML NEB HHN ONE (06:15)
[2022-08-01] MEDS ORDERED: ALBUTEROL (0.5%) 2.5MG/0.5ML NEB HHN NR (06:15)
[2022-08-01] MEDS ORDERED: ASPIRIN 325MG EC TABLET PO NR (06:45)
[2022-08-01] MEDS ORDERED: MORPHINE SULFATE 4 MG/ML CPJ (NOT FOR IM USE) IV ONE (08:15)
[2022-08-01] MEDS ORDERED: ONDANSETRON HCL 4MG/2ML INJ IV PRN (12:15)
[2022-08-01] MEDS ORDERED: NALOXONE HCL 0.4MG/ML VIAL IV PRN (12:30)
[2022-08-01] MEDS: TRAMADOL 50MG TABLET PO PRN (15:23)
[2022-08-01 17:12] VITALS: BP 152/82
[2022-08-01 17:33] VITALS: BP 152/82
[2022-08-01] MEDS: FUROSEMIDE 40MG/4ML VIAL IVP SCH (18:30)
[2022-08-01 20:00] VITALS: BP 129/65
[2022-08-01] MEDS ORDERED: IPRATROPIUM/ALBUTEROL 0.5-3(2.5)MG/3ML NEB HHN PRN (20:00)
[2022-08-02] VITALS: BP 146/77
[2022-08-02] MEDS ORDERED: HYDROCODONE/ACETAMINOPHEN 5/325MG TABLET PO PRN
[2022-08-02] MEDS: TRAMADOL 50MG TABLET PO PRN ×2 (00:09→06:32)
[2022-08-02] MEDS: LORAZEPAM 1MG TABLET PO PRN ×2 (00:09→09:30)
[2022-08-02 04:00] VITALS: BP 143/76
[2022-08-02 08:00] VITALS: BP 157/75
[2022-08-02] MEDS: FUROSEMIDE 40MG/4ML VIAL IVP SCH (09:00)
[2022-08-02] MEDS ORDERED: ASPIRIN 81MG TABLET PO SCH (09:00)
[2022-08-02 10:27] VITALS: BP 157/75
== END 2022-08-02 11:15 | disposition home or self-care (01) | DRG 194 ==
LOC: ER 02:26 → 8WST 08:11 → EDBEDREQ 08:12 → EDBEDREQTM 08:12
PROVIDERS: ADMIT Internal Medicine; ATTEND Internal Medicine
DX: I11.0 Hypertensive heart disease with heart failure (principal); Z68.43 Body mass index [BMI] 50.0-59.9, adult; I50.23 Acute on chronic systolic (congestive) heart failure; Z20.822 Contact with and (suspected) exposure to COVID-19; E66.01 Morbid (severe) obesity due to excess calories; E11.9 Type 2 diabetes mellitus without complications; J44.9 Chronic obstructive pulmonary disease, unspecified; Z88.8 Allergy status to other drugs, medicaments and biological substances; Z88.6 Allergy status to analgesic agent; R07.9 Chest pain, unspecified
CPT/HCPCS: 36415; 71045; 80053; 83880; 84484; 85025; 87426; 87804; 93005; 99285; J1940; J2270

== ENCOUNTER 2022-08-14 16:34 | Emergency (ER) | payer MEDICAID ==
[~2022-08-14] VITALS: Ht 172.7 cm; Wt 110.0 kg
[~2022-08-14 16:34] MED LIST changes: -HYDR-4001 MT; -HYDR-4005 MT
[2022-08-14] MEDS ORDERED: ONDANSETRON HCL 4MG/2ML INJ IV ONE (18:00)
[2022-08-14] MEDS ORDERED: MORPHINE SULFATE 4 MG/ML CPJ (NOT FOR IM USE) IV ONE (18:00)
[2022-08-14 18:46] LABS: BASOPHILS % 0.4 % (0.0-2.0); EOSINOPHILS % 0.3 % (0.0-5.0); HEMATOCRIT. 37.6 % (36.0-48.0); HEMOGLOBIN. 12.3 g/dL (12.0-16.0); LYMPHOCYTES % 16.5 % (20.0-50.0); MEAN CORPUSCULAR HEMOGLOBIN 27.5 pg (28.0-32.0); MEAN CORPUSCULAR VOLUME 83.9 fL (81.0-99.0); MONOCYTES % 8.3 % (2.0-8.0); NEUTROPHILS % 74.5 % (40.0-76.0); PLATELET 273 x1000/uL (130-400); RED BLOOD CELL COUNT 4.47 mill/uL (4.2-5.4)
[2022-08-14 18:55] LABS: CHLORIDE 104 mEq/L (98-107)
[2022-08-14 23:17] VITALS: BP 150/70
== END 2022-08-14 23:24 | disposition home or self-care (01) ==
LOC: ER 16:34
DX: R07.89 Other chest pain (principal); I11.0 Hypertensive heart disease with heart failure; I50.9 Heart failure, unspecified; J44.9 Chronic obstructive pulmonary disease, unspecified; I25.2 Old myocardial infarction; Z79.899 Other long term (current) drug therapy; F12.10 Cannabis abuse, uncomplicated; F15.10 Other stimulant abuse, uncomplicated
CPT/HCPCS: 36415; 71045; 80053; 84484; 85025; 93005; 96374; 96375; 99285; J2270; J2405

== ENCOUNTER 2022-11-11 09:33 | Inpatient (IN) | payer MEDICAID ==
[~2022-11-11] VITALS: Ht 157.5 cm; Wt 128.4 kg
[2022-11-11 10:58] LABS: BASOPHILS % 0.3 % (0.0-2.0); EOSINOPHILS % 0.7 % (0.0-5.0); HEMATOCRIT. 38.9 % (36.0-48.0); HEMOGLOBIN. 12.6 g/dL (12.0-16.0); LYMPHOCYTES % 23.9 % (20.0-50.0); MEAN CORPUSCULAR VOLUME 83.8 fL (81.0-99.0); MEAN PLATELET VOLUME 8.6 fl (7.4-10.4); MONOCYTES % 12.3 % (2.0-8.0); NEUTROPHILS % 62.8 % (40.0-76.0); PLATELET 246 x1000/uL (130-400); RED BLOOD CELL COUNT 4.64 mill/uL (4.2-5.4); RED CELL DISTRIBUTION WIDTH 15.3 % (11.6-14.6)
[2022-11-11 11:07] LABS: CHLORIDE 107 mEq/L (98-107)
[2022-11-11 11:17] LABS: ETHANOL BLOOD < 10 mg/dL
[2022-11-11] MEDS ORDERED: ONDANSETRON HCL 4MG/2ML INJ IV ONE (13:15)
[2022-11-11] MEDS ORDERED: ONDANSETRON HCL 4MG/2ML INJ IV NR (13:15)
[2022-11-11] MEDS ORDERED: MORPHINE SULFATE 4 MG/ML CPJ (NOT FOR IM USE) IV ONE (13:15)
[2022-11-11] MEDS ORDERED: VISCOUS LIDOCAINE 2% 15 ML UDC MM STA (14:50)
[2022-11-11] MEDS ORDERED: VISCOUS LIDOCAINE 2% 15 ML UDC MM NR (14:50)
[2022-11-11] MEDS ORDERED: FAMOTIDINE 20MG/2ML VIAL IV ONE (15:00)
[2022-11-11] MEDS ORDERED: FAMOTIDINE 20MG/2ML VIAL IV NR (15:00)
[2022-11-11] MEDS ORDERED: MORPHINE SULFATE 2 MG/ML CPJ (NOT FOR IM USE) IV NR (15:00)
[2022-11-11] MEDS ORDERED: MAGNESIUM/ALUMINUM HYDROXIDE/SIMETHICONE 30ML UDC PO ONE (15:00)
[2022-11-11] MEDS ORDERED: MORPHINE SULFATE 2 MG/ML CPJ (NOT FOR IM USE) IV ONE (15:00)
[2022-11-11] MEDS ORDERED: MAGNESIUM/ALUMINUM HYDROXIDE/SIMETHICONE 30ML UDC PO NR (15:00)
[2022-11-11 20:45] VITALS: BP 143/68
[2022-11-11] MEDS ORDERED: SIMV-46 PO (22:08)
[2022-11-11] MEDS ORDERED: ZOLPIDEM TARTRATE 5MG TABLET PO PRN (22:15)
[2022-11-11] MEDS ORDERED: NITROGLYCERIN 0.4MG TABLET SL SL PRN (22:15)
[2022-11-11] MEDS ORDERED: NALOXONE HCL 0.4MG/ML VIAL IV PRN (22:30)
[2022-11-11] MEDS: POTASSIUM CHLORIDE 20MEQ TABLET SR PO SCH (22:32)
[2022-11-11] MEDS: MORPHINE SULFATE 2 MG/ML CPJ (NOT FOR IM USE) IV PRN (22:33)
[2022-11-11] MEDS ORDERED: CLONIDINE 0.1MG TABLET PO PRN (22:45)
[2022-11-12] VITALS: BP 136/63
[2022-11-12] MEDS: LORAZEPAM 2MG/ML CPJ IV PRN ×2 (00:32→08:56)
[2022-11-12] MEDS: MORPHINE SULFATE 2 MG/ML CPJ (NOT FOR IM USE) IV PRN ×3 (02:49→13:39)
[2022-11-12 04:00] VITALS: BP 121/81
[2022-11-12 07:35] LABS: CHLORIDE 105 mEq/L (98-107)
[2022-11-12 07:45] LABS: HDL CHOLESTEROL 41 mg/dL (40-59); LDL CHOLESTEROL 150 mg/dL (5-100)
[2022-11-12 07:52] LABS: BASOPHILS % 0.3 % (0.0-2.0); EOSINOPHILS % 0.3 % (0.0-5.0); HEMATOCRIT. 37.6 % (36.0-48.0); HEMOGLOBIN. 12.3 g/dL (12.0-16.0); LYMPHOCYTES % 24.6 % (20.0-50.0); MEAN CORPUSCULAR HEMOGLOBIN 27.5 pg (28.0-32.0); MEAN PLATELET VOLUME 9.9 fl (7.4-10.4); MONOCYTES % 8.5 % (2.0-8.0); NEUTROPHILS % 66.3 % (40.0-76.0); PLATELET 236 x1000/uL (130-400); RED BLOOD CELL COUNT 4.47 mill/uL (4.2-5.4); RED CELL DISTRIBUTION WIDTH 15.9 % (11.6-14.6)
[2022-11-12 08:00] VITALS: BP 146/59
[2022-11-12 08:08] LABS: HEPATITIS B SURFACE ANTIGEN NEGATIVE
[2022-11-12] MEDS: POTASSIUM CHLORIDE 20MEQ TABLET SR PO SCH (08:47)
[2022-11-12] MEDS ORDERED: CARVEDILOL 12.5MG TABLET PO SCH (09:00)
[2022-11-12] MEDS ORDERED: CLOPIDOGREL 75MG TABLET PO SCH (09:00)
[2022-11-12] MEDS ORDERED: ATORVASTATIN CALCIUM 20MG TABLET PO SCH (09:00)
[2022-11-12] MEDS ORDERED: FUROSEMIDE 40MG TABLET PO SCH (09:00)
[2022-11-12] MEDS ORDERED: ISOSORBIDE MONONITRATE 30MG TABLET SR 24HR PO SCH (09:00)
[2022-11-12 09:13] LABS: *AMPHETAMINES SCREEN URINE NEGATIVE (NEGATIVE); *BARBITURATES SCREEN URINE NEGATIVE (NEGATIVE); *BENZODIAZEPINES SCREEN URINE NEGATIVE (NEGATIVE); *COCAINE SCREEN URINE NEGATIVE (NEGATIVE); CANNABINOID URINE SCREEN NEGATIVE (NEGATIVE); METHADONE URINE SCREEN NEGATIVE (NEGATIVE); OPIATES URINE SCREEN PRESUMTIVE POSITIVE (NEGATIVE); PHENCYCLIDINE URINE SCREEN NEGATIVE (NEGATIVE)
[2022-11-12 12:00] VITALS: BP 112/65
[2022-11-12 14:35] VITALS: BP 112/66
[2022-11-12 15:20] VITALS: BP 120/58
== END 2022-11-12 15:45 | disposition home or self-care (01) | DRG 203 ==
LOC: ER 09:33 → 7WST 14:45 → EDBEDREQ 14:46 → EDBEDREQTM 14:46 → ENRESERV 19:16
PROVIDERS: ADMIT Internal Medicine; ATTEND Internal Medicine
DX: M94.0 Chondrocostal junction syndrome [Tietze] (principal); I11.0 Hypertensive heart disease with heart failure; I50.9 Heart failure, unspecified; Z68.43 Body mass index [BMI] 50.0-59.9, adult; I25.10 Atherosclerotic heart disease of native coronary artery without angina pectoris; E66.9 Obesity, unspecified; Z20.822 Contact with and (suspected) exposure to COVID-19; J44.9 Chronic obstructive pulmonary disease, unspecified; Z79.899 Other long term (current) drug therapy; Z88.8 Allergy status to other drugs, medicaments and biological substances; I25.2 Old myocardial infarction; Z82.49 Family history of ischemic heart disease and other diseases of the circulatory system
CPT/HCPCS: 36415; 71045; 80048; 80053; 80061; 80305; 80320; 83880; 84484; 85025; 86803; 87340; 87426; 93005; 99285; C9803; J2060; J2270; J2405; G0480

== ENCOUNTER 2022-11-13 06:53 | Inpatient (IN) | payer MEDICAID ==
[~2022-11-13] VITALS: Ht 160 cm; Wt 129.3 kg
[~2022-11-13 06:53] MED LIST changes: +SIMV-46 PO
[2022-11-13] MEDS ORDERED: ONDANSETRON HCL 4MG/2ML INJ IV ONE (08:15)
[2022-11-13] MEDS ORDERED: MORPHINE SULFATE 4 MG/ML CPJ (NOT FOR IM USE) IV ONE (08:15)
[2022-11-13 08:54] LABS: BASOPHILS % 0.3 % (0.0-2.0); HEMATOCRIT. 35.5 % (36.0-48.0); HEMOGLOBIN. 11.5 g/dL (12.0-16.0); LYMPHOCYTES % 18.4 % (20.0-50.0); MEAN CORPUSCULAR HEMOGLOBIN 27.1 pg (28.0-32.0); MEAN CORPUSCULAR VOLUME 83.6 fL (81.0-99.0); MEAN PLATELET VOLUME 9.1 fl (7.4-10.4); MONOCYTES % 7.9 % (2.0-8.0); NEUTROPHILS % 72.4 % (40.0-76.0); PLATELET 230 x1000/uL (130-400); RED BLOOD CELL COUNT 4.25 mill/uL (4.2-5.4); RED CELL DISTRIBUTION WIDTH 15.1 % (11.6-14.6)
[2022-11-13 09:01] LABS: CHLORIDE 106 mEq/L (98-107)
[2022-11-13] MEDS ORDERED: MORPHINE SULFATE 4 MG/ML CPJ (NOT FOR IM USE) IV NR (10:15)
[2022-11-13] MEDS ORDERED: ONDANSETRON HCL 4MG/2ML INJ IV NR (10:15)
[2022-11-13] MEDS ORDERED: CLONIDINE 0.1MG TABLET PO PRN (13:30)
[2022-11-13] MEDS ORDERED: IPRATROPIUM/ALBUTEROL 0.5-3(2.5)MG/3ML NEB HHN PRN (13:30)
[2022-11-13] MEDS ORDERED: DIPHENHYDRAMINE 50MG/ML VIAL IV PRN (13:30)
[2022-11-13] MEDS ORDERED: NALOXONE HCL 0.4MG/ML VIAL IV PRN (13:30)
[2022-11-13] MEDS ORDERED: ONDANSETRON HCL 4MG/2ML INJ IV PRN (13:30)
[2022-11-13] MEDS: MORPHINE SULFATE 2 MG/ML CPJ (NOT FOR IM USE) IV PRN ×2 (16:43→21:45)
[2022-11-13 20:00] VITALS: BP 115/58
[2022-11-13 20:22] VITALS: BP 116/49
[2022-11-14] VITALS: BP 123/61
[2022-11-14] MEDS ORDERED: ATOR10TA69 PO (00:26)
[2022-11-14] MEDS: MORPHINE SULFATE 2 MG/ML CPJ (NOT FOR IM USE) IV PRN ×4 (01:00→16:45)
[2022-11-14 04:00] VITALS: BP 124/58
[2022-11-14 07:40] VITALS: BP 133/69
[2022-11-14] MEDS: CLOPIDOGREL 75MG TABLET PO SCH (08:35)
[2022-11-14] MEDS: FUROSEMIDE 40MG TABLET PO SCH ×2 (08:35→20:39)
[2022-11-14] MEDS: ATORVASTATIN CALCIUM 10MG TABLET PO SCH (08:36)
[2022-11-14] MEDS ORDERED: ISOSORBIDE MONONITRATE 30MG TABLET SR 24HR PO SCH (09:00)
[2022-11-14 12:00] VITALS: BP 125/75
[2022-11-14] MEDS ORDERED: HYDROCODONE/ACETAMINOPHEN 5/325MG TABLET PO PRN (12:30)
[2022-11-14 16:00] VITALS: BP_SYST 103; BP_SYST 120; BP_DIAS 55; BP_DIAS 72
[2022-11-14] MEDS: ISOSORBIDE DINITRATE 30MG TABLET PO SCH (16:47)
[2022-11-14 20:00] VITALS: BP 114/57
[2022-11-14] MEDS ORDERED: ALBUTEROL (0.083%) 2.5MG/3ML NEB HHN PRN (20:30)
[2022-11-14] MEDS ORDERED: IPRATROPIUM BROMIDE (0.02%) 0.5MG/2.5ML NEB HHN PRN (20:30)
[2022-11-14] MEDS: CARVEDILOL 3.125 MG TABLET PO SCH (20:39)
[2022-11-15] VITALS: BP 136/73
[2022-11-15 04:00] VITALS: BP 127/57
[2022-11-15] MEDS: MORPHINE SULFATE 2 MG/ML CPJ (NOT FOR IM USE) IV PRN (04:23)
[2022-11-15 08:00] VITALS: BP 142/85
[2022-11-15] MEDS ORDERED: LOSARTAN POTASSIUM 50 MG TABLET PO SCH (09:00)
[2022-11-15] MEDS: CLOPIDOGREL 75MG TABLET PO SCH (09:02)
[2022-11-15] MEDS: FUROSEMIDE 40MG TABLET PO SCH (09:02)
[2022-11-15] MEDS: ISOSORBIDE DINITRATE 30MG TABLET PO SCH (09:03)
[2022-11-15] MEDS: CARVEDILOL 3.125 MG TABLET PO SCH (09:03)
[2022-11-15] MEDS: ATORVASTATIN CALCIUM 10MG TABLET PO SCH (09:03)
[2022-11-15 11:44] VITALS: BP 140/80
[2022-11-15 12:00] VITALS: BP 131/80
== END 2022-11-15 14:43 | disposition home or self-care (01) | DRG 203 ==
LOC: ER 06:59 → 7WST 13:11 → EDBEDREQ 13:20 → EDBEDREQTM 13:20 → ENRESERV 17:15 → 7WST 19:20 → ER 19:20
PROVIDERS: ADMIT Internal Medicine; ATTEND Internal Medicine
DX: M94.0 Chondrocostal junction syndrome [Tietze] (principal); I11.0 Hypertensive heart disease with heart failure; I50.22 Chronic systolic (congestive) heart failure; D64.9 Anemia, unspecified; E78.5 Hyperlipidemia, unspecified; E11.9 Type 2 diabetes mellitus without complications; Z20.822 Contact with and (suspected) exposure to COVID-19; I25.10 Atherosclerotic heart disease of native coronary artery without angina pectoris; J44.9 Chronic obstructive pulmonary disease, unspecified; Z95.810 Presence of automatic (implantable) cardiac defibrillator; Z82.49 Family history of ischemic heart disease and other diseases of the circulatory system; Z95.5 Presence of coronary angioplasty implant and graft; Z88.6 Allergy status to analgesic agent
CPT/HCPCS: 36415; 71045; 80053; 83880; 84484; 85025; 85379; 93005; 93306; 93970; 99285; J1200; J2270; J2405

== ENCOUNTER 2022-12-25 14:14 | Inpatient (IN) | payer MEDICAID ==
[~2022-12-25] VITALS: Ht 157.5 cm; Wt 129.7 kg
[~2022-12-25 14:14] MED LIST changes: +ATOR10TA69 PO; -SIMV-46 MT; -SIMV-46 PO
[2022-12-25] MEDS ORDERED: NITROGLYCERIN OINT 1GM/INCH UDPKT TD ONE (14:30)
[2022-12-25] MEDS ORDERED: ASPIRIN 81MG TABLET PO ONE (14:30)
[2022-12-25] MEDS ORDERED: FUROSEMIDE 40MG/4ML VIAL IV ONE (14:30)
[2022-12-25 14:45] LABS: BASOPHILS % 0.3 % (0.0-2.0); EOSINOPHILS % 0.7 % (0.0-5.0); HEMATOCRIT. 35.7 % (36.0-48.0); HEMOGLOBIN. 11.4 g/dL (12.0-16.0); LYMPHOCYTES % 27.1 % (20.0-50.0); MEAN CORPUSCULAR HEMOGLOBIN 27.4 pg (28.0-32.0); MEAN CORPUSCULAR VOLUME 85.9 fL (81.0-99.0); MONOCYTES % 11.1 % (2.0-8.0); NEUTROPHILS % 60.8 % (40.0-76.0); PLATELET 268 x1000/uL (130-400); RED BLOOD CELL COUNT 4.16 mill/uL (4.2-5.4); RED CELL DISTRIBUTION WIDTH 15.8 % (11.6-14.6)
[2022-12-25 14:52] LABS: CHLORIDE 109 mEq/L (98-107)
[2022-12-25] MEDS ORDERED: ONDANSETRON HCL 4MG/2ML INJ IV STA (15:45)
[2022-12-25] MEDS ORDERED: MORPHINE SULFATE 4 MG/ML CPJ (NOT FOR IM USE) IV STA (15:45)
[2022-12-25] MEDS ORDERED: CEFTRIAXONE 1GM PREMIX 50 ML IV ONE (16:00)
[2022-12-25] MEDS ORDERED: AZITHROMYCIN 500MG/250ML 250 ML IV ONE (16:00)
[2022-12-25 17:03] LABS: D-DIMER 0.29 mg/L FEU (<0.50); INR 1.1; PARTIAL THROMBOPLASTIN TIME 25.8 sec (23.4-31.0)
[2022-12-25 21:15] VITALS: BP 158/96
[2022-12-25] MEDS ORDERED: MECLIZINE 25MG TABLET PO PRN (23:00)
[2022-12-25] MEDS ORDERED: NITROGLYCERIN 0.4MG TABLET SL SL PRN (23:00)
[2022-12-25] MEDS ORDERED: NALOXONE HCL 0.4MG/ML VIAL IV PRN (23:15)
[2022-12-25] MEDS: LOSARTAN POTASSIUM 25 MG TABLET PO SCH (23:19)
[2022-12-25] MEDS: ISOSORBIDE MONONITRATE 30MG TABLET SR 24HR PO SCH (23:19)
[2022-12-25] MEDS: MORPHINE SULFATE 2 MG/ML CPJ (NOT FOR IM USE) IV PRN (23:19)
[2022-12-26] VITALS: BP 151/77
[2022-12-26 01:09] LABS: CLARITY URINE CLEAR (CLEAR); COLOR URINE YELLOW (YELLOW); KETONES URINE NEGATIVE (NEGATIVE); LEUKOCYTE ESTERASE URINE NEGATIVE (NEGATIVE); NITRITE URINE NEGATIVE (NEGATIVE); OCCULT BLOOD URINE NEGATIVE (NEGATIVE); PH URINE 6.5 (4.5-8.0); PROTEIN URINE NEGATIVE (NEGATIVE); SPECIFIC GRAVITY URINE 1.014 (1.005-1.030); UROBILINOGEN URINE 0.2 E.U./dL (0.2-1.0)
[2022-12-26 01:36] LABS: *AMPHETAMINES SCREEN URINE NEGATIVE (NEGATIVE); *BARBITURATES SCREEN URINE NEGATIVE (NEGATIVE); *BENZODIAZEPINES SCREEN URINE NEGATIVE (NEGATIVE); *COCAINE SCREEN URINE NEGATIVE (NEGATIVE); CANNABINOID URINE SCREEN NEGATIVE (NEGATIVE); METHADONE URINE SCREEN NEGATIVE (NEGATIVE); OPIATES URINE SCREEN PRESUMTIVE POSITIVE (NEGATIVE); PHENCYCLIDINE URINE SCREEN NEGATIVE (NEGATIVE)
[2022-12-26 01:44] LABS: CREATINE KINASE 46 IU/L (26-192); CREATINE KINASE MB FRACTION < 1.0 ng/mL (0.5-3.6)
[2022-12-26] MEDS: MORPHINE SULFATE 2 MG/ML CPJ (NOT FOR IM USE) IV PRN ×4 (05:45→23:24)
[2022-12-26] MEDS: FUROSEMIDE 40MG TABLET PO SCH ×2 (06:45→17:24)
[2022-12-26 08:30] VITALS: BP 142/71
[2022-12-26] MEDS ORDERED: ENOXAPARIN 40MG/0.4ML SYR SUBCUT SCH (09:00)
[2022-12-26] MEDS: ISOSORBIDE MONONITRATE 30MG TABLET SR 24HR PO SCH (09:57)
[2022-12-26] MEDS: CARVEDILOL 12.5MG TABLET PO SCH ×2 (09:57→21:01)
[2022-12-26] MEDS: CLOPIDOGREL 75MG TABLET PO SCH (09:58)
[2022-12-26] MEDS: ENOXAPARIN 40MG/0.4ML SYR SUBCUT SCH ×2 (09:58→21:01)
[2022-12-26] MEDS: LOSARTAN POTASSIUM 25 MG TABLET PO SCH (09:58)
[2022-12-26 12:00] VITALS: BP 152/152
[2022-12-26 16:00] VITALS: BP 146/95
[2022-12-26 17:14] LABS: CREATINE KINASE 35 IU/L (26-192); CREATINE KINASE MB FRACTION < 1.0 ng/mL (0.5-3.6)
[2022-12-26 20:00] VITALS: BP 143/75
[2022-12-26] MEDS: ZOLPIDEM TARTRATE 5MG TABLET PO PRN (21:00)
[2022-12-26] MEDS: ATORVASTATIN CALCIUM 10MG TABLET PO SCH (21:01)
[2022-12-27] VITALS: BP 140/80
[2022-12-27 04:00] VITALS: BP 150/88
[2022-12-27] MEDS: MORPHINE SULFATE 2 MG/ML CPJ (NOT FOR IM USE) IV PRN ×4 (05:11→22:35)
[2022-12-27] MEDS: FUROSEMIDE 40MG TABLET PO SCH ×2 (06:21→17:46)
[2022-12-27 08:00] VITALS: BP 143/63
[2022-12-27] MEDS: ENOXAPARIN 40MG/0.4ML SYR SUBCUT SCH ×2 (09:07→21:13)
[2022-12-27] MEDS: LOSARTAN POTASSIUM 25 MG TABLET PO SCH (09:07)
[2022-12-27] MEDS: CLOPIDOGREL 75MG TABLET PO SCH (09:07)
[2022-12-27] MEDS: ISOSORBIDE MONONITRATE 30MG TABLET SR 24HR PO SCH (09:07)
[2022-12-27] MEDS: CARVEDILOL 12.5MG TABLET PO SCH ×2 (09:07→21:13)
[2022-12-27 12:00] VITALS: BP 131/68
[2022-12-27 16:00] VITALS: BP 152/76
[2022-12-27 20:00] VITALS: BP 140/80
[2022-12-27] MEDS: ATORVASTATIN CALCIUM 10MG TABLET PO SCH (21:13)
[2022-12-27] MEDS: ZOLPIDEM TARTRATE 5MG TABLET PO PRN (21:13)
[2022-12-28] VITALS: BP 128/78
[2022-12-28 04:00] VITALS: BP 140/89
[2022-12-28] MEDS: MORPHINE SULFATE 2 MG/ML CPJ (NOT FOR IM USE) IV PRN (04:07)
[2022-12-28] MEDS: FUROSEMIDE 40MG TABLET PO SCH (06:15)
[2022-12-28 08:00] VITALS: BP 140/76
[2022-12-28] MEDS: CLOPIDOGREL 75MG TABLET PO SCH (09:05)
[2022-12-28] MEDS: LOSARTAN POTASSIUM 25 MG TABLET PO SCH (09:05)
[2022-12-28] MEDS: ISOSORBIDE MONONITRATE 30MG TABLET SR 24HR PO SCH (09:06)
[2022-12-28] MEDS: CARVEDILOL 12.5MG TABLET PO SCH (09:06)
[2022-12-28] MEDS: ENOXAPARIN 40MG/0.4ML SYR SUBCUT SCH (09:06)
[2022-12-28 11:48] VITALS: BP 140/76
[2023-01-24] MEDS ORDERED: TRAM50TA3 MT (11:59)
== END 2022-12-28 12:20 | disposition home or self-care (01) | DRG 203 ==
LOC: ER 14:37 → 7EST 18:57 → EDBEDREQTM 18:59 → EDBEDREQ 18:59 → ENRESERV 20:37
PROVIDERS: ADMIT Internal Medicine; ATTEND Internal Medicine
DX: M94.0 Chondrocostal junction syndrome [Tietze] (principal); I11.0 Hypertensive heart disease with heart failure; E44.1 Mild protein-calorie malnutrition; I50.42 Chronic combined systolic (congestive) and diastolic (congestive) heart failure; I25.10 Atherosclerotic heart disease of native coronary artery without angina pectoris; J44.9 Chronic obstructive pulmonary disease, unspecified; Z20.822 Contact with and (suspected) exposure to COVID-19; Z95.810 Presence of automatic (implantable) cardiac defibrillator; I25.2 Old myocardial infarction; Z95.5 Presence of coronary angioplasty implant and graft; Z82.49 Family history of ischemic heart disease and other diseases of the circulatory system; Z79.899 Other long term (current) drug therapy; Z79.02 Long term (current) use of antithrombotics/antiplatelets; Z88.6 Allergy status to analgesic agent
CPT/HCPCS: 36415; 71045; 80053; 80305; 81003; 82550; 82553; 83605; 83880; 84484; 85025; 85379; 87426; 93005; 99285; C9803; J0456; J0696; J1650; J1940; J2270; J2405

== ENCOUNTER 2023-01-30 01:44 | Emergency (ER) | payer MEDICAID ==
[~2023-01-30] VITALS: Ht 165.1 cm; Wt 110.0 kg
[~2023-01-30 01:44] MED LIST changes: +TRAM50TA3 MT
[2023-01-30 03:15] LABS: BASOPHILS % 0.5 % (0.0-2.0); HEMOGLOBIN. 12.4 g/dL (12.0-16.0); LYMPHOCYTES % 26.1 % (20.0-50.0); MEAN CORPUSCULAR VOLUME 86.1 fL (81.0-99.0); MONOCYTES % 9.9 % (2.0-8.0); NEUTROPHILS % 62.5 % (40.0-76.0); PLATELET 268 x1000/uL (130-400); RED BLOOD CELL COUNT 4.42 mill/uL (4.2-5.4); RED CELL DISTRIBUTION WIDTH 15.7 % (11.6-14.6)
[2023-01-30 03:18] LABS: CHLORIDE 109 mEq/L (98-107)
[2023-01-30] MEDS ORDERED: HYDROCODONE/ACETAMINOPHEN 5/325MG TABLET PO ONE (05:15)
[2023-01-30] MEDS ORDERED: HYDROCODONE/ACETAMINOPHEN 5/325MG TABLET PO NR (07:00)
[2023-01-30 07:05] VITALS: BP 165/98
== END 2023-01-30 07:20 | disposition home or self-care (01) ==
LOC: ER 01:44
DX: R07.89 Other chest pain (principal); I11.0 Hypertensive heart disease with heart failure; I50.9 Heart failure, unspecified; J44.9 Chronic obstructive pulmonary disease, unspecified; I25.2 Old myocardial infarction; Z79.899 Other long term (current) drug therapy; F12.10 Cannabis abuse, uncomplicated; F15.10 Other stimulant abuse, uncomplicated
CPT/HCPCS: 36415; 71045; 80053; 84484; 85025; 93005; 99285

== ENCOUNTER 2023-03-28 09:53 | Emergency (ER) | payer MEDICAID ==
[~2023-03-28] VITALS: Ht 160 cm; Wt 130.0 kg
[~2023-03-28 09:53] MED LIST changes: -ATOR10TA69 PO; +ATOR40TA70 MT; -CLOP-31 PO; +CLOP75TA33 MT; -LOSA25TA3 PO; -TRAM50TA3 MT
[2023-03-28 09:57] VITALS: BP 183/84; PULSE 81; RESP 16; TEMP 98.1; O2SAT 97
[2023-03-28 11:18] LABS: BASOPHILS % 0.4 % (0.0-2.0); EOSINOPHILS % 0.5 % (0.0-5.0); HEMATOCRIT. 37.9 % (36.0-48.0); LYMPHOCYTES % 26.4 % (20.0-50.0); MEAN CORPUSCULAR HEMOGLOBIN 27.1 pg (28.0-32.0); MEAN CORPUSCULAR HGB CONC 31.7 g/dL (31.0-37.0); MEAN CORPUSCULAR VOLUME 85.4 fL (81.0-99.0); MEAN PLATELET VOLUME 8.8 fl (7.4-10.4); NEUTROPHILS % 64.7 % (40.0-76.0); PLATELET 225 x1000/uL (130-400); RED BLOOD CELL COUNT 4.43 mill/uL (4.2-5.4); RED CELL DISTRIBUTION WIDTH 14.7 % (11.6-14.6); WHITE BLOOD COUNT 7.7 x1000/uL (4.5-11.0)
[2023-03-28 12:09] LABS: CHLORIDE 110 mEq/L (98-107); INDEX HEMOLYSI 1 (1-3); INDEX ICTERIC 1 (1-4); INDEX LIPEMIC 1 (1-3); POTASSIUM 3.2 mEq/L (3.5-5.1); SODIUM 143 mEq/L (136-145)
[2023-03-28 12:20] LABS: ALBUMIN 3.4 g/dL (3.4-5.0); ASPARTATE AMINOTRANSFERASE 14 IU/L (15-37); BILIRUBIN TOTAL 0.2 mg/dL (0.1-1.0); CALCIUM 8.4 mg/dL (8.5-10.1); CARBON DIOXIDE 27 mEq/L (21-32); CREATININE 0.6 mg/dL (0.6-1.3); GLUCOSE 98 mg/dL (70-105); PROTEIN TOTAL 7.9 g/dL (6.0-8.3); TROPONIN I HIGH SENSITIVITY 12 ng/L (<54); UREA NITROGEN BLOOD 10 mg/dL (7-21)
[2023-03-28 14:20] LABS: ALANINE AMINOTRANSFERASE 20 IU/L (13-61)
[2023-03-28 14:47] LABS: ETHANOL BLOOD < 10 mg/dL (-10)
== END 2023-03-28 12:24 | disposition left against medical advice (07) ==
LOC: ER 09:59
DX: R07.89 Other chest pain (principal); J44.1 Chronic obstructive pulmonary disease with (acute) exacerbation; I11.0 Hypertensive heart disease with heart failure; I50.9 Heart failure, unspecified; Z88.6 Allergy status to analgesic agent; Z79.899 Other long term (current) drug therapy
CPT/HCPCS: 80053; 80320; 85025; 84484; 36415; 71045; 93005; 99285; Z7610 ×2; G0480

== ENCOUNTER 2023-04-09 21:14 | Emergency (ER) | payer MEDICAID ==
[~2023-04-09] VITALS: Ht 170.2 cm; Wt 136.0 kg
[2023-04-09 21:20] VITALS: TEMP 97.9; O2SAT 99
[2023-04-09] MEDS ORDERED: MORPHINE SULFATE 4 MG/ML CPJ (NOT FOR IM USE) IV ONE (22:30)
[2023-04-09 22:51] LABS: BASOPHILS % 0.3 % (0.0-2.0); EOSINOPHILS % 0.7 % (0.0-5.0); HEMOGLOBIN. 13.3 g/dL (12.0-16.0); LYMPHOCYTES % 25.2 % (20.0-50.0); MEAN CORPUSCULAR HEMOGLOBIN 27.2 pg (28.0-32.0); MEAN CORPUSCULAR HGB CONC 32.5 g/dL (31.0-37.0); MEAN CORPUSCULAR VOLUME 83.6 fL (81.0-99.0); MEAN PLATELET VOLUME 8.7 fl (7.4-10.4); MONOCYTES % 7.5 % (2.0-8.0); NEUTROPHILS % 66.3 % (40.0-76.0); PLATELET 286 x1000/uL (130-400); RED CELL DISTRIBUTION WIDTH 15.1 % (11.6-14.6); WHITE BLOOD COUNT 6.7 x1000/uL (4.5-11.0)
[2023-04-09 22:56] LABS: CHLORIDE 110 mEq/L (98-107); INDEX HEMOLYSI 1 (1-3); INDEX ICTERIC 1 (1-4); INDEX LIPEMIC 1 (1-3); POTASSIUM 3.4 mEq/L (3.5-5.1); SODIUM 142 mEq/L (136-145)
[2023-04-09 22:59] LABS: INR 1.1; PARTIAL THROMBOPLASTIN TIME 27.4 sec (23.4-31.0); PROTHROMBIN TIME 11.9 sec (9.6-11.0)
[2023-04-09 23:02] LABS: ALANINE AMINOTRANSFERASE 18 IU/L (13-61); ALBUMIN 3.3 g/dL (3.4-5.0); ASPARTATE AMINOTRANSFERASE 11 IU/L (15-37); BILIRUBIN TOTAL 0.2 mg/dL (0.1-1.0); CALCIUM 8.6 mg/dL (8.5-10.1); CARBON DIOXIDE 26 mEq/L (21-32); CREATININE 0.6 mg/dL (0.6-1.3); GLUCOSE 101 mg/dL (70-105); PROTEIN TOTAL 7.9 g/dL (6.0-8.3); UREA NITROGEN BLOOD 9 mg/dL (7-21)
[2023-04-09 23:05] LABS: NT PRO B-TYPE NATRIURETIC PEP 125 pg/mL (5-125); TROPONIN I HIGH SENSITIVITY 30 ng/L (<54)
[2023-04-09 23:11] LABS: HCG SCREEN NEGATIVE
[2023-04-09] MEDS ORDERED: POTASSIUM CHLORIDE 20MEQ TABLET SR PO NR (23:15)
[2023-04-09 23:46] LABS: PHOSPHORUS 3.6 mg/dL (2.5-4.9)
[2023-04-10] MEDS ORDERED: MORPHINE SULFATE 4 MG/ML CPJ (NOT FOR IM USE) IV NR (02:00)
[2023-04-10] MEDS ORDERED: HYDROCODONE/ACETAMINOPHEN 10/325MG TABLET PO PRN (05:15)
[2023-04-10] MEDS ORDERED: MORPHINE SULFATE 2 MG/ML CPJ (NOT FOR IM USE) IV PRN (05:45)
[2023-04-10] MEDS ORDERED: NALOXONE HCL 0.4MG/ML VIAL IV PRN (10:15)
[2023-04-10] MEDS ORDERED: CLOPIDOGREL 75MG TABLET PO SCH (10:15)
[2023-04-10] MEDS ORDERED: FUROSEMIDE 40MG TABLET PO SCH (10:15)
[2023-04-10] MEDS ORDERED: ONDANSETRON HCL 4MG/2ML INJ IV PRN (10:15)
[2023-04-10] MEDS ORDERED: ACETAMINOPHEN 325MG TABLET PO PRN (10:15)
[2023-04-10] MEDS ORDERED: TRAMADOL 50MG TABLET PO PRN (10:15)
[2023-04-10] MEDS ORDERED: IPRATROPIUM/ALBUTEROL 0.5-3(2.5)MG/3ML NEB HHN PRN (10:15)
[2023-04-10] MEDS ORDERED: HYDRALAZINE 20MG/ML VIAL IV NR (14:15)
[2023-04-10] MEDS ORDERED: LOSARTAN POTASSIUM 100 MG TABLET PO NR (14:30)
[2023-04-10] MEDS ORDERED: POTASSIUM CHLORIDE 20MEQ TABLET SR PO NR (14:30)
[2023-04-10] MEDS ORDERED: AMLODIPINE 5MG TABLET PO SCH (14:30)
[2023-04-10 14:33] VITALS: BP 180/88; PULSE 89; RESP 12
[2023-04-10] MEDS ORDERED: ATORVASTATIN CALCIUM 20MG TABLET PO SCH (21:00)
== END 2023-04-10 14:51 | disposition short-term general hospital (02) ==
LOC: ER 21:27 → EDBEDREQ 04-10 04:06 → EDBEDREQTM 04-10 04:06 → CANBEDREQ 04-10 14:43 → ER 04-10 14:51
DX: R07.89 Other chest pain (principal); E87.6 Hypokalemia; R06.02 Shortness of breath; I11.0 Hypertensive heart disease with heart failure; I50.9 Heart failure, unspecified; J44.9 Chronic obstructive pulmonary disease, unspecified; I25.2 Old myocardial infarction; Z95.0 Presence of cardiac pacemaker; F15.10 Other stimulant abuse, uncomplicated; F12.10 Cannabis abuse, uncomplicated
CPT/HCPCS: 80053; 84703; 83880; 83690; 83735; 84100; 85025; 85610; 85730; 84484; 36415; 71045; 93005; 99285; 96374; 96375; 96376; J0360; J2270 ×2; Z7610 ×2

== ENCOUNTER 2023-06-05 18:28 | Emergency (ER) | payer MEDICAID ==
[~2023-06-05] VITALS: Ht 165.1 cm; Wt 104.0 kg
[~2023-06-05 18:28] MED LIST changes: -MECL-159 MT; +MECL-299 MT
[2023-06-05 18:34] VITALS: TEMP 98.3; O2SAT 98
[2023-06-05 21:28] LABS: EOSINOPHILS % 0.7 % (0.0-5.0); HEMATOCRIT. 38.8 % (36.0-48.0); HEMOGLOBIN. 12.3 g/dL (12.0-16.0); LYMPHOCYTES % 31.2 % (20.0-50.0); MEAN CORPUSCULAR HEMOGLOBIN 26.5 pg (28.0-32.0); MEAN CORPUSCULAR HGB CONC 31.8 g/dL (31.0-37.0); MEAN CORPUSCULAR VOLUME 83.3 fL (81.0-99.0); MEAN PLATELET VOLUME 8.9 fl (7.4-10.4); MONOCYTES % 9.4 % (2.0-8.0); NEUTROPHILS % 57.7 % (40.0-76.0); PLATELET 238 x1000/uL (130-400); RED BLOOD CELL COUNT 4.66 mill/uL (4.2-5.4); RED CELL DISTRIBUTION WIDTH 15.8 % (11.6-14.6); WHITE BLOOD COUNT 6.7 x1000/uL (4.5-11.0)
[2023-06-05 21:36] LABS: CHLORIDE 111 mEq/L (98-107); INDEX HEMOLYSI 1 (1-3); INDEX ICTERIC 1 (1-4); INDEX LIPEMIC 1 (1-3); POTASSIUM 3.4 mEq/L (3.5-5.1); SODIUM 141 mEq/L (136-145)
[2023-06-05 21:45] LABS: ALANINE AMINOTRANSFERASE 18 IU/L (13-61); ALBUMIN 3.2 g/dL (3.4-5.0); ASPARTATE AMINOTRANSFERASE 15 IU/L (15-37); BILIRUBIN TOTAL 0.3 mg/dL (0.1-1.0); CALCIUM 8.5 mg/dL (8.5-10.1); CARBON DIOXIDE 27 mEq/L (21-32); CREATININE 0.6 mg/dL (0.6-1.3); GLUCOSE 95 mg/dL (70-105); TROPONIN I HIGH SENSITIVITY 10 ng/L (<54); UREA NITROGEN BLOOD 10 mg/dL (7-21)
[2023-06-06] MEDS ORDERED: HYDROCODONE/ACETAMINOPHEN 5/325MG TABLET PO ONE ×2 (00:15→02:45)
[2023-06-06] MEDS ORDERED: POTASSIUM CHLORIDE 20MEQ TABLET SR PO ONE (00:30)
[2023-06-06 01:44] LABS: NT PRO B-TYPE NATRIURETIC PEP 131 pg/mL (5-125); TROPONIN I HIGH SENSITIVITY 9 ng/L (<54)
[2023-06-06] MEDS ORDERED: POTASSIUM CHLORIDE 20MEQ TABLET SR PO NR (02:45)
[2023-06-06] MEDS ORDERED: HYDROCODONE/ACETAMINOPHEN 5/325MG TABLET PO NR (03:00)
[2023-06-06 03:10] VITALS: BP 185/97; PULSE 90; RESP 16
== END 2023-06-06 03:12 | disposition home or self-care (01) ==
LOC: ER 18:28
DX: R07.89 Other chest pain (principal); I11.0 Hypertensive heart disease with heart failure; I50.9 Heart failure, unspecified; J44.9 Chronic obstructive pulmonary disease, unspecified; I25.2 Old myocardial infarction; Z79.899 Other long term (current) drug therapy
CPT/HCPCS: 36415; 71045; 80053; 83880; 84484; 85025; 93005; 99285

== ENCOUNTER 2023-10-01 03:43 | Emergency (ER) | payer MEDICAID, OTHER ==
[~2023-10-01] VITALS: Ht 165.1 cm; Wt 82.0 kg
[~2023-10-01 03:43] MED LIST changes: -ATOR40TA70 MT; +CLOP-31 MT; -CLOP75TA33 MT; +FURO-151 MT; -FURO-151 PO; -ISOS30TA91 MT; -MECL-299 MT; -NITR0.4T49 SL; -POTA-205 MT
[2023-10-01 03:51] VITALS: TEMP 98.1; O2SAT 98
[2023-10-01 04:35] LABS: BASOPHILS % 0.5 % (0.0-2.0); EOSINOPHILS % 0.6 % (0.0-5.0); HEMATOCRIT. 34.7 % (36.0-48.0); HEMOGLOBIN. 11.3 g/dL (12.0-16.0); LYMPHOCYTES % 26.1 % (20.0-50.0); MEAN CORPUSCULAR HEMOGLOBIN 27.2 pg (28.0-32.0); MEAN CORPUSCULAR HGB CONC 32.6 g/dL (31.0-37.0); MEAN CORPUSCULAR VOLUME 83.4 fL (81.0-99.0); MEAN PLATELET VOLUME 8.5 fl (7.4-10.4); NEUTROPHILS % 61.8 % (40.0-76.0); PLATELET 271 x1000/uL (130-400); RED BLOOD CELL COUNT 4.16 mill/uL (4.2-5.4); WHITE BLOOD COUNT 5.5 x1000/uL (4.5-11.0)
[2023-10-01 04:46] LABS: INR 1.1
[2023-10-01 04:48] LABS: ALANINE AMINOTRANSFERASE 8 IU/L (10-49); ALBUMIN 4.1 g/dL (3.2-4.8); ASPARTATE AMINOTRANSFERASE 15 IU/L (<34); BILIRUBIN TOTAL 0.2 mg/dL (0.1-1.0); CALCIUM 9.2 mg/dL (8.7-10.4); CARBON DIOXIDE 31 mEq/L (21-32); CHLORIDE 104 mEq/L (98-107); CREATININE 0.5 mg/dL (0.6-1.0); GLUCOSE 88 mg/dL (70-105); POTASSIUM 3.4 mEq/L (3.5-5.1); PROTEIN TOTAL 7.9 g/dL (6.0-8.3); SODIUM 140 mEq/L (136-145); UREA NITROGEN BLOOD 9 mg/dL (9-23)
[2023-10-01 05:06] LABS: ETHANOL BLOOD < 10 mg/dL (<10)
[2023-10-01] MEDS ORDERED: POLY17PO3 MT (06:15)
[2023-10-01 07:51] VITALS: BP 136/79; PULSE 75; RESP 16
== END 2023-10-01 07:53 | disposition home or self-care (01) ==
LOC: ER 03:50
DX: R10.9 Unspecified abdominal pain (principal); I11.0 Hypertensive heart disease with heart failure; I50.9 Heart failure, unspecified; K21.9 Gastro-esophageal reflux disease without esophagitis; E78.00 Pure hypercholesterolemia, unspecified; Z88.6 Allergy status to analgesic agent; I20.9 Angina pectoris, unspecified
CPT/HCPCS: 36415; 80053; 80320; 83605; 85025; 99283; G0480

== ENCOUNTER 2023-10-26 03:35 | Inpatient (IN) | payer MEDICAID ==
[~2023-10-26] VITALS: Ht 157.5 cm; Wt 125.2 kg
[~2023-10-26 03:35] MED LIST changes: -FURO-151 MT
[2023-10-26] MEDS ORDERED: ONDANSETRON HCL 4MG/2ML INJ IV SCH (05:21)
[2023-10-26] MEDS ORDERED: MORPHINE SULFATE 4 MG/ML CPJ (NOT FOR IM USE) IV SCH (05:21)
[2023-10-26 06:55] LABS: BASOPHILS % 0.2 % (0.0-2.0); EOSINOPHILS % 0.6 % (0.0-5.0); HEMATOCRIT. 37.9 % (36.0-48.0); MEAN CORPUSCULAR HEMOGLOBIN 26.8 pg (28.0-32.0); MEAN CORPUSCULAR HGB CONC 31.7 g/dL (31.0-37.0); MEAN CORPUSCULAR VOLUME 84.8 fL (81.0-99.0); MEAN PLATELET VOLUME 9.2 fl (7.4-10.4); MONOCYTES % 8.5 % (2.0-8.0); NEUTROPHILS % 71.7 % (40.0-76.0); PLATELET 227 x1000/uL (130-400); RED BLOOD CELL COUNT 4.47 mill/uL (4.2-5.4); RED CELL DISTRIBUTION WIDTH 15.5 % (11.6-14.6); WHITE BLOOD COUNT 7.7 x1000/uL (4.5-11.0)
[2023-10-26 07:06] LABS: ALANINE AMINOTRANSFERASE 8 IU/L (10-49); ALBUMIN 4.2 g/dL (3.2-4.8); ASPARTATE AMINOTRANSFERASE 15 IU/L (<34); BILIRUBIN TOTAL 0.3 mg/dL (0.1-1.0); CALCIUM 8.7 mg/dL (8.7-10.4); CARBON DIOXIDE 28 mEq/L (21-32); CHLORIDE 107 mEq/L (98-107); CREATININE 0.6 mg/dL (0.6-1.0); GLUCOSE 90 mg/dL (70-105); POTASSIUM 3.8 mEq/L (3.5-5.1); PROTEIN TOTAL 7.3 g/dL (6.0-8.3); SODIUM 143 mEq/L (136-145); TROPONIN I HIGH SENSITIVITY 7 ng/L (3.0-34); UREA NITROGEN BLOOD 12 mg/dL (9-23)
[2023-10-26 07:11] VITALS: O2SAT 97
[2023-10-26] MEDS ORDERED: ENOXAPARIN 40MG/0.4ML SYR SUBCUT SCH (08:15)
[2023-10-26] MEDS ORDERED: IPRATROPIUM/ALBUTEROL 0.5-3(2.5)MG/3ML NEB NEB PRN (08:15)
[2023-10-26] MEDS ORDERED: MAGNESIUM/ALUMINUM HYDROXIDE/SIMETHICONE 30ML UDC PO PRN (08:15)
[2023-10-26] MEDS ORDERED: ONDANSETRON HCL 4MG/2ML INJ IV PRN (08:15)
[2023-10-26] MEDS ORDERED: GUAIFENESIN 200MG/10ML SUGAR FREE UDC PO PRN (08:15)
[2023-10-26] MEDS ORDERED: DOCUSATE SODIUM 100MG CAPSULE PO PRN (08:15)
[2023-10-26] MEDS: AMLODIPINE 5MG TABLET PO SCH (08:19)
[2023-10-26 08:30] VITALS: BP 134/92; PULSE 84; RESP 20; TEMP 97.6
[2023-10-26 09:13] LABS: CHOLESTEROL 184 mg/dL (<200); HDL CHOLESTEROL 54 mg/dL (>65); IRON 40 ug/dL (50-170); LDL CHOLESTEROL 124 mg/dL (5-100); T4 FREE 1.23 ng/dL (0.89-1.76); THYROID STIMULATING HORMONE 1.24 uIU/mL (0.55-4.78); TOTAL IRON BINDING CAPACITY 428 ug/dl (250-425); TRIGLYCERIDE 121 mg/dL (0-150)
[2023-10-26 09:15] LABS: FOLIC ACID (FOLATE) SERUM > 20.00 ng/mL (>5.38); VITAMIN B12 SERUM 394 pg/mL (211-911)
[2023-10-26 09:31] VITALS: BP 134/92; PULSE 84; RESP 18; TEMP 96.7
[2023-10-26] MEDS: NITROGLYCERIN 0.4MG TABLET SL SL PRN (09:40)
[2023-10-26] MEDS: FAMOTIDINE 20MG TABLET PO SCH (09:41)
[2023-10-26] MEDS: CLOPIDOGREL 75MG TABLET PO SCH (09:41)
[2023-10-26] MEDS: LOSARTAN 50 MG TABLET PO SCH (09:41)
[2023-10-26] MEDS: ENOXAPARIN 40MG/0.4ML SYR SUBCUT SCH (09:42)
[2023-10-26] MEDS: INFLUENZA VACCINE IM SCH (11:10)
[2023-10-26 12:05] VITALS: BP 178/88; PULSE 86; RESP 20; TEMP 97.6
[2023-10-26] MEDS: CLONIDINE 0.1MG TABLET PO PRN (13:07)
[2023-10-26 16:04] VITALS: BP 152/90; PULSE 84; RESP 16; TEMP 99
[2023-10-26 16:58] LABS: CREATINE KINASE MB FRACTION 0.6 ng/mL (0.5-3.6)
[2023-10-26 20:00] VITALS: BP 188/99; PULSE 93; RESP 20; TEMP 98.2
[2023-10-26] MEDS ORDERED: LIDOCAINE 5% PATCH TOP PRN (21:30)
[2023-10-26] MEDS: ZOLPIDEM TARTRATE 5MG TABLET PO PRN (23:42)
[2023-10-26] MEDS: ATORVASTATIN CALCIUM 40MG TABLET PO SCH (23:42)
[2023-10-27] VITALS: BP 177/103; PULSE 101; RESP 20; TEMP 97.6
[2023-10-27 01:10] LABS: CREATINE KINASE 37 IU/L (34-145); CREATINE KINASE MB FRACTION < 0.5 ng/mL (0.5-3.6); TROPONIN I HIGH SENSITIVITY 8 ng/L (3.0-34)
[2023-10-27 04:00] VITALS: BP 143/68; PULSE 94; RESP 22; TEMP 97.5
[2023-10-27 05:57] LABS: TROPONIN I HIGH SENSITIVITY 9 ng/L (3.0-34)
[2023-10-27 05:59] LABS: PHOSPHORUS 2.7 mg/dL (2.5-4.9); TROPONIN I HIGH SENSITIVITY 8 ng/L (3.0-34)
[2023-10-27 06:32] LABS: BASOPHILS % 0.2 % (0.0-2.0); EOSINOPHILS % 0.3 % (0.0-5.0); HEMATOCRIT. 37.4 % (36.0-48.0); HEMOGLOBIN. 12.1 g/dL (12.0-16.0); LYMPHOCYTES % 25.2 % (20.0-50.0); MEAN CORPUSCULAR HGB CONC 32.4 g/dL (31.0-37.0); MEAN CORPUSCULAR VOLUME 83.4 fL (81.0-99.0); MEAN PLATELET VOLUME 9.3 fl (7.4-10.4); MONOCYTES % 10.3 % (2.0-8.0); PLATELET 216 x1000/uL (130-400); RED BLOOD CELL COUNT 4.48 mill/uL (4.2-5.4); RED CELL DISTRIBUTION WIDTH 15.5 % (11.6-14.6); WHITE BLOOD COUNT 8.4 x1000/uL (4.5-11.0)
[2023-10-27 08:00] VITALS: BP 167/92; PULSE 93; RESP 20; TEMP 98.7
[2023-10-27] MEDS: CLONIDINE HCL 0.1MG/24HR PATCH TD SCH (08:59)
[2023-10-27] MEDS: AMLODIPINE 10MG TABLET PO SCH (08:59)
[2023-10-27 12:00] VITALS: BP 157/100; PULSE 80; RESP 20; TEMP 98.2
[2023-10-27] MEDS ORDERED: CARVEDILOL 12.5MG TABLET PO SCH (21:00)
== END 2023-10-27 17:47 | disposition left against medical advice (07) | DRG 198 ==
LOC: ER 03:35 → 8WST 08:05
PROVIDERS: ADMIT Internal Medicine; ATTEND Internal Medicine
DX: R07.89 Other chest pain (principal); I25.10 Atherosclerotic heart disease of native coronary artery without angina pectoris; I11.0 Hypertensive heart disease with heart failure; Z68.43 Body mass index [BMI] 50.0-59.9, adult; I50.22 Chronic systolic (congestive) heart failure; Z53.29 Procedure and treatment not carried out because of patient's decision for other reasons; E11.9 Type 2 diabetes mellitus without complications; E66.01 Morbid (severe) obesity due to excess calories; E78.5 Hyperlipidemia, unspecified; J44.9 Chronic obstructive pulmonary disease, unspecified; Z79.02 Long term (current) use of antithrombotics/antiplatelets; Z79.899 Other long term (current) drug therapy; Z88.6 Allergy status to analgesic agent; Z95.810 Presence of automatic (implantable) cardiac defibrillator
CPT/HCPCS: 36415; 71045; 80053; 80061; 82550; 82553; 82607; 82746; 83036; 83540; 83550; 83735; 84100; 84439; 84443; 84484; 85025; 90686; 93005; 93306; 93970; 97165; 97535; 99285; J1650

== ENCOUNTER 2023-11-24 06:09 | Emergency (ER) | payer MEDICAID ==
[~2023-11-24] VITALS: Ht 167.6 cm; Wt 100.0 kg
[2023-11-24 06:15] VITALS: O2SAT 97
[2023-11-24 07:31] LABS: BASOPHILS % 0.4 % (0.0-2.0); EOSINOPHILS % 0.5 % (0.0-5.0); HEMATOCRIT. 38.6 % (36.0-48.0); HEMOGLOBIN. 12.2 g/dL (12.0-16.0); LYMPHOCYTES % 24.7 % (20.0-50.0); MEAN CORPUSCULAR HEMOGLOBIN 26.8 pg (28.0-32.0); MEAN CORPUSCULAR HGB CONC 31.7 g/dL (31.0-37.0); MEAN CORPUSCULAR VOLUME 84.5 fL (81.0-99.0); MEAN PLATELET VOLUME 9.1 fl (7.4-10.4); MONOCYTES % 10.2 % (2.0-8.0); NEUTROPHILS % 64.2 % (40.0-76.0); PLATELET 247 x1000/uL (130-400); RED BLOOD CELL COUNT 4.56 mill/uL (4.2-5.4); RED CELL DISTRIBUTION WIDTH 15.1 % (11.6-14.6)
[2023-11-24] MEDS: ASPIRIN 81MG TABLET PO ONE (07:43)
[2023-11-24] MEDS: MORPHINE SULFATE 4 MG/ML INJ (FOR IV/IM USE) IV STA ×2 (07:43→10:32)
[2023-11-24] MEDS: ONDANSETRON HCL 4MG/2ML INJ IV STA (07:43)
[2023-11-24 07:58] LABS: ALANINE AMINOTRANSFERASE 9 IU/L (10-49); ALBUMIN 4.1 g/dL (3.2-4.8); ASPARTATE AMINOTRANSFERASE 18 IU/L (<34); BILIRUBIN TOTAL 0.2 mg/dL (0.1-1.0); CALCIUM 8.7 mg/dL (8.7-10.4); CARBON DIOXIDE 29 mEq/L (21-32); CHLORIDE 105 mEq/L (98-107); CREATININE 0.6 mg/dL (0.6-1.0); GLUCOSE 87 mg/dL (70-105); POTASSIUM 3.2 mEq/L (3.5-5.1); PROTEIN TOTAL 7.5 g/dL (6.0-8.3); SODIUM 141 mEq/L (136-145); TROPONIN I HIGH SENSITIVITY 8 ng/L (3.0-34); UREA NITROGEN BLOOD 6 mg/dL (9-23)
[2023-11-24 10:23] LABS: TROPONIN I HIGH SENSITIVITY 7 ng/L (3.0-34)
[2023-11-24] MEDS: FUROSEMIDE 40MG/4ML VIAL IVP SCH (10:57)
[2023-11-24] MEDS: AMLODIPINE 5MG TABLET PO NR (10:58)
[2023-11-24 13:15] VITALS: BP 138/87; PULSE 95; RESP 22; TEMP 98.7
[2023-11-25] MEDS ORDERED: AMLODIPINE 10MG TABLET PO SCH (09:00)
== END 2023-11-24 13:20 | disposition home or self-care (01) ==
LOC: ER 06:15 → EDBEDREQTM 08:25 → EDBEDREQ 08:25 → ER 13:20
DX: R07.89 Other chest pain (principal); I25.2 Old myocardial infarction; I10 Essential (primary) hypertension; E11.9 Type 2 diabetes mellitus without complications; Z86.79 Personal history of other diseases of the circulatory system; Z88.6 Allergy status to analgesic agent; Z98.890 Other specified postprocedural states
CPT/HCPCS: 80053; 83880; 83690; 85025; 85379; 84484; 36415; 71045; 93005; 96374; 96375; 96376; 99285; Z7610 ×5; J1940; J2405; J2270

== ENCOUNTER 2023-12-13 18:38 | Emergency (ER) | payer MEDICAID ==
[~2023-12-13] VITALS: Ht 165.1 cm; Wt 130.0 kg
[2023-12-13 18:45] VITALS: O2SAT 100
[2023-12-13 19:52] LABS: BASOPHILS % 0.6 % (0.0-2.0); EOSINOPHILS % 3.1 % (0.0-5.0); HEMATOCRIT. 39.6 % (36.0-48.0); HEMOGLOBIN. 12.6 g/dL (12.0-16.0); LYMPHOCYTES % 23.2 % (20.0-50.0); MEAN CORPUSCULAR HEMOGLOBIN 26.6 pg (28.0-32.0); MEAN CORPUSCULAR HGB CONC 31.9 g/dL (31.0-37.0); MEAN CORPUSCULAR VOLUME 83.4 fL (81.0-99.0); MEAN PLATELET VOLUME 8.8 fl (7.4-10.4); MONOCYTES % 9.4 % (2.0-8.0); NEUTROPHILS % 63.7 % (40.0-76.0); PLATELET 249 x1000/uL (130-400); RED BLOOD CELL COUNT 4.75 mill/uL (4.2-5.4); RED CELL DISTRIBUTION WIDTH 15.4 % (11.6-14.6); WHITE BLOOD COUNT 6.9 x1000/uL (4.5-11.0)
[2023-12-13 19:58] LABS: CHLORIDE 108 mEq/L (98-107); POTASSIUM 3.9 mEq/L (3.5-5.1); SODIUM 143 mEq/L (136-145)
[2023-12-13 19:59] LABS: CALCIUM 9.1 mg/dL (8.7-10.4); CARBON DIOXIDE 30 mEq/L (21-32)
[2023-12-13 20:04] LABS: CREATININE 0.8 mg/dL (0.6-1.0); GLUCOSE 92 mg/dL (70-105); UREA NITROGEN BLOOD 10 mg/dL (9-23)
[2023-12-13 20:05] LABS: ALANINE AMINOTRANSFERASE 11 IU/L (10-49); ASPARTATE AMINOTRANSFERASE 14 IU/L (<34); TROPONIN I HIGH SENSITIVITY 9 ng/L (3.0-34)
[2023-12-13 20:06] LABS: ALBUMIN 4.3 g/dL (3.2-4.8); BILIRUBIN TOTAL 0.3 mg/dL (0.1-1.0); PROTEIN TOTAL 8.5 g/dL (6.0-8.3)
[2023-12-13] MEDS: MORPHINE SULFATE 4 MG/ML INJ (FOR IV/IM USE) IM STA (20:54)
[2023-12-13 22:27] VITALS: BP 128/78; PULSE 77; RESP 18; TEMP 98.6
== END 2023-12-14 02:47 | disposition home or self-care (01) ==
LOC: ER 18:38
DX: R07.89 Other chest pain (principal); I25.10 Atherosclerotic heart disease of native coronary artery without angina pectoris; E11.9 Type 2 diabetes mellitus without complications; I10 Essential (primary) hypertension; I25.2 Old myocardial infarction; Z95.0 Presence of cardiac pacemaker
CPT/HCPCS: 99285; 71045; 80053; 83880; 85025; 84484; 36415; 93005; 96372; J2270

== ENCOUNTER 2024-06-08 18:20 | Emergency (ER) | payer MEDICAID, OTHER ==
[~2024-06-08] VITALS: Ht 167.6 cm; Wt 127.0 kg
[~2024-06-08 18:20] MED LIST changes: +ASPI-1406 PO; +CARV12.545 PO; -CLOP-31 MT; +CLOP75TA33 PO; -COR12 PO; +COR6 MT; +CYCL10TA21 PO; +DAPA10TA PO; +EMPA10TA PO; +FURO-151 MT; +FURO40TA5 PO; +ISOS10TA2 PO; +LIDVISBULK PO; +LIP40 MT; +LOSA50TA41 MT; +NITR0.4T49 SL; +SPIR25TA6 PO
[2024-06-08 18:23] VITALS: O2SAT 99
[2024-06-08 19:23] LABS: BASOPHILS % 0.6 % (0.0-2.0); EOSINOPHILS % 0.4 % (0.0-5.0); HEMATOCRIT. 38.9 % (36.0-48.0); HEMOGLOBIN. 12.4 g/dL (12.0-16.0); LYMPHOCYTES % 19.4 % (20.0-50.0); MEAN CORPUSCULAR HEMOGLOBIN 27.2 pg (28.0-32.0); MEAN CORPUSCULAR HGB CONC 31.8 g/dL (31.0-37.0); MEAN CORPUSCULAR VOLUME 85.6 fL (81.0-99.0); MONOCYTES % 11.7 % (2.0-8.0); NEUTROPHILS % 67.9 % (40.0-76.0); PLATELET 289 x1000/uL (130-400); RED BLOOD CELL COUNT 4.54 mill/uL (4.2-5.4); RED CELL DISTRIBUTION WIDTH 15.6 % (11.6-14.6); WHITE BLOOD COUNT 7.1 x1000/uL (4.5-11.0)
[2024-06-08 19:28] LABS: CHLORIDE 106 mEq/L (98-107); POTASSIUM 4.2 mEq/L (3.5-5.1); SODIUM 142 mEq/L (136-145)
[2024-06-08 19:29] LABS: CARBON DIOXIDE 28 mEq/L (21-32)
[2024-06-08 19:30] LABS: CALCIUM 9.2 mg/dL (8.7-10.4)
[2024-06-08 19:34] LABS: CREATININE 0.8 mg/dL (0.6-1.0); GLUCOSE 88 mg/dL (70-105); UREA NITROGEN BLOOD 11 mg/dL (9-23)
[2024-06-08 19:37] LABS: TROPONIN I HIGH SENSITIVITY 8 ng/L (3.0-34)
[2024-06-08 21:45] LABS: INR 1.1; PARTIAL THROMBOPLASTIN TIME 25.7 sec (23.4-31.0); PROTHROMBIN TIME 12.4 sec (9.6-11.0)
[2024-06-08 21:48] LABS: TROPONIN I HIGH SENSITIVITY 9 ng/L (3.0-34)
[2024-06-08 22:53] VITALS: TEMP 36.78072; O2SAT 100
[2024-06-08 23:16] VITALS: BP 159/70; PULSE 83; RESP 16
[2024-06-08] MEDS: MORPHINE SULFATE 4 MG/ML INJ (FOR IV/IM USE) IV ONE (23:16)
== END 2024-06-08 23:31 | disposition short-term general hospital (02) ==
LOC: ER 18:20 → EDBEDREQ 20:59 → ER 23:31
DX: R07.89 Other chest pain (principal); I25.10 Atherosclerotic heart disease of native coronary artery without angina pectoris; I25.2 Old myocardial infarction; E11.9 Type 2 diabetes mellitus without complications; I11.0 Hypertensive heart disease with heart failure; E78.00 Pure hypercholesterolemia, unspecified; Z79.899 Other long term (current) drug therapy; Z79.84 Long term (current) use of oral hypoglycemic drugs; Z88.6 Allergy status to analgesic agent; Z79.82 Long term (current) use of aspirin; Z79.02 Long term (current) use of antithrombotics/antiplatelets; J45.909 Unspecified asthma, uncomplicated
CPT/HCPCS: 80048; 83880; 85025; 85610; 85730; 84484; 36415; 71045; 93005; 96374; 99291; J2270; Z7610 ×2

== ENCOUNTER 2024-06-25 03:48 | Emergency (ER) | payer OTHER ==
[~2024-06-25] VITALS: Ht 165.1 cm; Wt 130.0 kg
[2024-06-25 03:57] VITALS: TEMP 98.2; O2SAT 96
[2024-06-25 04:27] LABS: BASOPHILS % 0.1 % (0.0-2.0); DIFFERENTIAL COMMENT 0; EOSINOPHILS % 1.6 % (0.0-5.0); HEMATOCRIT. 42.6 % (36.0-48.0); MEAN CORPUSCULAR HEMOGLOBIN 26.3 pg (28.0-32.0); MEAN CORPUSCULAR HGB CONC 30.4 g/dL (31.0-37.0); MEAN CORPUSCULAR VOLUME 86.6 fL (81.0-99.0); MEAN PLATELET VOLUME 8.8 fl (7.4-10.4); MONOCYTES % 8.2 % (2.0-8.0); NEUTROPHILS % 66.1 % (40.0-76.0); PLATELET 224 x1000/uL (130-400); RED BLOOD CELL COUNT 4.92 mill/uL (4.2-5.4); RED CELL DISTRIBUTION WIDTH 15.7 % (11.6-14.6); WHITE BLOOD COUNT 6.5 x1000/uL (4.5-11.0)
[2024-06-25 04:33] LABS: CARBON DIOXIDE 30 mEq/L (21-32); CHLORIDE 107 mEq/L (98-107); POTASSIUM 3.6 mEq/L (3.5-5.1); SODIUM 142 mEq/L (136-145)
[2024-06-25 04:34] LABS: CALCIUM 9.5 mg/dL (8.7-10.4)
[2024-06-25 04:38] LABS: CREATININE 0.8 mg/dL (0.6-1.0)
[2024-06-25 04:39] LABS: GLUCOSE 92 mg/dL (70-105); TROPONIN I HIGH SENSITIVITY 9 ng/L (3.0-34); UREA NITROGEN BLOOD 9 mg/dL (9-23)
[2024-06-25 04:40] LABS: ALANINE AMINOTRANSFERASE < 7 IU/L (10-49); ALBUMIN 4.4 g/dL (3.2-4.8); ASPARTATE AMINOTRANSFERASE 13 IU/L (<34)
[2024-06-25 04:41] LABS: BILIRUBIN TOTAL 0.3 mg/dL (0.1-1.0); PROTEIN TOTAL 7.7 g/dL (6.0-8.3)
[2024-06-25 05:04] LABS: BILIRUBIN DIRECT < 0.1 mg/dL (<=3.0)
[2024-06-25 05:34] LABS: INR 1.1
[2024-06-25] MEDS: MORPHINE SULFATE 4 MG/ML INJ (FOR IV/IM USE) IV ONE (06:51)
[2024-06-25 10:15] VITALS: BP 172/93; PULSE 85; RESP 20; O2SAT 95
== END 2024-06-25 10:27 ==
LOC: ER 03:48
DX: I11.0 Hypertensive heart disease with heart failure (principal); I50.9 Heart failure, unspecified; E11.9 Type 2 diabetes mellitus without complications; Z88.6 Allergy status to analgesic agent; Z79.899 Other long term (current) drug therapy
CPT/HCPCS: 99291; 96374; 80076; 80048; 83880; 83690; 85025; 85610; 84484; 36415; 71045; 93005; J2270

== ENCOUNTER 2024-09-08 07:18 | Emergency (ER) | payer MEDICAID ==
[~2024-09-08] VITALS: Ht 170.2 cm; Wt 105.0 kg
[2024-09-08 07:23] VITALS: BP 185/80; PULSE 87; RESP 16; O2SAT 99
[2024-09-08] MEDS: HYDROCODONE/ACETAMINOPHEN 5/325MG TABLET PO STA (07:50)
== END 2024-09-08 08:00 | disposition home or self-care (01) ==
LOC: ER 07:30
DX: R07.89 Other chest pain (principal); E11.9 Type 2 diabetes mellitus without complications; I11.0 Hypertensive heart disease with heart failure; I50.9 Heart failure, unspecified; Z76.5 Malingerer [conscious simulation]; Z79.899 Other long term (current) drug therapy; Z82.49 Family history of ischemic heart disease and other diseases of the circulatory system; Z88.6 Allergy status to analgesic agent; Z95.0 Presence of cardiac pacemaker
CPT/HCPCS: 93005; 99283

== ENCOUNTER 2024-12-27 04:08 | Inpatient (IN) | payer MEDICAID ==
[~2024-12-27] VITALS: Ht 167.6 cm; Wt 136.1 kg
[~2024-12-27 04:08] MED LIST changes: +ASPI-1406 MT; -ASPI-1406 PO; +CLOP-31 MT; -CLOP75TA33 PO; -COR6 MT; -CYCL10TA21 PO; -DAPA10TA PO; -FURO-151 MT; -LIDVISBULK PO; -NITR0.4T49 SL; +PANT40TA51 MT
[2024-12-27 05:12] LABS: BASOPHILS % 0.7 % (0.0-2.0); EOSINOPHILS % 0.5 % (0.0-5.0); HEMATOCRIT. 36.8 % (36.0-48.0); HEMOGLOBIN. 11.4 g/dL (12.0-16.0); LYMPHOCYTES % 19.4 % (20.0-50.0); MEAN CORPUSCULAR HEMOGLOBIN 25.4 pg (28.0-32.0); MEAN CORPUSCULAR HGB CONC 31.1 g/dL (31.0-37.0); MEAN CORPUSCULAR VOLUME 81.6 fL (81.0-99.0); MEAN PLATELET VOLUME 9.1 fl (7.4-10.4); MONOCYTES % 9.5 % (2.0-8.0); NEUTROPHILS % 69.9 % (40.0-76.0); PLATELET 276 x1000/uL (130-400); RED BLOOD CELL COUNT 4.51 mill/uL (4.2-5.4); RED CELL DISTRIBUTION WIDTH 15.7 % (11.6-14.6); WHITE BLOOD COUNT 9.3 x1000/uL (4.5-11.0)
[2024-12-27 05:28] LABS: CHLORIDE 106 mEq/L (98-107); POTASSIUM 4.3 mEq/L (3.5-5.1); SODIUM 141 mEq/L (136-145)
[2024-12-27 05:29] LABS: CALCIUM 8.8 mg/dL (8.7-10.4); CARBON DIOXIDE 28 mEq/L (21-32)
[2024-12-27 05:34] LABS: CREATININE 0.8 mg/dL (0.6-1.0); GLUCOSE 112 mg/dL (70-105); UREA NITROGEN BLOOD 16 mg/dL (9-23)
[2024-12-27 05:35] LABS: ETHANOL BLOOD < 10 mg/dL (<10); TROPONIN I HIGH SENSITIVITY 12 ng/L (3.0-34)
[2024-12-27 05:40] LABS: INR 1.1; PARTIAL THROMBOPLASTIN TIME 25.8 sec (23.4-31.0); PROTHROMBIN TIME 11.8 sec (9.6-11.0)
[2024-12-27] MEDS: MORPHINE SULFATE 4 MG/ML INJ (FOR IV/IM USE) IV ONE (05:48)
[2024-12-27 06:50] LABS: TROPONIN I HIGH SENSITIVITY 14 ng/L (3.0-34)
[2024-12-27 07:45] VITALS: BP 139/78; PULSE 80; RESP 20; TEMP 36.6
[2024-12-27] MEDS ORDERED: DOCUSATE SODIUM 100MG CAPSULE PO PRN (08:15)
[2024-12-27] MEDS ORDERED: ACETAMINOPHEN 325MG TABLET PO PRN ×2 (08:15)
[2024-12-27] MEDS ORDERED: NITROGLYCERIN 0.4MG TABLET SL SL PRN (08:15)
[2024-12-27] MEDS ORDERED: IPRATROPIUM/ALBUTEROL 0.5-3(2.5)MG/3ML NEB HHN PRN (08:15)
[2024-12-27] MEDS ORDERED: ONDANSETRON HCL 4MG/2ML INJ IV PRN (08:15)
[2024-12-27] MEDS ORDERED: MAGNESIUM/ALUMINUM HYDROXIDE/SIMETHICONE 30ML UDC PO PRN (08:15)
[2024-12-27] MEDS ORDERED: GUAIFENESIN 200MG/10ML SUGAR FREE UDC PO PRN (08:15)
[2024-12-27] MEDS ORDERED: HYDROCODONE/ACETAMINOPHEN 5/325MG TABLET PO PRN (08:15)
[2024-12-27] MEDS ORDERED: CLONIDINE 0.1MG TABLET PO PRN (08:15)
[2024-12-27] MEDS ORDERED: TRAMADOL 50MG TABLET PO PRN (09:45)
[2024-12-27] MEDS: PANTOPRAZOLE 40MG DR TABLET PO SCH (10:02)
[2024-12-27] MEDS: ASPIRIN 81MG EC TABLET PO SCH (10:02)
[2024-12-27] MEDS: FUROSEMIDE 40MG/4ML VIAL IV SCH (10:02)
[2024-12-27] MEDS: CLOPIDOGREL 75MG TABLET PO SCH (10:02)
[2024-12-27] MEDS: ENOXAPARIN 40MG/0.4ML SYR SUBCUT SCH (10:02)
[2024-12-27] MEDS: SPIRONOLACTONE 25MG TABLET PO SCH (10:03)
[2024-12-27] MEDS: EMPAGLIFLOZIN 10MG TABLET PO SCH (10:04)
[2024-12-27] MEDS: LOSARTAN 50 MG TABLET PO SCH (10:04)
[2024-12-27] MEDS: ISOSORBIDE DINITRATE 10MG TABLET PO SCH (10:04)
[2024-12-27] MEDS: CARVEDILOL 12.5MG TABLET PO SCH (10:06)
[2024-12-27] MEDS: ATORVASTATIN CALCIUM 40MG TABLET PO SCH (10:06)
[2024-12-27] MEDS: MORPHINE SULFATE 2 MG/ML INJ (NOT FOR IM USE) IV PRN (10:15)
[2024-12-27 12:00] VITALS: BP 140/75; PULSE 80; RESP 20; TEMP 36.4; O2SAT 100
[2024-12-27 12:25] LABS: CHLORIDE 107 mEq/L (98-107); POTASSIUM 4.3 mEq/L (3.5-5.1); SODIUM 142 mEq/L (136-145)
[2024-12-27 12:26] LABS: CALCIUM 9.1 mg/dL (8.7-10.4); CARBON DIOXIDE 30 mEq/L (21-32)
[2024-12-27 12:30] LABS: IRON 32 ug/dL (50-170); TROPONIN I HIGH SENSITIVITY 11 ng/L (3.0-34)
[2024-12-27 12:31] LABS: CREATININE 0.8 mg/dL (0.6-1.0); GLUCOSE 96 mg/dL (70-105); UREA NITROGEN BLOOD 15 mg/dL (9-23)
[2024-12-27 12:33] LABS: TOTAL IRON BINDING CAPACITY 346 ug/dl (250-425)
[2024-12-27 12:35] LABS: FOLIC ACID (FOLATE) SERUM 10.48 ng/mL (>5.38)
[2024-12-27 12:36] LABS: FERRITIN 20 ng/mL (10-291); VITAMIN B12 SERUM 301 pg/mL (211-911)
[2024-12-27] MEDS ORDERED: METHYLPREDNISOLONE SOD SUCC 125MG/2ML (ACT-O-VIAL) IV SCH (14:00)
[2024-12-27] MEDS ORDERED: METHYLPREDNISOLONE SOD SUCC 40MG/ML (ACT-O-VIAL) IV SCH (15:00)
[2024-12-27 16:00] VITALS: BP 127/73; PULSE 75; RESP 20; TEMP 36.6; O2SAT 98
[2024-12-27 16:36] VITALS: RESP 20
[2024-12-27 17:05] VITALS: BP 127/73; PULSE 75; TEMP 97.9; O2SAT 98
== END 2024-12-27 19:20 | disposition short-term general hospital (02) | DRG 194 ==
LOC: ER 04:08 → EDBEDREQ 04:23 → 8WST 06:02 → EDBEDREQ 06:05 → ENRESERV 06:57
PROVIDERS: ADMIT Internal Medicine; ATTEND Internal Medicine
DX: I11.0 Hypertensive heart disease with heart failure (principal); Z79.01 Long term (current) use of anticoagulants; D64.9 Anemia, unspecified; I50.23 Acute on chronic systolic (congestive) heart failure; J44.9 Chronic obstructive pulmonary disease, unspecified; I25.10 Atherosclerotic heart disease of native coronary artery without angina pectoris; I25.2 Old myocardial infarction; Z79.899 Other long term (current) drug therapy; Z79.82 Long term (current) use of aspirin; Z88.6 Allergy status to analgesic agent; Z95.810 Presence of automatic (implantable) cardiac defibrillator; E66.9 Obesity, unspecified; Z68.42 Body mass index [BMI] 45.0-49.9, adult
CPT/HCPCS: 36415; 71045; 80048; 80320; 82607; 82728; 82746; 83540; 83550; 83880; 84484; 85025; 93005; 97166; 99291; J1650; J1940; J2270; G0480

== ENCOUNTER 2025-03-15 02:46 | Emergency (ER) | payer BC, MEDICAID ==
[~2025-03-15] VITALS: Ht 170.2 cm; Wt 150.0 kg
[2025-03-15 03:12] VITALS: O2SAT 100
[2025-03-15 03:48] LABS: BASOPHILS % 0.4 % (0.0-2.0); EOSINOPHILS % 0.3 % (0.0-5.0); HEMATOCRIT. 38.7 % (36.0-48.0); HEMOGLOBIN. 12.3 g/dL (12.0-16.0); LYMPHOCYTES % 27.1 % (20.0-50.0); MEAN PLATELET VOLUME 9.0 fl (7.4-10.4); MONOCYTES % 12.2 % (2.0-8.0); NEUTROPHILS % 60.0 % (40.0-76.0); PLATELET 228 x1000/uL (130-400); RED BLOOD CELL COUNT 4.81 mill/uL (4.2-5.4); RED CELL DISTRIBUTION WIDTH 18.3 % (11.6-14.6)
[2025-03-15 03:59] LABS: CREATININE 0.8 mg/dL (0.6-1.0); ETHANOL BLOOD < 10 mg/dL (<10); UREA NITROGEN BLOOD 11 mg/dL (9-23)
[2025-03-15 04:01] LABS: ASPARTATE AMINOTRANSFERASE 19 IU/L (<34); BILIRUBIN DIRECT < 0.1 mg/dL (<=3.0); BILIRUBIN TOTAL 0.3 mg/dL (0.1-1.0); PROTEIN TOTAL 7.6 g/dL (6.0-8.3); TROPONIN I HIGH SENSITIVITY 7 ng/L (3.0-34)
[2025-03-15 04:02] LABS: INR 1.1
[2025-03-15] MEDS: FUROSEMIDE 20MG/2ML VIAL IVP NR (05:07)
[2025-03-15] MEDS ORDERED: NALOXONE HCL 0.4MG/ML VIAL IV PRN (05:15)
[2025-03-15] MEDS: OXYCODONE HCL/ACETAMINOPHEN 5/325MG TABLET PO PRN (06:09)
[2025-03-15 08:25] VITALS: BP 102/86; PULSE 78; RESP 20; TEMP 36.9; O2SAT 100
== END 2025-03-15 08:49 | disposition short-term general hospital (02) ==
LOC: ER 02:46 → EDBEDREQTM 04:37 → EDBEDREQ 04:37 → ENRESERV 04:49 → ER 08:49 → CMPBEDREQ 03-17 22:26
DX: I11.0 Hypertensive heart disease with heart failure (principal); I50.9 Heart failure, unspecified; R07.89 Other chest pain; R06.02 Shortness of breath; J44.9 Chronic obstructive pulmonary disease, unspecified; I44.7 Left bundle-branch block, unspecified; Z79.82 Long term (current) use of aspirin; Z79.84 Long term (current) use of oral hypoglycemic drugs; Z79.899 Other long term (current) drug therapy; Z88.6 Allergy status to analgesic agent; Z95.0 Presence of cardiac pacemaker
CPT/HCPCS: 80076; 80048; 80320; 83880; 83690; 85025; 85610; 85730; 84484; 36415; 71045; 93005; 99285; J1938; Z7610 ×2; A4606; G0480

== ENCOUNTER 2025-04-05 14:31 | Emergency (ER) | payer BC ==
[~2025-04-05] VITALS: Ht 160 cm; Wt 118.0 kg
[2025-04-05 14:32] VITALS: O2SAT 98
[2025-04-05 15:31] LABS: BASOPHILS % 0.6 % (0.0-2.0); EOSINOPHILS % 0.7 % (0.0-5.0); HEMATOCRIT. 37.6 % (36.0-48.0); HEMOGLOBIN. 11.6 g/dL (12.0-16.0); LYMPHOCYTES % 20.2 % (20.0-50.0); MEAN PLATELET VOLUME 8.5 fl (7.4-10.4); MONOCYTES % 11.5 % (2.0-8.0); NEUTROPHILS % 67.0 % (40.0-76.0); PLATELET 232 x1000/uL (130-400); RED BLOOD CELL COUNT 4.57 mill/uL (4.2-5.4); RED CELL DISTRIBUTION WIDTH 18.2 % (11.6-14.6)
[2025-04-05 15:42] LABS: INR 1.1
[2025-04-05 15:43] LABS: CREATININE 0.7 mg/dL (0.6-1.0)
[2025-04-05 15:44] LABS: UREA NITROGEN BLOOD 14 mg/dL (9-23)
[2025-04-05 15:45] LABS: ASPARTATE AMINOTRANSFERASE 15 IU/L (<34)
[2025-04-05 15:46] LABS: BILIRUBIN DIRECT < 0.1 mg/dL (<=3.0); BILIRUBIN TOTAL 0.2 mg/dL (0.1-1.0); PROTEIN TOTAL 7.0 g/dL (6.0-8.3); TROPONIN I HIGH SENSITIVITY 6 ng/L (3.0-34)
[2025-04-05] MEDS: MORPHINE SULFATE 4 MG/ML INJ (FOR IV/IM USE) IV ONE (16:05)
[2025-04-05] MEDS: FUROSEMIDE 40MG/4ML VIAL IVP ONE (16:30)
[2025-04-05 17:20] VITALS: BP 125/71; PULSE 78; RESP 20; TEMP 36.8; O2SAT 100
[2025-04-26] MEDS ORDERED: AMI2 PO (06:15)
[2025-05-08] MEDS ORDERED: SPIR25TA6 PO (08:31)
[2025-05-08] MEDS ORDERED: CLOP-31 MT (08:31)
[2025-05-08] MEDS ORDERED: LOSA50TA41 MT (08:31)
[2025-05-08] MEDS ORDERED: CARV12.545 PO (08:31)
[2025-05-08] MEDS ORDERED: EMPA10TA PO (08:31)
[2025-05-08] MEDS ORDERED: FURO40TA5 PO (08:31)
[2025-05-08] MEDS ORDERED: ALBU18HF2 IH (08:31)
[2025-05-08] MEDS ORDERED: ASPI-1406 MT (08:31)
[2025-05-08] MEDS ORDERED: LIP40 MT (08:31)
[2025-05-08] MEDS ORDERED: FLUT1DIS3 INH (08:31)
[2025-06-14] MEDS ORDERED: COR12 PO (10:48)
[2025-06-14] MEDS ORDERED: ASPI-1406 PO (10:48)
[2025-06-14] MEDS ORDERED: LOSA25TA26 PO (10:48)
[2025-06-14] MEDS ORDERED: EMPA10TA PO (10:48)
[2025-06-14] MEDS ORDERED: CLOP-31 PO (10:48)
[2025-06-14] MEDS ORDERED: LIP40 PO (10:48)
[2025-06-14] MEDS ORDERED: FURO-151 PO (11:13)
== END 2025-04-05 17:58 | disposition short-term general hospital (02) ==
LOC: ER 14:53 → EDBEDREQ 14:59 → CANBEDREQ 16:17 → ER 17:58
DX: R07.89 Other chest pain (principal); J44.0 Chronic obstructive pulmonary disease with (acute) lower respiratory infection; E11.9 Type 2 diabetes mellitus without complications; I11.0 Hypertensive heart disease with heart failure; I44.7 Left bundle-branch block, unspecified; I48.91 Unspecified atrial fibrillation; I50.9 Heart failure, unspecified; Z79.82 Long term (current) use of aspirin; Z79.84 Long term (current) use of oral hypoglycemic drugs; Z79.899 Other long term (current) drug therapy; Z88.6 Allergy status to analgesic agent; Z95.0 Presence of cardiac pacemaker
CPT/HCPCS: 80076; 80048; 83880; 83735; 85025; 85610; 85730; 84484; 36415; 71045; 93005; 96374; 99291; J2270; Z7610 ×3

== ENCOUNTER 2025-06-10 23:40 | Inpatient (IN) | payer BC, MEDICAID ==
[~2025-06-10] VITALS: Ht 160 cm; Wt 140.6 kg
[~2025-06-10 23:40] MED LIST changes: +ALBU18HF2 IH; +AMI2 PO; +FLUT1DIS3 INH; -SPIR25TA6 PO
[2025-06-10 23:43] VITALS: O2SAT 97
[2025-06-11] MEDS: ONDANSETRON HCL 4MG/2ML INJ IV ONE (01:09)
[2025-06-11] MEDS: MORPHINE SULFATE 4 MG/ML INJ (FOR IV/IM USE) IV ONE (01:10)
[2025-06-11 01:21] LABS: BASOPHILS % 0.4 % (0.0-2.0); EOSINOPHILS % 0.5 % (0.0-5.0); HEMATOCRIT. 35.5 % (36.0-48.0); HEMOGLOBIN. 10.9 g/dL (12.0-16.0); LYMPHOCYTES % 19.2 % (20.0-50.0); MEAN PLATELET VOLUME 9.5 fl (7.4-10.4); MONOCYTES % 10.8 % (2.0-8.0); NEUTROPHILS % 69.1 % (40.0-76.0); PLATELET 216 x1000/uL (130-400); RED BLOOD CELL COUNT 4.18 mill/uL (4.2-5.4); RED CELL DISTRIBUTION WIDTH 16.7 % (11.6-14.6)
[2025-06-11 01:37] LABS: CREATININE 0.7 mg/dL (0.6-1.0)
[2025-06-11 01:38] LABS: UREA NITROGEN BLOOD 10 mg/dL (9-23)
[2025-06-11 01:39] LABS: ASPARTATE AMINOTRANSFERASE 23 IU/L (<34)
[2025-06-11 01:40] LABS: BILIRUBIN DIRECT < 0.1 mg/dL (<=3.0); BILIRUBIN TOTAL 0.2 mg/dL (0.1-1.0); PROTEIN TOTAL 7.3 g/dL (6.0-8.3); TROPONIN I HIGH SENSITIVITY 6 ng/L (3.0-34)
[2025-06-11] MEDS: FUROSEMIDE 40MG/4ML VIAL IVP SCH ×2 (04:00→09:32)
[2025-06-11] MEDS ORDERED: CLONIDINE 0.1MG TABLET PO PRN (06:30)
[2025-06-11] MEDS ORDERED: IPRATROPIUM/ALBUTEROL 0.5-3(2.5)MG/3ML NEB HHN PRN (06:30)
[2025-06-11] MEDS ORDERED: ONDANSETRON HCL 4MG/2ML INJ IV PRN (06:30)
[2025-06-11] MEDS ORDERED: MAGNESIUM/ALUMINUM HYDROXIDE/SIMETHICONE 30ML UDC PO PRN (06:30)
[2025-06-11] MEDS ORDERED: ACETAMINOPHEN 325MG TABLET PO PRN ×4 (06:30→07:00)
[2025-06-11] MEDS ORDERED: ZOLPIDEM TARTRATE 5MG TABLET PO PRN (06:30)
[2025-06-11] MEDS: MORPHINE SULFATE 4 MG/ML INJ (FOR IV/IM USE) IV SCH (06:34)
[2025-06-11 08:00] VITALS: BP 119/60; PULSE 79; RESP 22; TEMP 36.6; O2SAT 98
[2025-06-11 08:44] VITALS: BP 119/60; PULSE 79; RESP 22; TEMP 36.5848
[2025-06-11] MEDS ORDERED: CLOPIDOGREL 75MG TABLET PO SCH (09:00)
[2025-06-11] MEDS: DIPHENHYDRAMINE 50MG/ML VIAL IV PRN (09:36)
[2025-06-11] MEDS: ENOXAPARIN 40MG/0.4ML SYR SUBCUT SCH (09:36)
[2025-06-11] MEDS: PANTOPRAZOLE 40MG DR TABLET PO SCH (09:36)
[2025-06-11] MEDS: EMPAGLIFLOZIN 10MG TABLET PO SCH (09:37)
[2025-06-11] MEDS: CLOPIDOGREL 75MG TABLET PO SCH (09:37)
[2025-06-11] MEDS: LOSARTAN 25 MG TABLET PO SCH (09:37)
[2025-06-11] MEDS: CARVEDILOL 12.5MG TABLET PO SCH (09:37)
[2025-06-11] MEDS: ASPIRIN 81MG EC TABLET PO SCH (09:37)
[2025-06-11 10:12] LABS: TROPONIN I HIGH SENSITIVITY 8 ng/L (3.0-34)
[2025-06-11 12:00] VITALS: BP 130/70; PULSE 73; RESP 20; TEMP 36.6; O2SAT 98
[2025-06-11] MEDS: SODIUM CHLORIDE 0.9% 3ML FLUSH IVF SCH (14:00)
[2025-06-11] MEDS ORDERED: MORPHINE SULFATE 4 MG/ML INJ (FOR IV/IM USE) IV PRN (14:45)
[2025-06-11] MEDS ORDERED: NALOXONE HCL 0.4MG/ML VIAL IV PRN (14:45)
[2025-06-11 16:00] VITALS: BP 135/60; PULSE 65; RESP 16; TEMP 36.6; O2SAT 98
[2025-06-11] MEDS: MORPHINE SULFATE 10 MG/ML INJ (NOT FOR IM USE) IV PRN (16:06)
[2025-06-11 20:00] VITALS: BP 137/83; PULSE 72; RESP 19; TEMP 36.5; O2SAT 96
[2025-06-11] MEDS: ATORVASTATIN CALCIUM 40MG TABLET PO SCH (20:59)
[2025-06-12] VITALS: BP 128/62; PULSE 70; RESP 18; TEMP 36.4; O2SAT 99
[2025-06-12 02:23] LABS: TROPONIN I HIGH SENSITIVITY 7 ng/L (3.0-34)
[2025-06-12 04:00] VITALS: BP 125/70; PULSE 71; RESP 18; TEMP 36.4; O2SAT 98
[2025-06-12 08:00] VITALS: BP 127/70; PULSE 75; RESP 18; TEMP 36.6; O2SAT 99
[2025-06-12 16:00] VITALS: BP 116/60; PULSE 72; RESP 17; TEMP 37; O2SAT 97
[2025-06-12] MEDS ORDERED: IPRATROPIUM/ALBUTEROL 0.5-3(2.5)MG/3ML NEB HHN PRN (18:30)
[2025-06-12 20:00] VITALS: BP 142/81; PULSE 78; RESP 19; TEMP 36.8; O2SAT 98
[2025-06-12] MEDS: MORPHINE SULFATE 10 MG/ML INJ (NOT FOR IM USE) IV PRN (21:20)
[2025-06-13] VITALS: BP 127/80; PULSE 78; RESP 20; TEMP 36.4; O2SAT 99
[2025-06-13 04:00] VITALS: BP 122/67; PULSE 76; RESP 20; TEMP 36.8; O2SAT 98
[2025-06-13 08:00] VITALS: BP 120/66; PULSE 75; RESP 20; TEMP 36.5; O2SAT 98
[2025-06-13] MEDS ORDERED: EPINEPHRINE 0.1MG/ML (1:10,000) 10ML SYR ONE (09:16)
[2025-06-13] MEDS ORDERED: FENTANYL CITRATE/PF 50MCG/ML 2ML VIAL ONE (09:17)
[2025-06-13] MEDS ORDERED: DIPHENHYDRAMINE 50MG/ML VIAL ONE (09:17)
[2025-06-13] MEDS ORDERED: VERAPAMIL HCL 2.5 MG/1 ML 2ML VIAL IV ONE (09:17)
[2025-06-13] MEDS ORDERED: HEPARIN 1000 UNITS/ML 10ML ONE (09:17)
[2025-06-13] MEDS ORDERED: ATROPINE SULFATE 1MG/10ML SYR ONE (09:17)
[2025-06-13] MEDS ORDERED: MIDAZOLAM HCL 2 MG/2 ML VIAL ONE (09:17)
[2025-06-13] MEDS ORDERED: IODIXANOL 320MG/ML 100 ML BOTTLE IV ONE (09:18)
[2025-06-13] MEDS ORDERED: LIDOCAINE HCL 1% 20ML VIAL ONE (09:18)
[2025-06-13] MEDS ORDERED: ACETAMINOPHEN 325MG TABLET PO PRN (11:00)
[2025-06-13] MEDS ORDERED: ATROPINE SULFATE 1MG/10ML SYR IV PRN (11:00)
[2025-06-13] MEDS: FUROSEMIDE 40MG/4ML VIAL IVP SCH (11:00)
[2025-06-13 16:00] VITALS: BP 125/65; PULSE 80; RESP 22; TEMP 36.7; O2SAT 98
[2025-06-13] MEDS: METOLAZONE 2.5MG TABLET PO NR (18:38)
[2025-06-13] MEDS: TRAMADOL 50MG TABLET PO PRN (18:39)
[2025-06-13 20:00] VITALS: BP 129/77; PULSE 78; RESP 20; TEMP 36.2; O2SAT 97
[2025-06-14 04:00] VITALS: BP 131/72; PULSE 76; RESP 21; TEMP 35.8; O2SAT 97
[2025-06-14 08:00] VITALS: BP 130/77; PULSE 58; RESP 18; TEMP 36.4; O2SAT 98
[2025-06-14] MEDS ORDERED: LOSA25TA26 PO (10:48)
[2025-06-14] MEDS ORDERED: EMPA10TA PO (10:48)
[2025-06-14] MEDS ORDERED: COR12 PO (10:48)
[2025-06-14] MEDS ORDERED: ASPI-1406 PO (10:48)
[2025-06-14] MEDS ORDERED: CLOP-31 PO (10:48)
[2025-06-14] MEDS ORDERED: LIP40 PO (10:48)
[2025-06-14] MEDS ORDERED: FURO-151 PO (11:13)
[2025-06-14 11:17] LABS: BASOPHILS % 0.4 % (0.0-2.0); EOSINOPHILS % 1.3 % (0.0-5.0); HEMATOCRIT. 34.9 % (36.0-48.0); HEMOGLOBIN. 10.7 g/dL (12.0-16.0); LYMPHOCYTES % 17.4 % (20.0-50.0); MEAN PLATELET VOLUME 9.9 fl (7.4-10.4); MONOCYTES % 10.0 % (2.0-8.0); NEUTROPHILS % 70.9 % (40.0-76.0); PLATELET 224 x1000/uL (130-400); RED BLOOD CELL COUNT 4.08 mill/uL (4.2-5.4); RED CELL DISTRIBUTION WIDTH 16.3 % (11.6-14.6)
[2025-06-14 11:33] LABS: CREATININE 0.7 mg/dL (0.6-1.0); UREA NITROGEN BLOOD 14 mg/dL (9-23)
[2025-06-14 12:00] VITALS: BP 144/75; PULSE 83; RESP 20; TEMP 36.4; O2SAT 98
[2025-06-14 15:47] VITALS: BP 135/86; PULSE 76; RESP 20; TEMP 97.5
[2025-06-14] MEDS ORDERED: FUROSEMIDE 40MG TABLET PO SCH (18:00)
== END 2025-06-14 16:00 | disposition home or self-care (01) | DRG 192 ==
LOC: ER 06-11 00:05 → 5WST 06-11 04:16 → EDBEDREQTM 06-11 04:35 → EDBEDREQ 06-11 04:35 → ENRESERV 06-11 07:01 → 5WST 06-12 18:39
PROVIDERS: ADMIT Internal Medicine; ATTEND Internal Medicine
PROC: 4A023N7 Measurement of Cardiac Sampling and Pressure, Left Heart, Percutaneous Approach (ICD-10-PCS; principal; 2025-06-13)
PROC: B211YZZ Fluoroscopy of Multiple Coronary Arteries using Other Contrast (ICD-10-PCS; 2025-06-13)
DX: I11.0 Hypertensive heart disease with heart failure (principal); Z68.43 Body mass index [BMI] 50.0-59.9, adult; Z99.81 Dependence on supplemental oxygen; I50.23 Acute on chronic systolic (congestive) heart failure; I25.110 Atherosclerotic heart disease of native coronary artery with unstable angina pectoris; J44.89 Other specified chronic obstructive pulmonary disease; I48.20 Chronic atrial fibrillation, unspecified; E66.01 Morbid (severe) obesity due to excess calories; Z20.822 Contact with and (suspected) exposure to COVID-19; D64.9 Anemia, unspecified; I25.2 Old myocardial infarction; Z88.6 Allergy status to analgesic agent; Z95.5 Presence of coronary angioplasty implant and graft; Z79.899 Other long term (current) drug therapy; Z88.8 Allergy status to other drugs, medicaments and biological substances
CPT/HCPCS: 36415; 71045; 80048; 80076; 83880; 84484; 85025; 87426; 93005; 93458; 96374; 96375; 96376; 99285; A4606; C1769; C1887; C1893; J0461; J1200; J1644; J1650; J1938; J2003; J2250; J2270; J2405; J3010; J3490; Q9967